=== PATIENT | male | born 1955 | race Caucasian/White ===

== ENCOUNTER 2024-03-31 13:45 | Inpatient (IN) | payer MEDICARE, OTHER, SELFPAY ==
[2024-03-31] VITALS (8 sets, daily range): BP systolic 89–146; BP diastolic 62–91; BMI 37.4
--- NOTE | 2024-03-31 10:54 | ED.GENMED ---
History of Present Illness
General
Chief Complaint: Breathing Problem
Source: patient
Exam Limitations: none
Time Seen by Provider: 03/31/24 10:44
Travel History
Have you had any contact with someone who has COVID-19?: No
Do you have any symptoms of coronavirus? Fever > 100 degrees, chills, cough, shortness of breath, sore throat, loss of taste or smell, muscle aches, or headache?: No
History of Present Illness
History of Present Illness:
69-year-old male with history of COPD, CHF on 3 L of oxygen chronically presents complaining of increased shortness of breath of the past 3 weeks with swelling in the legs. He is on Lasix 80 mg twice a day. He is also advised to take an additional
metolazone if he has increased swelling. He has been taking metolazone without any relief. He denies chest pain. No fevers. No abdominal pain. He is currently not anticoagulated and does have history of DVTs. No other complaints at this time
Past History
Past History
ED Past Medical History: Arrthythmia, CAD, CHF, COPD, HTN, Hypercholesterolemia, Other (Pancreatitis/pulmonary hypertension/sleep apnea) and Other (syncope req pacer/defib)
ED Past Surgical History: Cardiac (pacer/defib)
Patient has exhibited threatening behavior?: No
PSI?: No
Social History
Tobacco: Former smoker
Alcohol: None
Personal:
Living: with family
Employment: Employed
Family History
Family History: CAD and Other (Mother with coronary disease stents and CABG)
Phy Exam
Physical Exam
Physical Exam:
General: Chronically ill-appearing male slight increased work of breathing
HEENT: Normocephalic atraumatic heart: Regular rate and rhythm no murmurs
Lungs: Breath sounds distant bilaterally may be secondary to body habitus no obvious rales
Extremities: Significant pitting edema bilateral lower extremities
Skin is warm no rash
Scores
Heart Failure Risk
Heart Failure Risk Score: Not Applicable
Course
Orders/Labs/Results
Orders:
Orders
03/31/24 10:53
Venous Doppler Lwr Ext Bilat [US Periph Venous LOWER Ext Jonas] Urgent
Comment:
Reason For Exam: swelling
03/31/24 10:54
CR Chest - 2 Views Urgent
Comment:
Reason For Exam: sob
03/31/24 11:22
Complete Blood Count/With Diff Urgent
Comprehensive Metabolic Panel Urgent
Lipase Urgent
NT-proBNP Urgent
03/31/24 12:25
Furosemide [Lasix] 80 mg IV NOW STA
Abnormal Lab Results
03/31/24
11:22
WBC 14.5 H 10^3/uL
(4.8-10.8)
Hgb 11.1 L g/dL
(13.0-18.0)
MCV 79.7 L fL
(80.0-94.0)
MCH 22.5 L pg
(27.0-31.0)
MCHC 28.2 L g/dL
(33.0-37.0)
RDW 16.0 H %
(11.5-14.5)
Plt Count 439 H 10^3/uL
(130-400)
Abs Immat Gran (auto) 0.1 H 10^3/uL
(0-0.05)
Absolute Neuts (auto) 11.9 H 10^3/uL
(1.4-6.5)
Absolute Lymphs (auto) 0.8 L 10^3/uL
(1.2-3.4)
Absolute Monos (auto) 1.4 H 10^3/uL
(0.1-0.6)
Immature Gran % 0.8 H %
(0-0.5)
Neutrophils % 82.2 H %
(42.2-75.2)
Lymphocytes % 5.3 L %
(20.5-51.1)
Monocytes % 9.6 H %
(1.7-9.3)
Chloride 72 L mmol/L
(98-107)
Carbon Dioxide 55 H mmol/L
(22-30)
BUN 53 H mg/dl
(9-20)
Creatinine 1.7 H mg/dL
(0.7-1.3)
Glucose 134 H mg/dl
(70-99)
Albumin 3.4 L g/dl
(3.5-5.0)
03/31/24 11:22
03/31/24 11:22
Vital Signs
Initial and Last Documented VS:
Initial Vital Signs
Temp Pulse Resp BP Pulse Ox
99.2 F 71 20 130/69 93
03/31/24 10:26 03/31/24 10:26 03/31/24 10:26 03/31/24 10:26 03/31/24 10:26
Last Documented Vital Signs
Temp Pulse Resp BP Pulse Ox
99.2 F 71 20 130/69 93
03/31/24 10:26 03/31/24 10:26 03/31/24 10:26 03/31/24 10:26 03/31/24 10:26
MDM/Problems Addressed
Differential Diagnosis Includes:
Shortness of breath swelling. Consider CHF exacerbation versus COPD exacerbation. Will check for DVTs in the legs secondary to swelling. BNP basic labs chest x-ray pending.
I reviewed prior records. Most recent echocardiogram showed left ventricular ejection fractures greater than 75%
Chronic medical conditions affecting today's care including pulmonary hypertension, COPD and CHF
*Critical Care Note
Total Time (30-74mins, 75-104mins- exclusive of procedures): Not Applicable
Update Note
Update Note:
Chest x-ray demonstrates right pleural effusion. Patient is volume overloaded on exam. Suspect CHF flare. Venous ultrasound bilateral lower extremities negative for acute DVT. Lasix IV ordered. Will admit to hospital. Discussed with admitting
team.
ED Attending Note
-
Portions of this chart may have been created with voice recognition software.� Occasional wrong word or��sound alike� substitutions may have occurred due to the inherent limitations of voice recognition software.
Discharge Plan
Departure
Patient Disposition: Admit
Date of Disposition: 03/31/24
Time of Disposition: 12:26
Admit to: Telemetry
Presentation/result/management discussed w/ accepting MD/DO: Hospitalist
Discharge Problem:
CHF (congestive heart failure)
Prescriptions:
No Action
isosorbide mononitrate 30 MG tablet extended release 24 hr
30 mg PO DAILY
bupropion HCl 300 MG tablet extended release 24 hr
300 mg PO DAILY
budesonide [Pulmicort] 0.5 MG/2 ML suspension for nebulization
0.5 mg IH R BID
Patient Comments:
MIX WITH ARFORMOTEROL
arformoterol [Brovana] 15 MCG/2 ML solution for nebulization
15 mcg IH R BID
albuterol sulfate 2.5 MG/3 ML solution for nebulization
2.5 mg inhalation R Q4HPRN PRN (Reason: SOB)
Yupelri 175 MCG/3 ML solution for nebulization
175 mcg IH R DAILY@1200
aspirin 81 mg Tablet,Delayed Release (Dr/Ec)
81 mg PO DAILY
potassium chloride [Klor-Con M20] 20 MEQ tablet,ER particles/crystals
20 meq PO BID
furosemide 80 MG tablet
80 mg PO BID@0800,1600
prednisone 20 mg Tablet
40 mg PO DAILY Qty: 10 0RF
Rx Instructions:
for 5 days
metolazone 2.5 mg Tablet
2.5 mg PO DAILYPRN PRN (Reason: weight gain) Qty: 5 0RF
Rx Instructions:
for weight gain of 2-3 pounds take one tab
Referrals:
Paula Mariee MD [Family Provider] -
Interventions
Interventions:
*Risk Screen - Suicide Last Done: 03/31/24 11:54
*General Assessment Last Done: 03/31/24 11:54
*Neglect/Abuse Screening Last Done: 03/31/24 11:54
ED- Fall Risk Assessment Last Done: 03/31/24 11:54
*ED COVID-19 Vaccine History Last Done: 03/31/24 10:26
ED- Cardiac Assessment Last Done: 03/31/24 11:54
ED- Pulmonary Assessment Last Done: 03/31/24 11:54
Discharge Date and Time
Print Language: BHUTANESE
[2024-03-31 11:36] LABS: % Basophils 0.4 % (0-2); % Eosinophils 1.7 % (0-6); % Immature Granulocytes 0.8 % (0-0.5); % Lymphocytes 5.3 % (20.5-51.1); % Monocytes 9.6 % (1.7-9.3); % Neutrophils 82.2 % (42.2-75.2); Absolute Basophils 0.1 10^3/uL (0-0.2); Absolute Eosinophils 0.2 10^3/uL (0-0.7); Absolute Immature Granulocytes 0.1 10^3/uL (0-0.05); Absolute Lymphocytes 0.8 10^3/uL (1.2-3.4); Absolute Monocytes 1.4 10^3/uL (0.1-0.6); Absolute Neutrophils 11.9 10^3/uL (1.4-6.5); Hematocrit 39.3 % (39.0-52.0); Hemoglobin 11.1 g/dL (13.0-18.0); Mean Corp Hgb Conc. 28.2 g/dL (33.0-37.0); Mean Corpuscular Hgb 22.5 pg (27.0-31.0); Mean Corpuscular Volume 79.7 fL (80.0-94.0); Mean Platelet Volume 10.3 fL (7.4-10.4); Nucleated Red Blood Cells % 0 % (-); Platelet Count 439 10^3/uL (130-400); Red Blood Cell Count 4.93 10^6/uL (4.70-6.10); White Blood Cell Count 14.5 10^3/uL (4.8-10.8)
[2024-03-31 11:52] LABS: ALT (SGPT) 20 U/L (0-50); AST (SGOT) 27 U/L (17-59); Albumin 3.4 g/dl (3.5-5.0); Alkaline Phosphatase 112 U/L (38-126); Blood Urea Nitrogen 53 mg/dl (9-20); Calcium 8.7 mg/dl (8.4-10.2); Chloride 72 mmol/L (98-107); Glucose 134 mg/dl (70-99); Lipase 152 U/L (23-300); Sodium 135 mmol/L (135-145); Total Bilirubin 0.5 mg/dl (0.2-1.3); Total Protein 6.7 g/dl (6.3-8.2); eGFR 42.57
[2024-03-31 11:58] LABS: NT-proBNP 370 pg/ml
[2024-03-31 12:04] LABS: Carbon Dioxide 55 mmol/L (22-30)
[2024-03-31 12:21] LABS: Hypochromasia 1+; Normal RBC Morphology No; Stomatocytes Slight
[2024-03-31] MEDS: LASIX 80 MG IV ×2 (12:34→17:32)
[2024-03-31 13:13] LABS: Magnesium 2.3 mg/dl (1.6-2.3)
--- NOTE | 2024-03-31 13:41 | HPS.HSE ---
Addendum entered and electronically signed by Collette Meade MD 03/31/24 14:25:
I saw and examined the patient.
The [employer] or PA's note was reviewed and I agree with the note.
Comment:
69 male presented with worsening sob, edema in legs and weakness with lethargy over last few weeks
He started to gain weight since Rocco time. Last visit with his pulmonary [facility] doctor Dr Shah discussed need to treatment weight gain/edema and doing pulmonary rehab which pt declined due to need to some pre-rehab testing.
Hx of not using his C pap . Does not check SaO2 upon having lethargy episodes/ tremors.
Physical Exam
General: Comfortable and Conversant, obese.
HEENT: Anicteric, Moist mucous membranes and Oxygen (Nasal Cannula)
Respiratory: Mild wheezes (Expiratory - Scatter), Rales (Bilateral bases) and Non Labored Respirations
Cardiac: S1/S2 and Regular Rhythm; No Murmur
GI: Soft, Non Tender and Other (Protuberant)
Musculoskeletal: No Clubbing, No Cyanosis and Other (+3 pitting edema bilateral lower ext )
Skin: Warm and Dry; No Rash
Neuro: Awake, Alert, Oriented and Nonfocal/grossly intact
Psych: Calm
Assessment and plan
Acute on chronic dyspnea with wheezing/lethargy and trauma at home
History of obstructive sleep apnea/pulmonary hypertension/acute on chronic heart failure with preserved ejection fraction/weight gain-obesity/noncompliant to his CPAP although he reported he was trying to use it more than before (patient reported
intolerance to CPAP)
Decompensation secondary to worsening all the above
Admit the patient to the hospital/telemetry floor
Start the patient on IV diuretic treatment. Hold Zaroxolyn while using intravenous furosemide
Continue with oxygen therapy but avoid CO2 retention
No indication for antibiotics
Monitor renal function while on aggressive diuretic therapy
Counseling to lose weight and use medications/use of CPAP
Continue inhalation therapy
Short course of prednisone
CT of the chest to rule out right-sided pneumonia
Blood culture x 2
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 He saw Dr. Mars in the past.
Recent echo in April 2023 showed LVEF 75%/trace MR/mild to moderate TR with elevated pulmonary artery pressure at 44 mmHg.
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 Bill
Might need to repeat right heart catheterization, defer decision to response to diuretic treatment and further evaluation
Appreciate pulmonary and cardiology input
# Obesity
# Obstructive sleep apnea
# Chronic kidney disease stage IIIb
No renal colic or dysuria. No hematuria. Monitor renal function while on diuretics
# Primary hypertension
# History of orthostatic hypotension
# History of right subclavian DVT after dialysis catheter placement 2018
# History of VT status post single-chamber [employer] ICD in 2018
# History of polycythemia vera. Hemoglobin at 11
# DVT prophylaxis
Total time spent to see the patient, examine the patient on the floor, review data and lab results, discuss treatment plan with patient, ER doctor and nursing staff around 75 minutes
Original Note:
Family Physician
-
Family Physician: Paula Mariee
Chief Complaint
-
Shortness of breath and increased lower ext edema
History of Present Illness
This is a 69 year old male with a past medical history of COPD, pulmonary hypertension, CHF, V-Tach with defibrillator who presents today for worsening shortness of breathe and lower extremity swelling x 3 weeks. He has not been weighing himself
regularly and states his last weight he took was last Sunday at 256 lbs. Per at bedside, he has been stable at 240lbs last year. He is chronically on 3L O2 which he states he has been wearing daily and at night. He states his pulse ox at
home has been stable in the low 90's. He has been taking 80 mg Lasix BID and metolazone daily for the past 7-8 days without any relief of the LE edema. He also complains of increase in fatigue and need for sleep for the past week. He denies fevers,
chills, chest pain, palpitations, coughing, wheezing, N/V or abdominal pain.
Medical History
Past Medical History
Past Medical History: Reports Other
Additional Past Medical History:
Chronic Hypoxic Respiratory Failure
Pulmonary Hypertension
COPD
Obstructive Sleep Apnea
Non-Obstructive Coronary Artery Disease
Chronic HFpEF
CKD Stage III
Hx V-Tach s/p Defibrillator
Hx DVT
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
Past Surgical History: Reports Other
Additional Past Surgical History:
Pancreatic stent
Bowel Resection
Right Thumb Amputation
AICD Placement
Social History
Tobacco: Former Smoker (Quit over 30 years ago)
Personal:
Living: With Family
Family History
Family History: Not pertinent
Allergies / Home Medications
Allergies reflects when Allergies were last updated in [facility].
Home Medications with original date entered in [facility]
Allergy/Medication List:
Allergies
Allergy/AdvReac Type Severity Reaction Status Date / Time
Penicillins Allergy hives,rash Verified 03/31/24 10:28
Home Medications
bupropion HCl 300 mg 24 hr tablet, extended release 300 mg PO DAILY Depression 05/25/20
isosorbide mononitrate 30 mg tablet,extended release 24 hr 30 mg PO DAILY Heart disease/condition 05/25/20
albuterol sulfate 2.5 mg/3 mL (0.083 %) solution for nebulization 2.5 mg inhalation R Q4HPRN PRN shortness of breath 03/30/22
arformoterol 15 mcg/2 mL solution for nebulization (Brovana) 15 mcg IH R BID COPD 03/30/22
budesonide 0.5 mg/2 mL suspension for nebulization (Pulmicort) 0.5 mg IH R BID COPD 03/30/22
revefenacin 175 mcg/3 mL solution for nebulization (Yupelri) 175 mcg IH R DAILY@1200 COPD 03/30/22
aspirin 81 mg tablet,delayed release 81 mg PO DAILY Blood Clot Prevention/Tx 05/01/23
furosemide 80 mg tablet 80 mg PO BID@0800,1600 Fluid Retention/Swelling 05/01/23
potassium chloride 20 mEq tablet,extended release(part/cryst) (Klor-Con M) 20 meq PO BID Electrolyte Repletion 05/01/23
metolazone 2.5 mg tablet 2.5 mg PO DAILYPRN PRN weight gain #5 tabs 05/02/23
azithromycin 250 mg tablet 250 mg PO MOWEFR Lung/Breathing Issues 03/31/24
cholecalciferol (vitamin D3) 50 mcg (2,000 unit) capsule (Vitamin D3) 50 mcg PO DAILY Supplement 03/31/24
gabapentin 300 mg capsule 300 mg PO HS Pain 03/31/24
krill 500 mg-omega 3 115 mg-dha 30 mg-epa 64 [id number]-ibfyu capsule 1 cap PO DAILY Supplement 03/31/24
omeprazole 40 mg capsule,delayed release 40 mg PO DAILY Gastrointestinal Issue 03/31/24
Review of Systems
-
A 12 point ROS was completed and negative except as noted: Yes
Constitutional: Denies Fever or Chills
Respiratory: Reports Trouble Breathing; Denies Cough
Cardiac: Denies Chest Pain or Palpitations
Abdomen/GI: Denies Abdominal Pain, Nausea or Vomiting
Physical Exam
Vital Signs
Vital Signs
Temp Pulse Resp BP Pulse Ox
99.2 F 66 16 124/62 94
03/31/24 10:26 03/31/24 13:15 03/31/24 13:15 03/31/24 13:00 03/31/24 13:15
Physical Exam
General: Comfortable and Conversant
HEENT: Anicteric, Moist mucous membranes and Oxygen (Nasal Cannula)
Respiratory: Wheezes (Expiratory - Scatter), Rales (Bilateral bases) and Non Labored Respirations
Cardiac: S1/S2 and Regular Rhythm; No Murmur
GI: Soft, Non Tender and Other (Protubrant)
Musculoskeletal: No Clubbing, No Cyanosis and Other (+3 pitting edema bilateral lower ext )
Skin: Warm and Dry; No Rash
Neuro: Awake, Alert, Oriented and Nonfocal/grossly intact
Psych: Calm
Laboratory Results
-
03/31/24 11:22
03/31/24 11:
Laboratory Results
Total Bilirubin 0.5 mg/dl (0.2-1.3) 03/31/24 11:
AST 27 U/L (17-59) 03/31/24 11:
ALT 20 U/L (0-50) 03/31/24 11:22
Alkaline Phosphatase 112 U/L (38-126) 03/31/24 11:
Lipase 152 U/L (23-300) 03/31/24 11:22
Data Reviewed
-
Diagnostic Radiology: Report Reviewed by me
Lab Data: Labs Reviewed by me
Old Records: Reviewed
Impression/Plan
-
Acute on Chronic HFpEF, concern for worsening pulmonary hypertension
-Consult Cardiology and Pulmonary
-Check Echo
-Continue Lasix 80mg IV BID
-Monitor Is&Os and Daily Weights
Chronic Hypoxic Respiratory Failure
Pulmonary Hypertension
-Continue supplemental oxygen at 3L via nasal cannula
-Goal pulse ox 90-92%
COPD, no acute exacerbation
-Continue Brovano, Pulmicort and Yupelri
-Continue azithromycin
Non-Obstructive Coronary Artery Disease
-Continue isosorbide mononitrate
CKD Stage III
-Creatinine at baseline - Monitor closely while on diuretics
Depression
-Continue bupropion
DVT proph: SC Heparin
Code Status: Full Code
--- NOTE | 2024-03-31 15:44 | W.CON.NEPH ---
Consultation
-
Date/Time Consultation Performed: 03/31/2024 3:44PM
Requesting Provider: Lucy Ortiz
Performing Provider: Jeanine Gaona
Reason for Consultation: CKD
Medical History
-
Chief Complaint: CKD
History of Present Illness:
Mr. Valerio is a 69YOM with PMH of COPD, pHTN, CHF, Vtach (with defib) who presents with LE swelling and SOB. Weights seems to be elevated. Has been taking lasix 80mg PO BID and metolazone daily without improvement in swelling. He denies fevers,
chills, nausea, vomitting, diarrhea, or chest pain.
Nephrology is consulted for elevated Cr. It seems that he has ranged from 1.6-1.9 since 2021. He was 1.4 in 2019.
Past Medical History
Chronic Hypoxic Respiratory Failure
Pulmonary Hypertension
COPD
Obstructive Sleep Apnea
Non-Obstructive Coronary Artery Disease
Chronic HFpEF
CKD Stage III
Hx V-Tach s/p Defibrillator
Hx DVT
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
Past Surgical History: Other (Pancreatic stent Bowel Resection Right Thumb Amputation AICD Placement)
Social History
Tobacco: Former Smoker
Alcohol: None
Drug: None
Living: With Family
Family History
Family History: Not Pertinent
Allergies / Home Medications
Allergy/AdvReac Type Severity Reaction Status Date / Time
Penicillins Allergy hives,rash Verified 03/31/24 10:28
�Medication �Instructions �Recorded �Confirmed �Type
bupropion HCl 300 mg 24 hr tablet, 300 mg PO DAILY Depression 05/25/20 03/31/24 History
extended release
isosorbide mononitrate 30 mg 30 mg PO DAILY Heart 05/25/20 03/31/24 History
tablet,extended release 24 hr disease/condition
albuterol sulfate 2.5 mg/3 mL 2.5 mg inhalation R Q4HPRN PRN 03/30/22 03/31/24 History
(0.083 %) solution for nebulization shortness of breath
arformoterol 15 mcg/2 mL solution 15 mcg IH R BID COPD 03/30/22 03/31/24 History
for nebulization (Brovana)
budesonide 0.5 mg/2 mL suspension 0.5 mg IH R BID COPD 03/30/22 03/31/24 History
for nebulization (Pulmicort)
revefenacin 175 mcg/3 mL solution 175 mcg IH R DAILY@1200 COPD 03/30/22 03/31/24 History
for nebulization (Yupelri)
aspirin 81 mg tablet,delayed 81 mg PO DAILY Blood Clot 05/01/23 03/31/24 History
release Prevention/Tx
furosemide 80 mg tablet 80 mg PO BID@0800,1600 Fluid 05/01/23 03/31/24 History
Retention/Swelling
potassium chloride 20 mEq 20 meq PO BID Electrolyte Repletion 05/01/23 03/31/24 History
tablet,extended
release(part/cryst) (Klor-Con M)
metolazone 2.5 mg tablet 2.5 mg PO DAILYPRN PRN weight gain 05/02/23 03/31/24 Rx
#5 tabs
azithromycin 250 mg tablet 250 mg PO MOWEFR Lung/Breathing 03/31/24 03/31/24 History
Issues
cholecalciferol (vitamin D3) 50 50 mcg PO DAILY Supplement 03/31/24 03/31/24 History
mcg (2,000 unit) capsule (Vitamin
D3)
gabapentin 300 mg capsule 300 mg PO HS Pain 03/31/24 03/31/24 History
krill 500 mg-omega 3 115 mg-dha 30 1 cap PO DAILY Supplement 03/31/24 03/31/24 History
mg-epa 64 fy-ljqzpyn-hymsk capsule
omeprazole 40 mg capsule,delayed 40 mg PO DAILY Gastrointestinal 03/31/24 03/31/24 History
release Issue
Review of Systems
-
History Source: Patient and Family
All other systems: Negative unless noted
Constitutional: Weight Gain and Fatigue
Abdomen/GI: Abdominal Pain
Musculoskeletal: Edema
Physical Exam
Vital Signs
Vital Signs
Temp Pulse Resp BP Pulse Ox
99.2 F 68 19 124/62 94
03/31/24 10:26 03/31/24 13:31 03/31/24 13:31 03/31/24 13:00 03/31/24 13:15
Lab Results
WBC 14.5 10^3/uL (4.8-10.8) H 03/31/24 11:22
RBC 4.93 10^6/uL (4.70-6.10) 03/31/24 11:22
Hgb 11.1 g/dL (13.0-18.0) L 03/31/24 11:22
Hct 39.3 % (39.0-52.0) 03/31/24 11:22
Plt Count 439 10^3/uL (130-400) H 03/31/24 11:22
Sodium 135 mmol/L (135-145) 03/31/24 11:22
Potassium 4.0 mmol/L (3.5-5.1) 03/31/24 11:22
Chloride 72 mmol/L (98-107) L 03/31/24 11:22
Carbon Dioxide 55 mmol/L (22-30) H 03/31/24 11:22
BUN 53 mg/dl (9-20) H 03/31/24 11:22
Creatinine 1.7 mg/dL (0.7-1.3) H 03/31/24 11:22
eGFR 42.57 03/31/24 11:22
Glucose 134 mg/dl (70-99) H 03/31/24 11:22
Calcium 8.7 mg/dl (8.4-10.2) 03/31/24 11:22
Bmb-Z-Jfybvlgmtza Pept 370 pg/ml 03/31/24 11:22
Albumin 3.4 g/dl (3.5-5.0) L 03/31/24 11:22
Physical Exam
General: AOx3
HEENT: PERRL and EOMI
Respiratory: Nonlabored Respirations and Other (coarse breath sounds)
Cardiac: S1/S2, Regular Rate/Rhythm and Edema
Breast: N/A
Abdomen: Soft, Nontender, Nondistended and Normal Bowel Sounds
Rectal: Deferred by Provider
Genito-urinary: Clear Urine
Musculoskeletal: No Clubbing, No Cyanosis and No Edema
Skin: Other (lichenification of bilateral lower extremities)
Neuro: Nonfocal/Grossly Intact
Psych: Mood/afflect pleasant and Insight/judgement good
Data Reviewed
-
Radiology: Image Personally Visualized and interpreted (clear CXR)
Labs: Labs Reviewed by me, Discussed with Patient and Discussed with Family
Old Records: Reviewed
Assessment/Plan
-
Assessment:
CKD 3
worsenign dyspnea (HFpEF exacerbation)
CAD
Obesity
HTN
DVT
Plan:
- patient has had remarkably stable Cr over the past few years
- most likely has CKD due to cardiac dysfunction vs. longstanding hypertension
- obtain UA (last 2021) and KUS to have a new baseline
- continue to trend BMPs while on aggressive diuresis (80IV BID), will defer diuretic regimen to cards/pulm
- most likely he will need to follow up with nephrology while outpatient
--- NOTE | 2024-03-31 15:55 | CON.CAR ---
Addendum entered and electronically signed by Cedrick Herrera DO 03/31/24 17:17:
I saw and examined the patient.
The General Teller's note was reviewed and I agree with the note.
Comment:
Plan:
Acute on chronic diastolic heart failure.
Discussed compliance with diet as he has been noncompliant with significant dietary indiscretion which likely led to his heart failure.
IV Lasix diuresis. He previously did not respond to Furoscix as an outpatient.
Check echo
Check EKG
He previously required midodrine due to hypotension.
Discussed with family at bedside
Original Note:
Consultation
Consultation Request
Date/Time Consultation Requested: 03/31/24
Date/Time Consultation Performed: 03/31/24
Requesting Provider: Dr. Meade
Performing Provider: Dr. Herrera
Reason for Consultation: Acute HFpEF
Medical History
-
History of Present Illness:
Patient came to [facility] today with increased SOB and edema and is now being admitted with acute HF so cardiology has been consulted. Patient has a history of VT s/p ICD, diastolic CHF and pancreatitis. He had gallstone pancreatitis leading to
multisystem organ failure and VDRF 02/2018. He was diagnosed with pancreatic pseudocyst and necrotizing pancreatitis as well. He was treated at [facility]. Then he was admitted to 04/2018 and while here had sustained VT so he had a single chamber
Medtronic ICD placed. Patient has had 2-3 admissions a year for acute HF since 2018, last admission was 04/2023. Since then patient has been doing well taking his outpatient dose of Lasix 80 mg PO BID plus metolazone 2.5 mg daily PRN weight gain.
Patient was seen in the cardiology office for weight gain and acute HF last year and tried to use Furoscix outpatient SQ Lasix device without success. Patient and say that edema started after eating Easter ham about a month ago. He then had ham
leftovers for a week. Then he was eating [employer] based salads with crackers and other times eating pretzels. Patient had weight gain and increased edema that his was able to get under control with metolazone x1, but then he continued to eat
crackers and pretzels. His has given him metolazone daily for the last week without diuresis.
PMH:
Chronic HFpEF
CKD 3, baseline appears to be Cre 1.4-1.7
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
history of VT s/p single chamber Medtronic ICD 05/15/18 as secondary prevention for syncope, VT
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
Obstructive sleep apnea, noncompliant w/ CPAP
Non-obstructive CAD by cath 05/13/18
COPD/obstructive lung disease, oxygen dependent 3 lpm at rest, followed by [place] [facility]
Pulmonary hypertension
Hypertension
Hyperlipidemia
h/o orthostatic hypotension
Osteoarthritis
h/o R subclavian vein DVT after dialysis catheter placement 2018.
h/o calf DVT (?left)
h/o traumatic amputation of R thumb
Past Medical History
Past Medical History: Other (in HPI)
Past Surgical History: Cardiac (ICD)
Social History
Tobacco: Former Smoker
Alcohol: None
Drug: None
Personal:
Living: With Family
Family History
Family History: CAD
Allergies / Home Medications
Allergy/AdvReac Type Severity Reaction Status Date / Time
Penicillins Allergy hives,rash Verified 03/31/24 10:28
�Medication �Instructions �Recorded �Confirmed �Type
bupropion HCl 300 mg 24 hr tablet, 300 mg PO DAILY Depression 05/25/20 03/31/24 History
extended release
isosorbide mononitrate 30 mg 30 mg PO DAILY Heart 05/25/20 03/31/24 History
tablet,extended release 24 hr disease/condition
albuterol sulfate 2.5 mg/3 mL 2.5 mg inhalation R Q4HPRN PRN 03/30/22 03/31/24 History
(0.083 %) solution for nebulization shortness of breath
arformoterol 15 mcg/2 mL solution 15 mcg IH R BID COPD 03/30/22 03/31/24 History
for nebulization (Brovana)
budesonide 0.5 mg/2 mL suspension 0.5 mg IH R BID COPD 03/30/22 03/31/24 History
for nebulization (Pulmicort)
revefenacin 175 mcg/3 mL solution 175 mcg IH R DAILY@1200 COPD 03/30/22 03/31/24 History
for nebulization (Yupelri)
aspirin 81 mg tablet,delayed 81 mg PO DAILY Blood Clot 05/01/23 03/31/24 History
release Prevention/Tx
furosemide 80 mg tablet 80 mg PO BID@0800,1600 Fluid 05/01/23 03/31/24 History
Retention/Swelling
potassium chloride 20 mEq 20 meq PO BID Electrolyte Repletion 05/01/23 03/31/24 History
tablet,extended
release(part/cryst) (Klor-Con M)
metolazone 2.5 mg tablet 2.5 mg PO DAILYPRN PRN weight gain 05/02/23 03/31/24 Rx
#5 tabs
azithromycin 250 mg tablet 250 mg PO MOWEFR Lung/Breathing 03/31/24 03/31/24 History
Issues
cholecalciferol (vitamin D3) 50 50 mcg PO DAILY Supplement 03/31/24 03/31/24 History
mcg (2,000 unit) capsule (Vitamin
D3)
gabapentin 300 mg capsule 300 mg PO HS Pain 03/31/24 03/31/24 History
krill 500 mg-omega 3 115 mg-dha 30 1 cap PO DAILY Supplement 03/31/24 03/31/24 History
mg-epa 64 [id number] capsule
omeprazole 40 mg capsule,delayed 40 mg PO DAILY Gastrointestinal 03/31/24 03/31/24 History
release Issue
Review of Systems
-
History Source: Patient
All other systems: Negative unless noted
Physical Exam
Vital Signs
Temp Pulse Resp BP Pulse Ox
99.2 F 68 19 124/62 94
03/31/24 10:26 03/31/24 13:31 03/31/24 13:31 03/31/24 13:00 03/31/24 13:15
GEN: No distress, awake, alert and oriented x3
HEENT: EOMI, MMM
LUNGS: Wearing oxygen at 3 L NC. Coarse BS without wheeze
CV: Reg, S1/S2, distant, heart sounds, no murmur
ABD: soft, BS+, NT, ND
EXT: +2 B/L right greater than left LE edema, no clubbing, cyanosis or lesions B/L
NEURO: Gross non-focal
SKIN: Warm, dry and pink. No rash
Lab Results
03/31/24 11:22
03/31/24 11:22
Zhv-M-Marwmqvxnvs Pept 370 pg/ml 03/31/24 11:22
Impression / Plan
-
PCP: Dr. Mariee
Primary Tester Equipment: Dr. Bill
Impression:
Acute on chronic HFpEF
Dietary indiscretion
CKD 3, baseline appears to be Cre 1.4-1.7
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
history of VT s/p single chamber Medtronic ICD 05/15/18 as secondary prevention for syncope, VT
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
Obstructive sleep apnea, noncompliant w/ CPAP
Non-obstructive CAD by cath 05/13/18
COPD/obstructive lung disease, oxygen dependent 3 lpm at rest, followed by [place] [facility]
Pulmonary hypertension
Hypertension
Hyperlipidemia
h/o orthostatic hypotension
Osteoarthritis
h/o R subclavian vein DVT after dialysis catheter placement 2017.
h/o calf DVT (?left)
h/o traumatic amputation of R thumb
ECHO 03/28/22: Technically difficult study, Definity used, EF 70%, moderate concentric LVH, hypokinetic RV free wall, PAP 45 to 50 mmHg
ECHO 05/02/23: EF greater than 75%, posterior MAC, thickened mitral valve leaflets, trace MR, mild to moderate TR, PAP 44 mmHg, dilated hypokinetic RV, no significant change compared to prior
Plan:
-Patient came to [facility] today with increased SOB and edema and is now being admitted with acute HF so cardiology has been consulted. Patient has a history of VT s/p ICD, diastolic CHF and pancreatitis. He had gallstone pancreatitis leading to
multisystem organ failure and VDRF 02/2018. He was diagnosed with pancreatic pseudocyst and necrotizing pancreatitis as well. He was treated at [facility]. Then he was admitted to 04/2018 and while here had sustained VT so he had a single chamber
Medtronic ICD placed. Patient has had 2-3 admissions a year for acute HF since 2018, last admission was 04/2023. Since then patient has been doing well taking his outpatient dose of Lasix 80 mg PO BID plus metolazone 2.5 mg daily PRN weight gain.
Patient was seen in the cardiology office for weight gain and acute HF last year and tried to use Furoscix outpatient SQ Lasix device without success. Patient and say that edema started after eating Easter ham about a month ago. He then had ham
leftovers for a week. Then he was eating [employer] salads with crackers and other times eating pretzels. Patient had weight gain and increased edema that his was able to get under control with metolazone x1, but then he continued to eat
crackers and pretzels. His has given him metolazone daily for the last week without diuresis.
-Weight not checked in the ER, but dry weight at last d/c was 235 lbs on 05/02/23.
-Patient has stopped responding to metolazone in addition to his Lasix 80 mg PO BID. Of note he previously did not respond to Furoscix as an outpatient.
-Recommend Lasix 80 mg IV BID for now. Can use metolazone PRN if no appreciable diuresis in the next 24 hours.
-Agree with checking echo
-EF was preserved by last echo 05/02/23
-Patient with a h/o hypotension and previously required midodrine. Not chronically on BB or HARI/ARB/ARNI.
-Device check this admission. He has a h/o VT in 2018, but no VT on last device check 11/2023
-Patient with known CKD 3 and nephrology has been consulted
-ECG not checked in ER, ordered, await results
[2024-03-31 16:08] LABS: TSH Reflex To Free T4 1.83 uIU/ml (0.47-4.68)
[2024-03-31] MEDS: HEPARIN 5000 UNITS SC (17:30)
[2024-03-31] MEDS: VENTOLIN NEBULES INH (17:30)
[2024-03-31] MEDS: PULMICORT 0.5 MG INH (18:10)
[2024-03-31] MEDS: VENTOLIN NEBULES 2.5 MG INH (18:10)
[2024-03-31 20:29] LABS: Urine Albumin Negative (Neg - Trace); Urine Bilirubin Negative (Negative); Urine Character Clear (Clear); Urine Color Yellow; Urine Glucose Negative (Negative); Urine Ketone Negative (Negative); Urine Leukocyte Trace (Negative); Urine Nitrite Negative (Negative); Urine Occult Blood Negative (Negative); Urine Urobilinogen Negative (Neg - 1+)
[2024-03-31 20:40] LABS: Urine Bacteria Few (Negative); Urine Red Blood Cell 0-2 /HPF (0-2)
[2024-03-31] MEDS: KCL 20 MEQ PO (21:02)
[2024-03-31] MEDS: NEURONTIN 300 MG PO (22:51)
[2024-04-01] VITALS (9 sets, daily range): BP systolic 117–147; BP diastolic 67–77; PULSE 2–94; O2SAT 91–92; BMI 37.0
[2024-04-01] MEDS: HEPARIN SC (01:15)
[2024-04-01] MEDS: VENTOLIN NEBULES 2.5 MG INH ×3 (07:35→19:31)
[2024-04-01] MEDS: SPIRIVA RESPIMAT 2.5 MCG 2 PUFF INH (07:35)
[2024-04-01] MEDS: PULMICORT 0.5 MG INH ×2 (07:35→19:31)
[2024-04-01 07:59] LABS: Hematocrit 41.7 % (39.0-52.0); Hemoglobin 11.7 g/dL (13.0-18.0); Mean Corp Hgb Conc. 28.1 g/dL (33.0-37.0); Mean Corpuscular Hgb 22.5 pg (27.0-31.0); Mean Corpuscular Volume 80.3 fL (80.0-94.0); Mean Platelet Volume 10.4 fL (7.4-10.4); Platelet Count 436 10^3/uL (130-400); Red Blood Cell Count 5.19 10^6/uL (4.70-6.10); White Blood Cell Count 10.7 10^3/uL (4.8-10.8)
[2024-04-01] MEDS: KCL 20 MEQ PO ×2 (08:10→20:13)
[2024-04-01] MEDS: ASPIR LOW (ENTERIC COATED) 81 MG PO (08:10)
[2024-04-01] MEDS: IMDUR (EXTENDED RELEASE) 30 MG PO (08:10)
[2024-04-01] MEDS: WELLBUTRIN XL (24 hour extended release) 150 MG PO (08:11)
[2024-04-01] MEDS: HEPARIN 5000 UNITS SC ×3 (08:11→23:34)
[2024-04-01] MEDS: PROTONIX 40 MG PO (08:11)
[2024-04-01] MEDS: LASIX 80 MG IV ×2 (08:12→15:52)
[2024-04-01 09:12] LABS: Blood Urea Nitrogen 53 mg/dl (9-20); Calcium 8.7 mg/dl (8.4-10.2); Chloride 71 mmol/L (98-107); Estimated Creatinine Clearance 46 ml/min; Glucose 107 mg/dl (70-99); HDL Cholesterol 31 mg/dl; LDL Cholesterol, Calculated 127 mg/dl; Magnesium 2.2 mg/dl (1.6-2.3); Potassium 3.7 mmol/L (3.5-5.1); Sodium 135 mmol/L (135-145); Total Cholesterol 194 mg/dl (50-199); Triglyceride 184 mg/dl (10-149); Very Low Density Lipoprotein 36 mg/dl (0-30); eGFR 39.75
[2024-04-01 09:25] LABS: Carbon Dioxide 50 mmol/L (22-30)
--- NOTE | 2024-04-01 09:51 | PTCARENOTE ---
Assumed care of patient at AM shift change. Pt pleasant, AAOx3, on 3L NC. Pt reports feeling better than yesterday, sitting OOB in chair eating breakfast. No complaints at this time. Updated on plan of care. Call abdul within reach.
--- NOTE | 2024-04-01 10:07 | CARDSERVLU ---
Echocardiogram with [facility] completed after protocol screening completed. Allergies verified.
Patent IV site: _Right forearm site clear (in patient)____
IV site flushed with 0.9% NaCl pre and post administration.
Diluted bolus method utilized to enhance visualization of ventricular jackson.
Total volume given: ___3_ mL
Patient tolerated all procedures well without complications.
--- NOTE | 2024-04-01 11:01 | W.PN.CARDCBS ---
Addendum entered and electronically signed by Kushal Bill MD 04/01/24 14:13:
I saw and examined the patient.
The Probate Clerk's note was reviewed and I agree with the note.
Comment:
GEN: No distress, awake, Ox3
HEENT: supple, anicteric, mmm
LUNGS: CTA, no wheezes/rales
CV: Reg, S1/S2, 1/6 syst LSB, no gallop
ABD: soft, BS+, NT, mild distended
EXT: No edema
NEURO: Gross non-focal
SKIN: No rash
Plan:
Appears to still be volume overloaded. Will attempt to continue to diurese with metolazone.
Creatinine stable at 1.8.
Check echocardiogram today.
He has had significant orthostasis in the past.
Continue Imdur.
Original Note:
Today's Communication / Plan
-
Will give metolazone with this afternoon's Lasix 80 mg IV
Echo pending
Impression / Plan
-
PCP: Dr. Mariee
Primary Drilling Plant Operator: Dr. Bill
Impression:
Acute on chronic HFpEF
Dietary indiscretion
CKD 3, baseline appears to be Cre 1.4-1.7
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
history of VT s/p single chamber Medtronic ICD 05/15/18 as secondary prevention for syncope, VT
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
Obstructive sleep apnea, noncompliant w/ CPAP
Non-obstructive CAD by cath 05/13/18
COPD/obstructive lung disease, oxygen dependent 3 lpm at rest, followed by [place] [facility]
Pulmonary hypertension
Hypertension
Hyperlipidemia
h/o orthostatic hypotension
Osteoarthritis
h/o R subclavian vein DVT after dialysis catheter placement 2017.
h/o calf DVT (?left)
h/o traumatic amputation of R thumb
ECHO 03/28/22: Technically difficult study, Definity used, EF 70%, moderate concentric LVH, hypokinetic RV free wall, PAP 45 to 50 mmHg
ECHO 05/02/23: EF greater than 75%, posterior MAC, thickened mitral valve leaflets, trace MR, mild to moderate TR, PAP 44 mmHg, dilated hypokinetic RV, no significant change compared to prior
Echo 04/01/24: Study pending
Plan:
-Weight is down at least 3 lbs overnight. Cont Lasix 80 mg IV BID. Will give a dose of metolazone 2.5 mg with 04/01/24 afternoon dose of Lasix. Patient was taking Lasix 80 mg PO BID and metolazone 2.5 mg daily prior to admission.
-Patient had stopped responding to metolazone in addition to his Lasix 80 mg PO BID prior to admission and of note he previously did not respond to Furoscix as an outpatient.
-EF was preserved by last echo 05/02/23
-Patient with a h/o hypotension and previously required midodrine. Not chronically on BB or HARI/ARB/ARNI.
-Patient with known CKD 3 and nephrology has been consulted. Kidney and bladder u/s ordered
-ECG reviewed by me with SR
HPI: Patient came to [facility] today with increased SOB and edema and is now being admitted with acute HF so cardiology has been consulted. Patient has a history of VT s/p ICD, diastolic CHF and pancreatitis. He had gallstone pancreatitis leading to
multisystem organ failure and VDRF 02/2018. He was diagnosed with pancreatic pseudocyst and necrotizing pancreatitis as well. He was treated at [facility]. Then he was admitted to 04/2018 and while here had sustained VT so he had a single chamber
Medtronic ICD placed. Patient has had 2-3 admissions a year for acute HF since 2018, last admission was 04/2023. Since then patient has been doing well taking his outpatient dose of Lasix 80 mg PO BID plus metolazone 2.5 mg daily PRN weight gain.
Patient was seen in the cardiology office for weight gain and acute HF last year and tried to use Furoscix outpatient SQ Lasix device without success. Patient and say that edema started after eating Easter ham about a month ago. He then had ham
leftovers for a week. Then he was eating [email or web address] based salads with crackers and other times eating pretzels. Patient had weight gain and increased edema that his was able to get under control with metolazone x1, but then he continued to eat
crackers and pretzels. His has given him metolazone daily for the last week without diuresis.
Progress Note - Drilling Plant Operator
Subjective
Date of Service: April 01, 2024
He feels better, LE edema has improved as well
Objective
Labs:
04/01/24 07:25
04/01/24 07:25
Labs
Hgb 11.7 g/dL (13.0-18.0) L 04/01/24 07:25
Hct 41.7 % (39.0-52.0) 04/01/24 07:25
Plt Count 436 10^3/uL (130-400) H 04/01/24 07:25
Sodium 135 mmol/L (135-145) 04/01/24 07:25
Potassium 3.7 mmol/L (3.5-5.1) 04/01/24 07:25
BUN 53 mg/dl (9-20) H 04/01/24 07:25
Creatinine 1.8 mg/dL (0.7-1.3) H 04/01/24 07:25
Glucose 107 mg/dl (70-99) H 04/01/24 07:25
Vital Signs and I&O:
Vital Signs
Temp Pulse Resp BP Pulse Ox
98.4 F 84 20 122/72 95
04/01/24 07:30 04/01/24 08:30 04/01/24 08:30 04/01/24 08:12 04/01/24 08:30
Vital Signs
Temp Pulse Resp BP Pulse Ox
98.4 F 84 20 122/72 95
04/01/24 07:30 04/01/24 08:30 04/01/24 08:30 04/01/24 08:12 04/01/24 08:30
Intake & Output
03/30/24 03/31/24 04/01/24 04/02/24
06:59 06:59 06:59 06:59
Intake Total 720 / 720
Output Total 600 / 600
Balance 120 / 120
Physical Exam
Physical Exam
GEN: NAD. AAOx3
HEENT: EOMI
LUNGS: Wearing oxygen at 3 L NC. No audible wheeze
CV: SR on tele
ABD: ND
EXT: +1-2 B/L right greater than left LE edema
NEURO: Gross non-focal
SKIN: No rash
--- NOTE | 2024-04-01 11:04 | W.PN.HOSP.TC ---
Addendum entered and electronically signed by Collette Meade MD 04/01/24 18:44:
Addendum
ABG is resulted. Patient has high CO2 with some lethargy
Discussed with patient and his at bedside. Will moved to IMU for BiPAP. Hopefully he will be able to tolerate it
End
Original Note:
Today's Communication/Plan
-
.
Assessment / Plan
Assessment / Plan
Physical Exam
General: Comfortable and Conversant, obese.
HEENT: Anicteric, Moist mucous membranes and Oxygen (Nasal Cannula)
Respiratory: Mild wheezes (Expiratory - Scatter), Rales (Bilateral bases) and Non Labored Respirations
Cardiac: S1/S2
GI: Soft, Non Tender and Other (Protuberant)
: No Brown, + scrotal swelling.
Musculoskeletal: No Clubbing, No Cyanosis. Less edema in both legs
Skin: Warm and Dry; No Rash
Neuro: Awake, Alert, Oriented and Nonfocal/grossly intact
Psych: Calm
Acute on chronic dyspnea with wheezing/lethargy and trauma at home
History of obstructive sleep apnea/pulmonary hypertension/acute on chronic heart failure with preserved ( diastolic)ejection fraction/weight gain-obesity/noncompliant to his CPAP although he reported he was trying to use it more than before (patient
reported intolerance to CPAP)
Decompensation secondary to worsening all the above
He seems to feel better, more alert, denies sob today, less edema in legs and scrotum. Hold Zaroxolyn while using intravenous furosemide
Continue with oxygen therapy but avoid CO2 retention. Admission Pro-BNP 370.
No indication for antibiotics. Will ask for daily weight.
Monitor renal function while on aggressive diuretic therapy
Counseling to lose weight and use medications/use of CPAP
Continue inhalation therapy
CT of the chest showed Complete right middle lobe collapse, new from prior. Difficult to exclude a central obstructing lesion. Consider nonemergent bronchoscopy. Will d/w pulmonary doctor.
Blood culture x 2 NGTD
Primary hot billet shear operator with [place] [facility]/Dr. Shah. He saw Dr. Mars in the past.
Recent echo in April 2023 showed LVEF 75%/trace MR/mild to moderate TR with elevated pulmonary artery pressure at 44 mmHg.
Primary president and chief commercial officer Dr. Bill
Might need to repeat right heart catheterization, defer decision to response to diuretic treatment and further evaluation
Appreciate pulmonary and cardiology input
# Obesity
# Obstructive sleep apnea
# Chronic kidney disease stage IIIb
No renal colic or dysuria. No hematuria. Monitor renal function while on diuretics
Renal US No hydronephrosis on either side. Renal Cortical atrophy suggestive of medical renal disease.
# Primary hypertension
# History of orthostatic hypotension
# History of right subclavian DVT after dialysis catheter placement 2017
# History of VT status post single-chamber Medtronic ICD in 2018
# History of polycythemia vera. Hemoglobin at 11
# DVT prophylaxis
Total time spent to see the patient, examine the patient on the floor, review data and lab results, discuss treatment plan with patient and nursing staff around 55 minutes
Anticipated Discharge: > 48 hours
Subjective/Interval History
-
Date of Service: April 01, 2024
He feels better
No sob, no chest pain
Objective Data
-
Labs:
Laboratory Results
04/01/24
07:25
WBC 10.7
Hgb 11.7 L
Hct 41.7
Plt Count 436 H
Sodium 135
Potassium 3.7
Chloride 71 L
Carbon Dioxide 50 H
BUN 53 H
Creatinine 1.8 H
Glucose 107 H
Calcium 8.7
Vital Signs:
Vital Signs
Temp Pulse Resp BP Pulse Ox
98.4 F 84 20 122/72 95
04/01/24 07:30 04/01/24 08:30 04/01/24 08:30 04/01/24 08:12 04/01/24 08:30
I&O
03/31/24 04/01/24 04/02/24
06:59 06:59 06:59
Intake Total 720 / 720
Output Total 600 / 600
Balance 120 / 120
--- NOTE | 2024-04-01 11:18 | CON.PUL ---
Consultation
Consultation Request
Date/Time Consultation Requested: 04/01/24
Date/Time Consultation Performed: 04/01/24
Performing Provider: Radha
Reason for Consultation: SOB
Medical History
-
History of Present Illness:
69 year old male with a past medical history of COPD, pulmonary hypertension, CHF, V-Tach with defibrillator who presents today for worsening shortness of breathe and lower extremity swelling x 3 weeks. He has not been weighing himself regularly and
states his last weight he took was last Sunday at 256 lbs. Per at bedside, he has been stable at 240lbs last year. He is chronically on 3L O2 which he states he has been wearing daily and at night. He states his pulse ox at home has been
stable in the low 90's. He has been taking 80 mg Lasix BID and metolazone daily for the past 7-8 days without any relief of the LE edema. He also complains of increase in fatigue and need for sleep for the past week. notes that he has not been
compliant with cardiac diet/low salt.
He has history of severe GUCCI and noncompliant with CPAP, last ABG 2 years ago showing Co2 levels are >100.
Had been seeing Dr Mars in past, but notes he now goes to [facility]. She was told by someone there that his CO2 levels were due to excessive oxygen administration. He has yet to have a follow up sleep study following weight loss per
.
Past Medical History
Past Medical History: Other (see list below)
Social History
Tobacco: Former Smoker
Alcohol: None
Drug: None
Family History
Family History: Reviewed & Not Pertinent
Allergies / Home Medications
Allergies
Allergy/AdvReac Type Severity Reaction Status Date / Time
Penicillins Allergy hives,rash Verified 03/31/24 10:28
Home Medications
�Medication �Instructions �Recorded �Confirmed �Last Taken �Type
bupropion HCl 300 mg 24 hr tablet, 300 mg PO DAILY Depression 05/25/20 03/31/24 03/31/24 History
extended release
isosorbide mononitrate 30 mg 30 mg PO DAILY Heart 05/25/20 03/31/24 03/31/24 History
tablet,extended release 24 hr disease/condition
albuterol sulfate 2.5 mg/3 mL 2.5 mg inhalation R Q4HPRN PRN 03/30/22 03/31/24 03/29/22 19:00 History
(0.083 %) solution for nebulization shortness of breath
arformoterol 15 mcg/2 mL solution 15 mcg IH R BID COPD 03/30/22 03/31/24 03/30/24 History
for nebulization (Brovana)
budesonide 0.5 mg/2 mL suspension 0.5 mg IH R BID COPD 03/30/22 03/31/24 03/30/24 History
for nebulization (Pulmicort)
revefenacin 175 mcg/3 mL solution 175 mcg IH R DAILY@1200 COPD 03/30/22 03/31/24 03/31/24 History
for nebulization (Yupelri)
aspirin 81 mg tablet,delayed 81 mg PO DAILY Blood Clot 05/01/23 03/31/24 03/31/24 History
release Prevention/Tx
furosemide 80 mg tablet 80 mg PO BID@0800,1600 Fluid 05/01/23 03/31/24 03/31/24 History
Retention/Swelling
potassium chloride 20 mEq 20 meq PO BID Electrolyte Repletion 05/01/23 03/31/24 03/31/24 History
tablet,extended
release(part/cryst) (Klor-Con M)
metolazone 2.5 mg tablet 2.5 mg PO DAILYPRN PRN weight gain 05/02/23 03/31/24 03/31/24 Rx
#5 tabs
azithromycin 250 mg tablet 250 mg PO MOWEFR Lung/Breathing 03/31/24 03/31/24 03/31/24 History
Issues
cholecalciferol (vitamin D3) 50 50 mcg PO DAILY Supplement 03/31/24 03/31/2424 History
mcg (2,000 unit) capsule (Vitamin
D3)
gabapentin 300 mg capsule 300 mg PO HS Pain 03/31/24 03/31/24 03/30/24 History
krill 500 mg-omega 3 115 mg-dha 30 1 cap PO DAILY Supplement 03/31/24 03/31/24 03/31/24 History
mg-epa 64 [id number] capsule
omeprazole 40 mg capsule,delayed 40 mg PO DAILY Gastrointestinal 03/31/24 03/31/24 03/31/24 History
release Issue
Review of Systems
-
History Source: Patient
All other systems: Negative unless noted
Vitals / Labs / Diagnostic Testing
Vital Signs
Temp Pulse Resp BP Pulse Ox
98.4 F 84 20 122/72 95
04/01/24 07:30 04/01/24 08:30 04/01/24 08:30 04/01/24 08:12 04/01/24 08:30
Lab Data
04/01/24 07:25
04/01/24 07:25
Diagnostic Testing:
Physical Exam
-
HEENT: Normocephalic, Anicteric, Moist Mucous Membranes and Other (edentulous)
Cardiovascular: S1/S2, Regular Rhythm and Peripheral Edema (bilateral)
Respiratory: Clear (overall very diminished) and Non-Labored Respirations
GI: Soft, Non Distended and Non Tender
Neurology: Awake, Alert, Oriented, AO x 3 and No Motor Deficits
Skin: Warm and Dry
General: Comfortable and Other (NAD)
Assessment
-
69 year old male with a past medical history of COPD, pulmonary hypertension, CHF, V-Tach with defibrillator who presents today for worsening shortness of breathe and lower extremity swelling x 3 weeks. He has not been weighing himself regularly and
states his last weight he took was last Sunday at 256 lbs. Per at bedside, he has been stable at 240lbs last year. He is chronically on 3L O2 which he states he has been wearing daily and at night. He states his pulse ox at home has been
stable in the low 90's. He has been taking 80 mg Lasix BID and metolazone daily for the past 7-8 days without any relief of the LE edema. He also complains of increase in fatigue and need for sleep for the past week. notes that he has not been
compliant with cardiac diet/low salt.
AECHF
RML collapse/atelectasis
Acute hypercarbic respiratory failure, suspected
History of noncompliance
Conditions present prior admission:
COVID pneumonia, adm Aug, received dexam/remdesivir
COPD, end stage, on home oxygen 11/06 at 3L of supplemental oxygen, chronic hypoxemia/hypercarbia, chronic elevation of Hgb
Dr. Mars
On albuterol HFA, arformoterol, budesonide, revefenacin (yupelri)
PFT 02/22/2021: FEV1 1.07 L - 35%. FVC 2.19 L - 52%-severe airflow obstruction.
RV dysfunction on TTE 03-28-22 as c/w April 2021 (but trace TR)
ABG 04/04/22: pH 7.31/109/34/54.9
HFpEF ([facility] 03-30-22)
Hypertension
Obstructive sleep apnea-AHI 52 events per hour, marginal compliance to CPAP
Chronic kidney disease, temporary placement HD catheter 03-14-18 for MONTSERRAT
Morbid obesity
Ventricular tachycardia status post ICD
Coronary artery disease
Hyperlipidemia
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
Former smoker
Pulmonary hypertension: Likely post capillary/obstructive sleep apnea
New RLE DVT 11-23-21 (negative RLE doppler 11-03-21): ER visit 11-23-21 (no PE on CTA), d/c home on apixaban. Denies prior h/o DVT
Plan
Patient has history of chronic oxygen use, currently 95% on 3L NC
Prior history of lung disease is noted including:
He has history of severe GUCCI and noncompliant with CPAP, last ABG 2 years ago showing Co2 levels are >100.
Had been seeing Dr Mars in past, but notes he now goes to [facility]. She was told by someone there that his CO2 levels were due to excessive oxygen administration.
He has yet to have a follow up sleep study following weight loss per .
COPD, last PFT 2020 with severe obstruction
Suspect patient has underlying acute retention of CO2, causing possible daytime sleepiness
Repeat ABG
Has noncompliance wtih CPAP
very argumentative about this, did not receive BIPAP from DME, patient does not want to use this
She felt O2 was the cause of his issues
AHI 50 on last sleep study
CXR obtained indicating RML collapse
New finding, CT confirmed
I suspect this is from OHS, but if not improved on subsequent imaging may need advanced procedure which would be high risk
Trial BIPAP, repeat imaging in next 24-48 hours
Airway clearance/nebs/vest needed
LE swelling and SOB noted, CXR reviewed without significant edema
proBNP not significantly elevated
Prior ECHO reviewed, stable function
Diuresis per cards team
Weight loss measures recommended
Obesity contributing to respiratory symptoms
Outpatient pulmonary FU at [place] post discharge
We will follow
Diagnostic Data
CXR 05-01-23 c/w 11-23-21. Baseline poor quality film with limited lung span but no gross infiltrates, L chest AICD. Current film portable with no infiltrates
CXR 03/31/24- 1. Right middle lobe opacity, which may represent pneumonia or atelectasis.
2. No significant pleural effusion on either side.
CT Chest 03/31/24- . Complete right middle lobe collapse, new from prior. Difficult to exclude a central obstructing lesion. Consider nonemergent bronchoscopy.
Chest CTA 11-23-21, c/w CT 03-09-18 IMPRESSION: No evidence of pulmonary embolus. Mild lower thoracic spine anterior wedge compression fracture. Stable parenchymal scarring. Stable
LUBA doppler 05-02-23 IMPRESSION:
1. No sonographic evidence for acute lower extremity venous thrombosis.
2. Chronic nonocclusive deep venous thrombosis in the right femoral vein.
LUBA doppler 11-23-21, c/w 11-03-21 IMPRESSION: Findings suggesting acute DVT of the right lower extremity from the mid thigh to and including the right knee. New.
TTE 05-02-23 CONCLUSIONS: Normal left ventricular wall thickness. Normal left ventricular systolic function. Normal left ventricular chamber size. Left ventricular ejection fraction is greater than 75% by Cottrell's method. Normal diastolic
function. Mitral valve opens normally. Posterior mitral annular calcification. Thickened mitral valve leaflets. Trace mitral regurgitation is seen. Trileaflet aortic valve. Thickened calcified aortic valve with adequate leaflet excursion. No
aortic regurgitation is seen. Tricuspid valve opens normally. Mild to moderate tricuspid regurgitation. Estimated pulmonary artery pressure of 44 mmHg, assuming a right atrial pressure of 3 mmHg. Dilated hypokinetic right ventricle. Since
echocardiogram March 2022, there is no significant change.
TTE 03-28-22 CONCLUSIONS: Technically difficult study - Definity used. Normal left ventricular chamber size. Normal left ventricular systolic function. Left ventricular ejection fraction is 70% by Cottrell's Method of Disc. Moderate concentric left
ventricular hypertrophy. Top normal right ventricular size - hypokinetic right ventricular free wall. ICD wire seen in right ventricle. No mitral regurgitation is seen. Structurally normal aortic valve without significant stenosis or regurgitation.
Trace tricuspid regurgitation. Estimated pulmonary artery pressure of 45-50 mmHg assuming a right atrial pressure of 3 mmHg. Structurally normal pulmonic valve without significant stenosis or regurgitation. Normal pericardium and pleura without
evidence of effusion. The aortic root is normal in caliber. The IVC is of normal size and demonstrates normal respiratory variation. Since echocardiogram from 04/2021 the right ventricle is now hypokinetic (mild to moderate hypokinesis)
[facility] 03-30-22
Hemodynamics (mmHg):
RA (m) : 18
RV (s/d) : 78/14
PA (s/d, m) : 75/28, 43
PCWP (m) : 34
Cardiac Output : 6.9 L/min
Cardiac Index : 2.9 L/min/m-2
Pulmonary vascular resistance: 104 [id number]
Systemic vascular resistance: 1123 [id number]
CONCLUSION:
1. Group 2 pulmonary hypertension with elevated left ventricular filling pressures and normal pulmonary artery pressures. No significant transpulmonary gradient
PFT's: 02/22/2021, FEV1 1.07 (35%), FVC 2.19 (52%). Severe obstruction.
[2024-04-01] MEDS: VENTOLIN NEBULES INH (11:52)
--- NOTE | 2024-04-01 14:17 | W.PN.NEPH.PH ---
Today's Communication / Plan
-
- sign off
Assessment/Plan
-
Assessment:
CKD 3
worsenign dyspnea (HFpEF exacerbation)
CAD
Obesity
HTN
DVT
Plan:
- patient has had remarkably stable Cr over the past few years
- most likely has CKD due to cardiac dysfunction vs. longstanding hypertension vs. prior AKIs
- UA with trace LEs and bacteria but otherwise bland. KUS with renal disease otherwise unremarkable
- continue to trend BMPs while on aggressive diuresis (80IV BID), will defer diuretic regimen to cards/pulm
The patient has a stable kidney function. I will have him follow up outpatient with me in 6-8 weeks post discharge.
Please plan to obtain repeat labs 1-2 weeks after discharge.
-
-
Date of Service: April 01, 2024
CC / HPI / ROS
-
Chief Complaint:
CKD
History of Present Illness:
HFpEF, on diuretics
Review of Systems:
feeling well today
improved breathing and good response to lasix
discussed dietary compliance
Labs
-
Labs:
WBC 10.7 10^3/uL (4.8-10.8) 04/01/24 07:25
RBC 5.19 10^6/uL (4.70-6.10) 04/01/24 07:25
Hgb 11.7 g/dL (13.0-18.0) L 04/01/24 07:25
Hct 41.7 % (39.0-52.0) 04/01/24 07:25
Plt Count 436 10^3/uL (130-400) H 04/01/24 07:25
Sodium 135 mmol/L (135-145) 04/01/24 07:25
Potassium 3.7 mmol/L (3.5-5.1) 04/01/24 07:25
Chloride 71 mmol/L (98-107) L 04/01/24 07:25
Carbon Dioxide 50 mmol/L (22-30) H 04/01/24 07:25
BUN 53 mg/dl (9-20) H 04/01/24 07:25
Creatinine 1.8 mg/dL (0.7-1.3) H 04/01/24 07:25
eGFR 39.75 04/01/24 07:25
Glucose 107 mg/dl (70-99) H 04/01/24 07:25
Calcium 8.7 mg/dl (8.4-10.2) 04/01/24 07:25
Gps-Q-Sgwxjnhnnwp Pept 370 pg/ml 03/31/24 11:22
Albumin 3.4 g/dl (3.5-5.0) L 03/31/24 11:22
Physical Exam
-
Vital Signs:
Vital Signs
Temp Pulse Resp BP Pulse Ox
98.2 F 80 18 118/67 93
04/01/24 11:30 04/01/24 11:30 04/01/24 11:30 04/01/24 11:30 04/01/24 11:30
Cardiovascular:: Regular rate and rhythm
Respiratory:: Bilateral: Coarse
Lung Excursion:: Normal
Abdomen:: Nontender and Soft
Bowel Sounds:: Normal
Extremity Edema:: +3: Bilateral:
Brown Catheter: No
[2024-04-01] MEDS: ZAROXOLYN 2.5 MG PO (15:52)
--- NOTE | 2024-04-01 16:24 | CM ---
Patient seen bedside.
IA completed.
patient lives with spouse in a 1 story home with no steps.
Patient independent prior to admission without assistive devices.
Patient does have oxygen, portable tanks and concentrator.
patient has a nebulizer.
Patient drives.
Patient has had [facility] in the past and been to [facility].
Patient denies and declines need for VN and skilled rehab.
Patients spouse will transport home.
PCP: Jaylene
Pharmacy: [facility]
Plan: home no needs.
[2024-04-01 17:46] LABS: B.E. >30.0 mmol/L; O2 Saturation % 91.5 % (94-98); PO2 60 mmHg (83-108); pH 7.55 (7.35-7.45)
--- NOTE | 2024-04-01 17:47 | RESPNOTE ---
Vest ordered- patient offered vest and vest declined. No machine left in room
[2024-04-01 17:55] LABS: HCO3 > 60.0 mmol/L (21-28); PCO2 76 mmHg (35-48)
--- NOTE | 2024-04-01 20:15 | PTCARENOTE ---
pt only tolerated bipap for < 30 min. rt aware and regional guide aware. pt at that time refusing to move to a higher level of care. regional guide, hospitilist and nursing excavating supervisor all made aware. Nursing excavating supervisor and RN at bedside. pt refusing to move units. no
obvious change in assessment at this time. respirations nonlabored, orientation remains at baseline.
--- NOTE | 2024-04-01 21:14 | PTCARENOTE ---
Spoke to both patient and his , Sayda Tabor about the patient's order to be upgraded to IMU. At this time both the patient and his are refusing to go to a higher level of care and is refusing to wear BiPAP. Explained to the patient his right
to refuse, what IMU level of care would provide, and the risks of remaining on a floor that does not match his ordered level of care. She is aware that the concern is her potentially deteriorating on a telemetry floor. stated 'I will
sign a waiver'. They are very upset about the care and wish they never agreed to the ABG, as she states her is improved. I again assured them that we have the patient's best interest in mind with the ordered treatments and plan of care. They
understand the risks of remaining on a telemetry floor and not wearing BiPAP at this time. RN caring for the patient aware and witnessed the conversation.
--- NOTE | 2024-04-01 22:00 | RESPNOTE ---
Discussion with the PT and family/ at the bedside about ABG results and new BIPAP order. PT is to be placed on the BIPAP 12/ with 4L at this time and be upgraded to ICU status due to need for BIPAP. Discussed at length with this PT the need
to comply with BIPAP therapy and expected outcomes. PT initially agreed and was placed on the BIPAP, but pulled it off shortly thereafter and refused to comply with BIPAP therapy even after the need was explained. PT was placed back on his 4 L
nasal cannula and the BIPAP was placed on STBY at the bedside. A follow-up ABG was ordered thereafter, and the PT refused the blood draw as well. Refusal was charted and ordering FLORIST DESIGNER was notified.
[2024-04-01] MEDS: NEURONTIN 300 MG PO (23:33)
--- NOTE | 2024-04-02 00:06 | W.PN.UPDATE ---
Update Note
Progress Note Update
Discussion with patient regarding refusal of BiPap and transfer to higher level of care. Patient was AAOx3, able to describe current medical condition and what is going on. He states, 'I am not dying and I do not want to do anything but get up and
sit in chair.' Reviewed risks of not following plan of care correctly and possible negative outcomes. Patient stated he just wants to sit in chair. Reviewed code status with patient, as nursing mentioned he told them he did not want to be intubated.
Patient informed this provider that if he is 'dying' that he wants all interventions including intubation but does not want intubation now. Reviewed that he is not at a point of needing intubation but his labs earlier with high CO2 retention could
lead that way. He verbalized understanding. Despite extensive education patient continues to refuse treatment, testing and transfer to higher level of care. Nursing sign hanger supervisor and Sales Program Coordinator updated on situation.
[2024-04-02 03:41] VITALS: BP 136/71
--- NOTE | 2024-04-02 03:53 | DOWNTIME ---
There was a [employer] Client Seam Presser Downtime on 04/01/2024 from 0100 to 04/02/2024 at 0300. Downtime documentation of patient's care, including medication administrations, has been reconciled in the electronic record per guidelines. Refer to the
patient's paper chart under the miscellaneous tab to see printed paper medication records and downtime forms.
[2024-04-02 05:34] VITALS: BMI 37.6
[2024-04-02 07:00] VITALS: BP 136/74
[2024-04-02] MEDS: VENTOLIN NEBULES 2.5 MG INH ×4 (07:47→20:47)
[2024-04-02] MEDS: PULMICORT 0.5 MG INH ×2 (07:47→20:47)
[2024-04-02] MEDS: SPIRIVA RESPIMAT 2.5 MCG 2 PUFF INH (07:47)
[2024-04-02 08:30] LABS: Blood Urea Nitrogen 61 mg/dl (9-20); Chloride 70 mmol/L (98-107); Estimated Creatinine Clearance 43 ml/min; Glucose 128 mg/dl (70-99); Potassium 3.5 mmol/L (3.5-5.1); Sodium 135 mmol/L (135-145); eGFR 37.25
[2024-04-02] MEDS: LASIX 80 MG IV ×2 (08:30→16:07)
[2024-04-02] MEDS: ASPIR LOW (ENTERIC COATED) 81 MG PO (08:30)
[2024-04-02] MEDS: IMDUR (EXTENDED RELEASE) 30 MG PO (08:30)
[2024-04-02] MEDS: KCL 20 MEQ PO ×2 (08:30→21:00)
[2024-04-02] MEDS: PROTONIX 40 MG PO (08:30)
[2024-04-02] MEDS: WELLBUTRIN XL (24 hour extended release) 150 MG PO (08:30)
[2024-04-02] MEDS: HEPARIN 5000 UNITS SC ×2 (08:31→16:07)
[2024-04-02 08:40] LABS: Carbon Dioxide 51 mmol/L (22-30)
[2024-04-02] MEDS: ZITHROMAX 250 MG PO (08:47)
--- NOTE | 2024-04-02 09:30 | W.PN.HOSP.TC ---
Today's Communication/Plan
-
.
Will plan to dc in next day or two if pt continues to feel better. He will need to follow his pulmonary doctor sooner than later, will reach out to his OP doctors.
Assessment / Plan
Assessment / Plan
Physical Exam
General: Comfortable and Conversant, obese.
HEENT: Anicteric, Moist mucous membranes and Oxygen (Nasal Cannula)
Respiratory: positive for crackles and limited. Non Labored Respirations
Cardiac: S1/S2
GI: Soft, Non Tender and Other (Protuberant)
: No Brown, + scrotal swelling.
Musculoskeletal: No Clubbing, No Cyanosis. Less edema in both legs
Skin: Warm and Dry; No Rash
Neuro: Awake, Alert, Oriented and Nonfocal/grossly intact
Psych: Calm
# Goal of care
Patient is competent to make decisions. He is AAOX3. Patient wants to continue with diuretic treatment, current nebulizer, agrees to do BMP but not ABG ( painful per patient). He is aware that Bipap might help but does not want to try it yet.
is aware.
Patient remains at risk of sudden worsening including cardio-pulmonary arrest. Will continue to follow
His PCO2 is high on ABG and from looking at previous ABG 2019,2021, he seems to have high CO2 in blood for a while.
His Primary epic ambulatory specialists also encouraged him to use Bipap/Cpap.
#Acute on chronic hypoxic and hypercapnic respiratory failure
History of obstructive sleep apnea/pulmonary hypertension/acute on chronic heart failure with preserved ( diastolic)ejection fraction/weight gain-obesity/noncompliant to his CPAP although he reported he was trying to use it more than before (patient
reported intolerance to CPAP)
Decompensation secondary to worsening all the above
He reports feeling better than home. He verbalized understanding to our recommendations but he feels he is better and does not want Bipap or to repeat ABG
He is not confused, he AAOX3.
Continue with oxygen therapy but avoid CO2 retention. Admission Pro-BNP 370.
No indication for antibiotics.
Weight is unchanged.
Monitor renal function while on aggressive diuretic therapy. Creatinine at 1.[address] Gaona felt it was within normal range for the pt.
Counseling to lose weight and use medications/use of CPAP
Continue inhalation therapy
CT of the chest showed Complete right middle lobe collapse, new from prior. Difficult to exclude a central obstructing lesion. Consider nonemergent bronchoscopy. d/w pulmonary, recommended Bipap but pt refused.
Blood culture x 2 NGTD
Primary epic ambulatory specialists with [place] [place] [facility]/Dr. Shah. He saw Dr. Mars in the past.
Recent echo in April 2023 showed LVEF 75%/trace MR/mild to moderate TR with elevated pulmonary artery pressure at 44 mmHg. Repeat echo 04/01/2024 showed LV EF 65 to 70%, reduced right ventricular systolic function, mild to moderate TR, estimated
pulmonary arterial pressure of 45 - 50 mmHg.
Primary market research lead Dr. Bill
Might need to repeat right heart catheterization, defer decision to response to diuretic treatment and further evaluation
Appreciate pulmonary and cardiology input
# Obesity
# Obstructive sleep apnea
Non compliant to C pap, intolerant
# Chronic kidney disease stage IIIb
No renal colic or dysuria. No hematuria. Monitor renal function while on diuretics
Renal US No hydronephrosis on either side. Renal Cortical atrophy suggestive of medical renal disease.
# Primary hypertension
AM BP today 136/74
# History of orthostatic hypotension
# History of right subclavian DVT after dialysis catheter placement 2018
# History of VT status post single-chamber [employer] ICD in 2018
# History of polycythemia vera. Hemoglobin at 11
# DVT prophylaxis
Total time spent to see the patient, examine the patient on the floor, review data and lab results, discuss treatment plan with patient, and nursing staff around 55 minutes
Anticipated Discharge: 24 - 48 hours
Subjective/Interval History
-
Date of Service: April 02, 2024
He reports feeling better, he denies worsening sob
Objective Data
-
Labs:
Laboratory Results
04/02/24 04/02/24
00:02 07:25
HCO3 Cancelled
Sodium 135
Potassium 3.5
Chloride 70 L
Carbon Dioxide 51 H
BUN 61 H
Creatinine 1.9 H
Glucose 128 H
Calcium 9.0
Vital Signs:
Vital Signs
Temp Pulse Resp BP Pulse Ox
97.7 F 68 18 136/74 94
04/02/24 07:00 04/02/24 07:49 04/02/24 07:49 04/02/24 07:00 04/02/24 07:49
I&O
04/01/24 04/02/24 04/03/24
06:59 06:59 06:59
Intake Total 720 / 720 660 / 660
Output Total 600 / 600 1700 / 1700
Balance 120 / 120 -1040 / -1040
[2024-04-02 11:00] VITALS: BP 122/64
--- NOTE | 2024-04-02 12:29 | W.PN.CARDCBS ---
Addendum entered and electronically signed by Pedro Duff MD 04/02/24 14:32:
I saw and examined the patient.
The Maintenance Apprentice's note was reviewed and I agree with the note.
Comment: Briefly, 69-year-old man past medical history of heart failure with preserved ejection fraction, CKD, COPD on chronic O2 who presented in decompensated heart failure thought to be related to dietary indiscretion
Still appears volume overloaded on exam although oxygen requirements are likely at his baseline
Would continue IV Lasix, hold off on additional metolazone today
Monitor creatinine and daily weights
Replete electrolytes as needed
Original Note:
Today's Communication / Plan
-
Continue IV diuresis
Replete electrolytes
Continue to monitor on telemetry
Impression / Plan
-
PCP: Dr. Mariee
Primary Light Industrial Supervisor: Dr. Bill
Impression:
Acute on chronic HFpEF
Dietary indiscretion
CKD 3, baseline appears to be Cre 1.4-1.7
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
history of VT s/p single chamber Medtronic ICD 05/15/18 as secondary prevention for syncope, VT
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
Obstructive sleep apnea, noncompliant w/ CPAP
Non-obstructive CAD by cath 05/13/18
COPD/obstructive lung disease, oxygen dependent 3 lpm at rest, followed by [facility]
Pulmonary hypertension
Hypertension
Hyperlipidemia
h/o orthostatic hypotension
Osteoarthritis
h/o R subclavian vein DVT after dialysis catheter placement 2018.
h/o calf DVT (?left)
h/o traumatic amputation of R thumb
ECHO 03/28/22: Technically difficult study, Definity used, EF 70%, moderate concentric LVH, hypokinetic RV free wall, PAP 45 to 50 mmHg
ECHO 05/02/23: EF greater than 75%, posterior MAC, thickened mitral valve leaflets, trace MR, mild to moderate TR, PAP 44 mmHg, dilated hypokinetic RV, no significant change compared to prior
Echo 04/01/24: Study pending
Plan:
-Weight is up 4 lbs overnight. Unclear validity of scale. Still looks volume mildly overloaded. Cont Lasix 80 mg IV BID. Got a dose of metolazone 2.5 mg with 04/01/24 afternoon dose of Lasix. Would hold on additional metolazone given bump in
creatinine to 1.9 (Patient was taking Lasix 80 mg PO BID and metolazone 2.5 mg daily prior to admission).
-Patient had stopped responding to metolazone in addition to his Lasix 80 mg PO BID prior to admission and of note he previously did not respond to Furoscix as an outpatient.
-Replete K+ 3.5
-EF was preserved by last echo 05/02/23
-Patient with a h/o hypotension and previously required midodrine. Not chronically on BB or HARI/ARB/ARNI.
-Patient with known CKD 3 and nephrology has been consulted. Renal function bumped overnight to 1.9.
-Renal ultrasound 04/01/2024 without hydronephrosis. Renal cortical atrophy suggestive of medical renal disease. Negative ultrasound of bladder.
-ECG reviewed by me with SR. Now having PVCs. Continue to monitor on tele
HPI: Patient came to [facility] today with increased SOB and edema and is now being admitted with acute HF so cardiology has been consulted. Patient has a history of VT s/p ICD, diastolic CHF and pancreatitis. He had gallstone pancreatitis leading to
multisystem organ failure and VDRF 02/2018. He was diagnosed with pancreatic pseudocyst and necrotizing pancreatitis as well. He was treated at [facility]. Then he was admitted to 04/2018 and while here had sustained VT so he had a single chamber
Medtronic ICD placed. Patient has had 2-3 admissions a year for acute HF since 2018, last admission was 04/2023. Since then patient has been doing well taking his outpatient dose of Lasix 80 mg PO BID plus metolazone 2.5 mg daily PRN weight gain.
Patient was seen in the cardiology office for weight gain and acute HF last year and tried to use Furoscix outpatient SQ Lasix device without success. Patient and say that edema started after eating Easter ham about a month ago. He then had ham
leftovers for a week. Then he was eating [employer] based salads with crackers and other times eating pretzels. Patient had weight gain and increased edema that his was able to get under control with metolazone x1, but then he continued to eat
crackers and pretzels. His has given him metolazone daily for the last week without diuresis.
Progress Note - Light Industrial Supervisor
Subjective
Date of Service: April 02, 2024
Patient seen and examined. Patient sitting in chair. Reports that he is feeling less short of breath and feels like his edema is improving.
Objective
Labs:
04/01/24 07:25
04/02/24 07:25
Labs
Hgb 11.7 g/dL (13.0-18.0) L 04/01/24 07:25
Hct 41.7 % (39.0-52.0) 04/01/24 07:25
Plt Count 436 10^3/uL (130-400) H 04/01/24 07:25
Sodium 135 mmol/L (135-145) 04/02/24 07:25
Potassium 3.5 mmol/L (3.5-5.1) 04/02/24 07:25
BUN 61 mg/dl (9-20) H 04/02/24 07:25
Creatinine 1.9 mg/dL (0.7-1.3) H 04/02/24 07:25
Glucose 128 mg/dl (70-99) H 04/02/24 07:25
Vital Signs and I&O:
Vital Signs
Temp Pulse Resp BP Pulse Ox
98 F 76 18 122/64 93
04/02/24 11:00 04/02/24 11:18 04/02/24 11:18 04/02/24 11:00 04/02/24 11:18
Vital Signs
Temp Pulse Resp BP Pulse Ox
98 F 76 18 122/64 93
04/02/24 11:00 04/02/24 11:18 04/02/24 11:18 04/02/24 11:00 04/02/24 11:18
Intake & Output
03/31/24 04/01/24 04/02/24 04/03/24
06:59 06:59 06:59 06:59
Intake Total 720 / 720 660 / 660
Output Total 600 / 600 1700 / 1700
Balance 120 / 120 -1040 / -1040
Physical Exam
Physical Exam
GEN: No distress, awake, Ox3
HEENT: supple, anicteric, mmm
LUNGS: Diminished breath sounds bilaterally with scattered crackles CTA, no wheezes/rales wearing oxygen, 3 L
CV: Reg, S1/S2, 1/6 syst LSB, no murmur
ABD: soft, BS+, NT/ND
EXT: +1 edema right lower extremity, +2 edema left lower extremity, no clubbing or cyanosis
NEURO: Gross non-focal
SKIN: No rash, warm, dry, pink
--- NOTE | 2024-04-02 12:46 | W.PN.PUL3 ---
Today's Communication / Plan
-
Refused BIPAP overnight, ABG showing chronic severe CO2 retention
He is on baseline O2 requirements
Can repeat CXR today, RML collapse would be high risk to treat via invasive means
Encourage airway clearance and ambulation/IS/acapella/vest/PAP therapy
Ongoing IV diuresis per cards team
Would be reasonable to have GOC discussions as patient noncompliant with treatment
Assessment
-
69 year old male with a past medical history of COPD, pulmonary hypertension, CHF, V-Tach with defibrillator who presents today for worsening shortness of breathe and lower extremity swelling x 3 weeks. He has not been weighing himself regularly and
states his last weight he took was last Sunday at 256 lbs. Per at bedside, he has been stable at 240lbs last year. He is chronically on 3L O2 which he states he has been wearing daily and at night. He states his pulse ox at home has been
stable in the low 90's. He has been taking 80 mg Lasix BID and metolazone daily for the past 7-8 days without any relief of the LE edema. He also complains of increase in fatigue and need for sleep for the past week. notes that he has not been
compliant with cardiac diet/low salt.
AECHF
RML collapse/atelectasis
Acute hypercarbic respiratory failure, suspected
History of noncompliance
Conditions present prior admission:
COVID pneumonia, adm Aug, received dexam/remdesivir
COPD, end stage, on home oxygen / at 3L of supplemental oxygen, chronic hypoxemia/hypercarbia, chronic elevation of Hgb
Dr. Mars
On albuterol HFA, arformoterol, budesonide, revefenacin (yupelri)
PFT 02/22/2021: FEV1 1.07 L - 35%. FVC 2.19 L - 52%-severe airflow obstruction.
RV dysfunction on TTE 03-28-22 as c/w April 2021 (but trace TR)
ABG 04/04/22: pH 7.31/109/34/54.9
HFpEF ([facility] 03-30-22)
Hypertension
Obstructive sleep apnea-AHI 52 events per hour, marginal compliance to CPAP
Chronic kidney disease, temporary placement HD catheter 03-14-18 for [place]
Morbid obesity
Ventricular tachycardia status post ICD
Coronary artery disease
Hyperlipidemia
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
Former smoker
Pulmonary hypertension: Likely post capillary/obstructive sleep apnea
New RLE DVT 11-23-21 (negative RLE doppler 11-03-21): ER visit 11-23-21 (no PE on CTA), d/c home on apixaban. Denies prior h/o DVT
Plan
Patient has history of chronic oxygen use, currently 95% on 3L NC
He is on his baseline use of O2
Prior history of lung disease is noted including:
He has history of severe GUCCI and noncompliant with CPAP, last ABG 2 years ago showing Co2 levels are >100.
Had been seeing Dr Mars in past, but notes he now goes to [facility]. She was told by someone there that his CO2 levels were due to excessive oxygen administration.
He has yet to have a follow up sleep study following weight loss per .
COPD, last PFT 2020 with severe obstruction
Suspect patient has underlying acute retention of CO2, causing possible daytime sleepiness
Repeat AB.55 - 76 prior ABG 7.31 - 109
Has noncompliance wtih CPAP
very argumentative about this, did not receive BIPAP from [facility], patient does not want to use this
She felt O2 was the cause of his issues
AHI 50 on last sleep study
Retrial of BIPAP last night, he refused again
He is at high risk of ventilatory failure/vent dependancy, this was communicated to patient and
CXR obtained indicating RML collapse
New finding, CT confirmed
I suspect this is from OHS, but if not improved on subsequent imaging may need advanced procedure which would be high risk
Trial BIPAP, repeat imaging in next 24-48 hours
Airway clearance/nebs/vest needed
Repeat CXR
LE swelling and SOB noted, CXR reviewed without significant edema
proBNP not significantly elevated
Prior ECHO reviewed, stable function
Diuresis per cards team
Weight loss measures recommended
Obesity contributing to respiratory symptoms
Outpatient pulmonary FU at [facility] post discharge
GOC discussions would be warranted
Diagnostic Data
CXR 05-01-23 c/w 11-23-21. Baseline poor quality film with limited lung span but no gross infiltrates, L chest AICD. Current film portable with no infiltrates
CXR 03/31/24- . Right middle lobe opacity, which may represent pneumonia or atelectasis.
2. No significant pleural effusion on either side.
CT Chest 03/31/24- . Complete right middle lobe collapse, new from prior. Difficult to exclude a central obstructing lesion. Consider nonemergent bronchoscopy.
Chest CTA 11-23-21, c/w CT 03-09-18 IMPRESSION: No evidence of pulmonary embolus. Mild lower thoracic spine anterior wedge compression fracture. Stable parenchymal scarring. Stable
LUBA doppler 05-02-23 IMPRESSION:
1. No sonographic evidence for acute lower extremity venous thrombosis.
2. Chronic nonocclusive deep venous thrombosis in the right femoral vein.
LUBA doppler 11-23-21, c/w 11-03-21 IMPRESSION: Findings suggesting acute DVT of the right lower extremity from the mid thigh to and including the right knee. New.
TTE 05-02-23 CONCLUSIONS: Normal left ventricular wall thickness. Normal left ventricular systolic function. Normal left ventricular chamber size. Left ventricular ejection fraction is greater than 75% by Cottrell's method. Normal diastolic
function. Mitral valve opens normally. Posterior mitral annular calcification. Thickened mitral valve leaflets. Trace mitral regurgitation is seen. Trileaflet aortic valve. Thickened calcified aortic valve with adequate leaflet excursion. No
aortic regurgitation is seen. Tricuspid valve opens normally. Mild to moderate tricuspid regurgitation. Estimated pulmonary artery pressure of 44 mmHg, assuming a right atrial pressure of 3 mmHg. Dilated hypokinetic right ventricle. Since
echocardiogram March 2022, there is no significant change.
TTE 03-28-22 CONCLUSIONS: Technically difficult study - Definity used. Normal left ventricular chamber size. Normal left ventricular systolic function. Left ventricular ejection fraction is 70% by Cottrell's Method of Disc. Moderate concentric left
ventricular hypertrophy. Top normal right ventricular size - hypokinetic right ventricular free wall. ICD wire seen in right ventricle. No mitral regurgitation is seen. Structurally normal aortic valve without significant stenosis or regurgitation.
Trace tricuspid regurgitation. Estimated pulmonary artery pressure of 45-50 mmHg assuming a right atrial pressure of 3 mmHg. Structurally normal pulmonic valve without significant stenosis or regurgitation. Normal pericardium and pleura without
evidence of effusion. The aortic root is normal in caliber. The IVC is of normal size and demonstrates normal respiratory variation. Since echocardiogram from 04/2021 the right ventricle is now hypokinetic (mild to moderate hypokinesis)
[facility] 03-30-22
Hemodynamics (mmHg):
RA (m) : 18
RV (s/d) : 78/14
PA (s/d, m) : 75/28, 43
PCWP (m) : 34
Cardiac Output : 6.9 L/min
Cardiac Index : 2.9 L/min/m-2
Pulmonary vascular resistance: 104 [id number]
Systemic vascular resistance: 1123 [id number]
CONCLUSION:
1. Group 2 pulmonary hypertension with elevated left ventricular filling pressures and normal pulmonary artery pressures. No significant transpulmonary gradient
PFT's: 02/22/2021, FEV1 1.07 (35%), FVC 2.19 (52%). Severe obstruction.
Subjective Data
-
Date of Service:
Date of Service: April 02, 2024
Chief Complaint: Pulmonary Follow Up
Subjective:
sleeping in chair, difficult to arouse
refused bipap overnight
Objective Data
Data Reviewed
Vital Signs / I&O / Oxygen:
Vital Signs
Temp Pulse Resp BP Pulse Ox
98 F 76 18 122/64 93
04/02/24 11:00 04/02/24 11:18 04/02/24 11:18 04/02/24 11:00 04/02/24 11:18
Intake and Output
04/01/24 04/02/24 04/03/24
06:59 06:59 06:59
Intake Total 720 / 720 660 / 660
Output Total 600 / 600 1700 / 1700
Balance 120 / 120 -1040 / -1040
SaO2 93
Nasal Cannula flow liters per 3
minute
Physical Exam
General: Other (NAD) and Other (sleeping in chair)
HEENT: Normocephalic, Anicteric, Moist Mucous Membranes and Other (edentulous)
Cardiovascular: S1-S2, Regular Rhythm and Peripheral Edema
Respiratory: Crackles, Non-Labored Respirations and Other (decreased BS overall)
GI: Soft, Distended (obese) and Non Tender
Neurology: Other (sleeping in chair, difficult to arouse)
Skin: Warm and Dry
Labs/Micro/Reports
Lab Data
04/01/24 07:25
04/02/24 07:25
Laboratory Results
04/01/24 04/02/24
17:35 00:02
pH 7.55 H Cancelled
pCO2 76 H* Cancelled
pO2 60 L Cancelled
HCO3 > 60.0 H* Cancelled
O2 Delivery Level Cancelled
Microbiology
03/31/24 15:31 Blood/Venous Blood Culture - Preliminary
No Growth in 24 hours- Final report to follow
03/31/24 15:31 Blood/Venous Blood Culture - Preliminary
No Growth in 24 hours- Final report to follow
[2024-04-02 16:00] VITALS: BP 120/66
[2024-04-02 19:03] VITALS: BP 132/68
--- NOTE | 2024-04-02 19:30 | PTCARENOTE ---
Patient and continue to refuse higher level of care to IMU as patient is retaining CO2 and is recommended to be on continuous Bipap. visibly frustrated at bedside stating that she 'can't believe this hospital and she regrets bringing pt
her.' Need for higher level of care explained to and pt. but stated her frustration with hospital doctors and staff and said 'she wants to know why we are all fixated on his CO2, he's here for the extra fluid and that is that.' This nurse
explained the progression of COPD/ CO2 retention and again reverted back to the fact that pt. is only here for his 'extra fluid.' Second floor nurse and nursing department chairperson witnessed conversation. At this time, pt/ wishes are to remain on the
telemetry floor on 3L NC because 'that is all that he needs right now.' Will continue to monitor.
[2024-04-02] MEDS: NEURONTIN 300 MG PO (21:03)
[2024-04-02 22:48] VITALS: BP 128/68
[2024-04-03] VITALS (11 sets, daily range): BP systolic 103–136; BP diastolic 60–96; PULSE 2–76; BMI 37.6
[2024-04-03] MEDS: HEPARIN 5000 UNITS SC ×3 (00:16→16:29)
[2024-04-03] MEDS: PULMICORT 0.5 MG INH ×2 (07:43→19:46)
[2024-04-03] MEDS: SPIRIVA RESPIMAT 2.5 MCG 2 PUFF INH (07:43)
[2024-04-03] MEDS: VENTOLIN NEBULES 2.5 MG INH ×3 (07:43→19:46)
[2024-04-03 09:01] LABS: Blood Urea Nitrogen 57 mg/dl (9-20); Calcium 8.6 mg/dl (8.4-10.2); Chloride 71 mmol/L (98-107); Estimated Creatinine Clearance 43 ml/min; Glucose 120 mg/dl (70-99); Potassium 3.4 mmol/L (3.5-5.1); Sodium 136 mmol/L (135-145); eGFR 37.25
[2024-04-03 09:17] LABS: Carbon Dioxide 54 mmol/L (22-30)
--- NOTE | 2024-04-03 09:33 | W.PN.PUL3 ---
Today's Communication / Plan
-
Poor mentation noted, transferred to IMU with BIPAP in place
ABG repeat pending
Persistent low lung volumes from hypoventilation
He is high risk for resp failure, as has been previously discussed with family, he still refuses BIPAP
GOC discussions would certainly be warranted here
Assessment
-
69 year old male with a past medical history of COPD, pulmonary hypertension, CHF, V-Tach with defibrillator who presents today for worsening shortness of breathe and lower extremity swelling x 3 weeks. He has not been weighing himself regularly and
states his last weight he took was last Sunday at 256 lbs. Per at bedside, he has been stable at 240lbs last year. He is chronically on 3L O2 which he states he has been wearing daily and at night. He states his pulse ox at home has been
stable in the low 90's. He has been taking 80 mg Lasix BID and metolazone daily for the past 7-8 days without any relief of the LE edema. He also complains of increase in fatigue and need for sleep for the past week. notes that he has not been
compliant with cardiac diet/low salt.
AECHF
RML collapse/atelectasis
Acute hypercarbic respiratory failure, suspected
History of noncompliance
Conditions present prior admission:
COVID pneumonia, adm Aug, received dexam/remdesivir
COPD, end stage, on home oxygen / at 3L of supplemental oxygen, chronic hypoxemia/hypercarbia, chronic elevation of Hgb
Dr. Mars
On albuterol HFA, arformoterol, budesonide, revefenacin (yupelri)
PFT 02/22/2021: FEV1 1.07 L - 35%. FVC 2.19 L - 52%-severe airflow obstruction.
RV dysfunction on TTE 03-28-22 as c/w April 2021 (but trace TR)
ABG 04/04/22: pH 7.31/109/34/54.9
HFpEF ([facility] 03-30-22)
Hypertension
Obstructive sleep apnea-AHI 52 events per hour, marginal compliance to CPAP
Chronic kidney disease, temporary placement HD catheter 03-14-18 for [place]
Morbid obesity
Ventricular tachycardia status post ICD
Coronary artery disease
Hyperlipidemia
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
Former smoker
Pulmonary hypertension: Likely post capillary/obstructive sleep apnea
New RLE DVT 11-23-21 (negative RLE doppler 11-03-21): ER visit 11-23-21 (no PE on CTA), d/c home on apixaban. Denies prior h/o DVT
Plan
Patient has history of chronic oxygen use, currently 95% on 3L NC
He is on his baseline use of O2
Prior history of lung disease is noted including:
He has history of severe GUCCI and noncompliant with CPAP, last ABG 2 years ago showing Co2 levels are >100.
Had been seeing Dr Mars in past, but notes he now goes to [facility]. She was told by someone there that his CO2 levels were due to excessive oxygen administration.
He has yet to have a follow up sleep study following weight loss per .
COPD, last PFT 2020 with severe obstruction
Suspect patient has underlying acute retention of CO2, causing possible daytime sleepiness
Repeat AB.55 - 76 prior ABG 7.31 - 109
Has noncompliance wtih CPAP
very argumentative about this, did not receive BIPAP from [place], patient does not want to use this
She felt O2 was the cause of his issues
AHI 50 on last sleep study
Retrial of BIPAP last night, he refused again
He is at high risk of ventilatory failure/vent dependancy, this was communicated to patient and
Repeat ABG pending given events
Now on BIPAP
CXR obtained indicating RML collapse
New finding, CT confirmed
I suspect this is from OHS, but if not improved on subsequent imaging may need advanced procedure which would be high risk
Trial BIPAP, repeat imaging in next 24-48 hours
Airway clearance/nebs/vest needed
Repeat CXR--Persistent right middle lobe atelectasis
LE swelling and SOB noted, CXR reviewed without significant edema
proBNP not significantly elevated
Prior ECHO reviewed, stable function
Diuresis per cards team
Weight loss measures recommended
Obesity contributing to respiratory symptoms
Outpatient pulmonary FU at [facility] post discharge
GOC discussions would be warranted
Diagnostic Data
CXR 04/03/24- Persistent right middle lobe atelectasis.
CXR 05-01-23 c/w 11-23-21. Baseline poor quality film with limited lung span but no gross infiltrates, L chest AICD. Current film portable with no infiltrates
CXR 03/31/24- 1. Right middle lobe opacity, which may represent pneumonia or atelectasis.
2. No significant pleural effusion on either side.
CT Chest 03/31/24- 1. Complete right middle lobe collapse, new from prior. Difficult to exclude a central obstructing lesion. Consider nonemergent bronchoscopy.
Chest CTA 11-23-21, c/w CT 03-09-18 IMPRESSION: No evidence of pulmonary embolus. Mild lower thoracic spine anterior wedge compression fracture. Stable parenchymal scarring. Stable
LUBA doppler 05-02-23 IMPRESSION:
1. No sonographic evidence for acute lower extremity venous thrombosis.
2. Chronic nonocclusive deep venous thrombosis in the right femoral vein.
LUBA doppler 11-23-21, c/w 11-03-21 IMPRESSION: Findings suggesting acute DVT of the right lower extremity from the mid thigh to and including the right knee. New.
TTE 05-02-23 CONCLUSIONS: Normal left ventricular wall thickness. Normal left ventricular systolic function. Normal left ventricular chamber size. Left ventricular ejection fraction is greater than 75% by Cottrell's method. Normal diastolic
function. Mitral valve opens normally. Posterior mitral annular calcification. Thickened mitral valve leaflets. Trace mitral regurgitation is seen. Trileaflet aortic valve. Thickened calcified aortic valve with adequate leaflet excursion. No
aortic regurgitation is seen. Tricuspid valve opens normally. Mild to moderate tricuspid regurgitation. Estimated pulmonary artery pressure of 44 mmHg, assuming a right atrial pressure of 3 mmHg. Dilated hypokinetic right ventricle. Since
echocardiogram March 2022, there is no significant change.
TTE 03-28-22 CONCLUSIONS: Technically difficult study - Definity used. Normal left ventricular chamber size. Normal left ventricular systolic function. Left ventricular ejection fraction is 70% by Cottrell's Method of Disc. Moderate concentric left
ventricular hypertrophy. Top normal right ventricular size - hypokinetic right ventricular free wall. ICD wire seen in right ventricle. No mitral regurgitation is seen. Structurally normal aortic valve without significant stenosis or regurgitation.
Trace tricuspid regurgitation. Estimated pulmonary artery pressure of 45-50 mmHg assuming a right atrial pressure of 3 mmHg. Structurally normal pulmonic valve without significant stenosis or regurgitation. Normal pericardium and pleura without
evidence of effusion. The aortic root is normal in caliber. The IVC is of normal size and demonstrates normal respiratory variation. Since echocardiogram from 04/2021 the right ventricle is now hypokinetic (mild to moderate hypokinesis)
[facility] 03-30-22
Hemodynamics (mmHg):
RA (m) : 18
RV (s/d) : 78/14
PA (s/d, m) : 75/28, 43
PCWP (m) : 34
Cardiac Output : 6.9 L/min
Cardiac Index : 2.9 L/min/m-2
Pulmonary vascular resistance: 104 [id number]
Systemic vascular resistance: 1123 [id number]
CONCLUSION:
1. Group 2 pulmonary hypertension with elevated left ventricular filling pressures and normal pulmonary artery pressures. No significant transpulmonary gradient
PFT's: 02/22/2021, FEV1 1.07 (35%), FVC 2.19 (52%). Severe obstruction.
Subjective Data
-
Date of Service:
Date of Service: April 03, 2024
Chief Complaint: Pulmonary Follow Up
Subjective:
poor MS noted, transferred to IMU
placed on BIPAP, still lethargic
Objective Data
Data Reviewed
Vital Signs / I&O / Oxygen:
Vital Signs
Temp Pulse Resp BP Pulse Ox
98 F 66 18 116/60 94
04/03/24 07:30 04/03/24 07:47 04/03/24 07:47 04/03/24 07:30 04/03/24 07:47
Intake and Output
04/02/24 04/03/24 04/04/24
06:59 06:59 06:59
Intake Total 660 / 660 840 / 840
Output Total 1700 / 1700 825 / 825 750 / 750
Balance -1040 / -1040 -750 / -750
SaO2 94
Nasal Cannula flow liters per 3
minute
Physical Exam
General: Other (NAD) and Other (sleeping in chair)
HEENT: Normocephalic, Anicteric, Moist Mucous Membranes and Other (edentulous)
Cardiovascular: S1-S2, Regular Rhythm and Peripheral Edema
Respiratory: Crackles, Non-Labored Respirations and Other (decreased BS overall)
GI: Soft, Distended (obese) and Non Tender
Neurology: Lethargic and Other (sleeping in chair, difficult to arouse)
Skin: Warm and Dry
Labs/Micro/Reports
Lab Data
04/01/24 07:25
04/03/24 08:04
Microbiology
03/31/24 15:31 Blood/Venous Blood Culture - Preliminary
No Growth in 48 hours- Final report to follow
03/31/24 15:31 Blood/Venous Blood Culture - Preliminary
No Growth in 48 hours- Final report to follow
[2024-04-03] MEDS: PROTONIX 40 MG PO (09:46)
[2024-04-03] MEDS: ASPIR LOW (ENTERIC COATED) 81 MG PO (09:47)
[2024-04-03] MEDS: LASIX 80 MG IV ×2 (09:47→16:29)
[2024-04-03] MEDS: KCL 20 MEQ PO ×2 (09:48→13:05)
[2024-04-03] MEDS: IMDUR (EXTENDED RELEASE) 30 MG PO (09:48)
[2024-04-03] MEDS: WELLBUTRIN XL (24 hour extended release) 150 MG PO (09:50)
--- NOTE | 2024-04-03 09:52 | W.PN.CARDCBS ---
Today's Communication / Plan
-
Dose of metolazone with afternoon Lasix
Replete potassium
Impression / Plan
-
PCP: Dr. Mariee
Primary Police Clerk: Dr. Bill
Impression:
Acute on chronic HFpEF
Dietary indiscretion
CKD 3, baseline appears to be Cre 1.4-1.7
h/o Pancreatic pseudocyst and necrotizing pancreatitis due to gallstone with prolonged hospitalization for multisystem organ failure, vent-dependent respiratory failure at [facility] on 2018
history of VT s/p single chamber Medtronic ICD 05/15/18 as secondary prevention for syncope, VT
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
Obstructive sleep apnea, noncompliant w/ CPAP
Non-obstructive CAD by cath 05/13/18
COPD/obstructive lung disease, oxygen dependent 3 lpm at rest, followed by [facility]
Pulmonary hypertension
Hypertension
Hyperlipidemia
h/o orthostatic hypotension
Osteoarthritis
h/o R subclavian vein DVT after dialysis catheter placement 2018.
h/o calf DVT (?left)
h/o traumatic amputation of R thumb
ECHO 03/28/22: Technically difficult study, Definity used, EF 70%, moderate concentric LVH, hypokinetic RV free wall, PAP 45 to 50 mmHg
ECHO 05/02/23: EF greater than 75%, posterior MAC, thickened mitral valve leaflets, trace MR, mild to moderate TR, PAP 44 mmHg, dilated hypokinetic RV, no significant change compared to prior
Echo 04/01/24: Normal left ventricular chamber size. Mild concentric left ventricular hypertrophy. Hyperdynamic left ventricular systolic function. LV ejection fraction is 65-70% by Cottrell's method of discs. Reduced right ventricular systolic
function. Pacer wire seen in right ventricle. Posterior mitral annular calcification. No mitral regurgitation is seen. Mild to moderate tricuspid regurgitation.Estimated pulmonary artery pressure of 45-50 mmHg Assuming a right atrial pressure of 3
mmHg. Trace pulmonic regurgitation.Normal pericardium without effusion.The aortic root is of normal size. No significant change compared to 2022 echocardiogram
Plan:
Acute on chronic HFpEF
- Remains volume overloaded with unchanged weight last 24hours
- Cont Lasix 80 mg IV BID.
- Will give metolazone 2.5 mg with 04/03/24 afternoon dose of Lasix. (Patient was taking Lasix 80 mg PO BID and metolazone 2.5 mg daily prior to admission).
- Monitor I/O, weights
- Follow Cr
-Replete K > 3.4, Mag > 4
- EF was preserved by last echo 05/02/23
Severe GUCCI and noncompliant with CPAP with acute retention of CO2
-COPD, last PFT 2020 with severe obstruction
-Pulmonary consulted
- Has noncompliance wtih CPAP; Retrial of BIPAP last night, he refused again. Per pulmonary; He is at high risk of ventilatory failure/vent dependancy, this was communicated to patient and
CXR obtained indicating RML collapse, CT confirmed
-Obviously contributes to SOB
-NC O2 3 lmp
-Pulmonary management
-Encouraged BiPAP ise
-Airway clearance/nebs/vest needed
- Outpatient pulmonary FU at [facility] [place] post discharge
Patient with a h/o hypotension and previously required midodrine.
-Not chronically on BB or HARI/ARB/ARNI.
- Patient with known CKD 3 and nephrology has been consulted.
- Monitor Cr with duiresis
- Renal ultrasound 04/01/2024 without hydronephrosis. Renal cortical atrophy suggestive of medical renal disease. Negative ultrasound of bladder.
Will follow with you
HPI: Patient came to [facility] today with increased SOB and edema and is now being admitted with acute HF so cardiology has been consulted. Patient has a history of VT s/p ICD, diastolic CHF and pancreatitis. He had gallstone pancreatitis leading to
multisystem organ failure and VDRF 02/2018. He was diagnosed with pancreatic pseudocyst and necrotizing pancreatitis as well. He was treated at [facility]. Then he was admitted to 04/2018 and while here had sustained VT so he had a single chamber
Medtronic ICD placed. Patient has had 2-3 admissions a year for acute HF since 2018, last admission was 04/2023. Since then patient has been doing well taking his outpatient dose of Lasix 80 mg PO BID plus metolazone 2.5 mg daily PRN weight gain.
Patient was seen in the cardiology office for weight gain and acute HF last year and tried to use Furoscix outpatient SQ Lasix device without success. Patient and say that edema started after eating Easter ham about a month ago. He then had ham
leftovers for a week. Then he was eating [employer] salads with crackers and other times eating pretzels. Patient had weight gain and increased edema that his was able to get under control with metolazone x1, but then he continued to eat
crackers and pretzels. His has given him metolazone daily for the last week without diuresis.
Progress Note - Police Clerk
Subjective
Date of Service: April 03, 2024
Seen and examined. Sitting out of bed to chair prior to breakfast. No chest pain or pressure. Shortness of breath stable on 3 L nasal cannula. Chart/telemetry reviewed.
Objective
Labs:
04/01/24 07:25
04/03/24 08:04
Labs
Hgb 11.7 g/dL (13.0-18.0) L 04/01/24 07:25
Hct 41.7 % (39.0-52.0) 04/01/24 07:25
Plt Count 436 10^3/uL (130-400) H 04/01/24 07:25
Sodium 136 mmol/L (135-145) 04/03/24 08:04
Potassium 3.4 mmol/L (3.5-5.1) L 04/03/24 08:04
BUN 57 mg/dl (9-20) H 04/03/24 08:04
Creatinine 1.9 mg/dL (0.7-1.3) H 04/03/24 08:04
Glucose 120 mg/dl (70-99) H 04/03/24 08:04
Vital Signs and I&O:
Vital Signs
Temp Pulse Resp BP Pulse Ox
98 F 66 18 116/60 94
04/03/24 07:30 04/03/24 07:47 04/03/24 07:47 04/03/24 07:30 04/03/24 07:47
Vital Signs
Temp Pulse Resp BP Pulse Ox
98 F 66 18 116/60 94
04/03/24 07:30 04/03/24 07:47 04/03/24 07:47 04/03/24 07:30 04/03/24 07:47
Intake & Output
04/01/24 04/02/24 04/03/24 04/04/24
06:59 06:59 06:59 06:59
Intake Total 720 / 720 660 / 660 840 / 840
Output Total 600 / 600 1700 / 1700 825 / 825 750 / 750
Balance 120 / 120 -1040 / -1040 15 / 15 -750 / -750
Physical Exam
Physical Exam
GEN: No distress, awake, Ox3
HEENT: mmm
LUNGS: Diminished breath sounds bilaterally with scattered crackles CTA, no wheezes/rales wearing oxygen, 3 L
CV: Reg, S1/S2, 1/6 syst LSB, distant heart sounds. No murmur or rub.
ABD: soft, BS+, NT/ND
EXT: +1 edema right lower extremity, +2 edema left lower extremity. Prior leg injury/deformity noted.
--- NOTE | 2024-04-03 11:28 | W.PN.HOSP.TC ---
Addendum entered and electronically signed by Collette Meade MD 04/03/24 14:29:
Addendum
Altered mentation/ code stroke was called
Images studies of brain no acute findings
d/w neurologist
Placed on Bipap
Recheck ABG
IMU care
d/w family at bed side
End
Original Note:
Today's Communication/Plan
-
Possible dc in am
Assessment / Plan
Assessment / Plan
Physical Exam
General: Comfortable and Conversant, obese.
HEENT: Anicteric, Moist mucous membranes and Oxygen (Nasal Cannula)
Respiratory: positive for crackles and limited. Non Labored Respirations
Cardiac: S1/S2
GI: Soft, Non Tender and Other (Protuberant)
: No Brown, + scrotal swelling.
Musculoskeletal: No Clubbing, No Cyanosis. Less edema in both legs
Skin: Warm and Dry; No Rash
Neuro: Awake, Alert, Oriented and Nonfocal/grossly intact
Psych: Calm
# Goal of care
Patient is competent to make decisions. He is AAOX3. Patient wants to continue with diuretic treatment, current nebulizer, agrees to do BMP but not ABG ( painful per patient). He is aware that Bipap might help but does not want to try it yet.
is aware.
Patient is made aware of potential risks. He reports feeling better now with current treatment which is encouraging.
His PCO2 is high on ABG and from looking at previous ABG 2019,2021, he seems to have high CO2 in blood for a while.
His Primary cycle touring guide also encouraged him to use Bipap/Cpap.
#Acute on chronic hypoxic and hypercapnic respiratory failure
History of obstructive sleep apnea/pulmonary hypertension/acute on chronic heart failure with preserved ( diastolic)ejection fraction/weight gain-obesity/noncompliant to his CPAP although he reported he was trying to use it more than before (patient
reported intolerance to CPAP)
Decompensation secondary to worsening all the above
He reports feeling better than home. He verbalized understanding to our recommendations but he feels he is better and does not want Bipap or to repeat ABG
He is not confused, he AAOX3.
Continue with oxygen therapy but avoid CO2 retention. Admission Pro-BNP 370.
No indication for antibiotics.
Weight is unchanged.
Monitor renal function while on aggressive diuretic therapy. Creatinine at 1.9 today( same as yesterday). Distribution Operations Manager Dr Gaona felt it was within normal range for the pt. Bladder scan done : no retention.
Counseling to lose weight and use medications/use of CPAP
Continue inhalation therapy
CT of the chest showed Complete right middle lobe collapse, new from prior. Difficult to exclude a central obstructing lesion. Consider nonemergent bronchoscopy. d/w pulmonary, recommended Bipap but pt refused.
Blood culture x 2 NGTD
Primary cycle touring guide with [facility]/Dr. Shah. He saw Dr. Mars in the past.
Recent echo in April 2023 showed LVEF 75%/trace MR/mild to moderate TR with elevated pulmonary artery pressure at 44 mmHg. Repeat echo 04/01/2024 showed LV EF 65 to 70%, reduced right ventricular systolic function, mild to moderate TR, estimated
pulmonary arterial pressure of 45 - [address]addle bug [address] Bill
Might need to repeat right heart catheterization, defer decision to response to diuretic treatment and further evaluation
Appreciate pulmonary and cardiology input
# hypokalemia, replaced
# Obesity
# Obstructive sleep apnea
Non compliant to C pap, intolerant
# Chronic kidney disease stage IIIb
Creatinine 1.9 today
No renal colic or dysuria. No hematuria. Monitor renal function while on diuretics
Renal US No hydronephrosis on either side. Renal Cortical atrophy suggestive of medical renal disease.
# Primary hypertension
AM BP today 116/60
# History of orthostatic hypotension
# History of right subclavian DVT after dialysis catheter placement 2017
# History of VT status post single-chamber Medtronic ICD in 2018
# History of polycythemia vera. Hemoglobin at 11
# DVT prophylaxis
Total time spent to see the patient, examine the patient on the floor, review data and lab results, discuss treatment plan with patient, and nursing staff around 55 minutes
Anticipated Discharge: Within 24 hours
Subjective/Interval History
-
Date of Service: April 03, 2024
Objective Data
-
Labs:
Laboratory Results
04/03/24
08:04
Sodium 136
Potassium 3.4 L
Chloride 71 L
Carbon Dioxide 54 H
BUN 57 H
Creatinine 1.9 H
Glucose 120 H
Calcium 8.6
Vital Signs:
Vital Signs
Temp Pulse Resp BP Pulse Ox
98.4 F 87 16 103/67 92
04/03/24 11:07 04/03/24 11:07 04/03/24 11:07 04/03/24 11:07 04/03/24 11:07
I&O
04/02/24 04/03/24 04/04/24
06:59 06:59 06:59
Intake Total 660 / 660 840 / 840
Output Total 1700 / 1700 825 / 825 900 / 900
Balance -1040 / -1040 -900 / -900
[2024-04-03] MEDS: VENTOLIN NEBULES INH (11:42)
[2024-04-03 11:46] LABS: Glucose - Point of Care 209 mg/dl (70-99)
--- NOTE | 2024-04-03 12:02 | CM ---
Patient seen bedside with spouse.
Rapid called/CT scan ordered.
Plan: TBD
--- NOTE | 2024-04-03 12:07 | CON.NEURO4 ---
Consultation - Neurology 4
-
CONSULTING PHYSICIAN: Luz Elena Shanks
REFERRING PHYSICIAN: Hospitalist
DICTATED BY: Luz Elena Shanks
DATE/TIME OF REQUEST: 04/03/24
DATE/TIME OF CONSULTATION: 04/03/24
Reason for Consultation: Lethargy, slurred speech, weakness, stroke alert
History of Present Illness:
Patient is a 69 year old man with history of COPD, GUCCI, HFpEF, CKD, pulmonary hypertension who was admitted on 03/31 with dyspnea. pCO2 check yesterday on ABG was 76. Dyspnea was felt to be multifactorial, he did feel somewhat improved and had
declined pursuing BiPap therapy. Stroke alert was called as patient had had significant change noted by nursing, was last known normal at approximately 0830 AM this morning. He was noted to have new lethargy, dysarthria, and right leg drift.
His relates no history of stroke, TIA, or dementia or cognitive or memory impairments at baseline.
Past Medical History: CKD, HFpEF, COPD on home oxygen, obstructive sleep apnea, pulmonary hypertension, hyperlipidemia, history of calf and right subclavian vein DVT, pancreatic pseudocyst and gallstone pancreatitis
Surgical History: ICD, right thumb amputation
Family History: Non-contributory
Social History: and lives with his
Allergies: Penicillins
Review of Symptoms:
Unable to obtain with patient's lethargy
Physical Exam:
Middle elderly aged man, appears confused, mild distress, no signs of trauma to head or neck, oropharnyx clear, heart rate regular, breath sounds present bilaterally no wheezes on exam, abdomen obese soft non tender, there is 1+ pitting edema
bilaterally
Neurologic Examination:
Mental status shows lethargy and inattention, [id number], eyes are closed and open to command, patient will drift off to inattentive and eyes closed state after verbal interaction, will obey simple commands consistently showing intact comprehension,
says his name, 's name, he can name simple objects consistently and repeat complex phrases, can count to 10 and shows fluent expressive speech function, no signs of hemineglect
Cranial nerve examination shows severe dysarthria, resting gaze is midline and extra ocular movements are full, no gaze preference seen, patient shows consistently full visual del cid bilaterally to finger confrontation, smile and face appears
symmetric no obvious weakness with grimace, tongue is midline, pupils are 3mm equal round and reactive to light bilaterally
Motor examination shows clear asterixis in the arms and legs bilaterally, patient is able to lift arms with good strength and no drift holding above his head without drift for 10 seconds, arm flexion strength 5/5 bilaterally, no drift with lifting
either leg with hip flexion holding it in the air for 10 seconds.
Sensory exam is intact to noxious stimulation in all limbs and shows no sensory neglect
Unable to obtain reflexes throughout
Normal finger to nose testing bilaterally patient will touch fingers to nose when prompted to do so
Gait exam deferrred
Neuro Imaging: CT head non contrast with age appropriate atrophy, no acute infarct or hemorrhage seen
CTA head and neck patent basilar artery, no intracranial occlusion seen on ELECTRIC MOTOR AND GENERATOR ASSEMBLER, or MCA arteries, left sided Pcomm. Patent carotids bilaterally.
Impressions
Likely CO2 narcosis producing dysarthria, lethargy, confusion, and asterixis. Stemming for COPD, additionally has pulmonary hypertension and history of HFpEF. With no focal findings of asymmetry on cranial nerves or motor exam and absence of large
vessel occlusion particularly a normal basilar artery I feel this is unlikely a new ischemic stroke.
Patient has the following risk factors for their symptoms:
IV Tenecteplase/IAT candidacy: Patient within window for TNK however with history of obstructive sleep apnea, COPD, known history of elevated CO2 in the 70's this admission and declining use of BiPap therapy, along with examination showing
drowsiness, dysarthria, asterixis and no asymmetric findings on cranial nerves or motor examination I feel this is more likely to be CO2 narcosis and less likely an ischemic stroke, and thus feel that risks of TNK outweigh the benefits, no signs of
large vessel occlusion on CTA not on IAT candidate
Recommendations:
1. Continue to encourage and stress benefits of BiPAP for CO2 retention
2. Minimize sedating medications that could lead to decreased level of consciousness and worsened CO2 retention/hypoventilation
3. Can continue on aspirin 81 mg daily
4. Check CO2, basic bloodwork for metabolic causes in electrolytes and renal function
Will follow as needed call with questions and concerns
Discussed patient care with: Patient and his , nursing, hospitalist
--- NOTE | 2024-04-03 12:15 | PTCARENOTE ---
Pt's family came out of room and stated that he is not acting himself and has garbled speech. Upon entering room pt appeared slouched in chair but arousable. VSS, accucheck stable, EKG completed Assessed pt with NIH with score of 6. Rapid/stroke
alert called. Team came to assess pt. CT head complete and pt will be transferred to IMU for Bi Papap. Family at bedside.
[2024-04-03 12:23] LABS: ALT (SGPT) 19 U/L (0-50); AST (SGOT) 31 U/L (17-59); Albumin 3.6 g/dl (3.5-5.0); Alkaline Phosphatase 109 U/L (38-126); Blood Urea Nitrogen 62 mg/dl (9-20); Calcium 8.7 mg/dl (8.4-10.2); Chloride 71 mmol/L (98-107); Estimated Creatinine Clearance 48 ml/min; Glucose 194 mg/dl (70-99); Potassium 3.9 mmol/L (3.5-5.1); Sodium 133 mmol/L (135-145); Total Bilirubin 0.6 mg/dl (0.2-1.3); Total Protein 6.8 g/dl (6.3-8.2); eGFR 42.57
[2024-04-03 12:29] LABS: Carbon Dioxide 54 mmol/L (22-30)
--- NOTE | 2024-04-03 15:00 | PTCARENOTE ---
Received patient by bed from 4th floor RN. Patient on 3L NC, sats 87%, patient lethargic. Able to arouse and convince to go on bipap. Bipap placed by respiratory. Currently sats 96%, patient comfortable and resting. NSR on monitor. VSS. Family at
bedside. Will continue to closely monitor.
--- NOTE | 2024-04-03 21:00 | PTCARENOTE ---
This RN attempted to arouse Pt verbally to perform an assessment and administer PO evening Meds. Pt neglected to open eyes via verbal stimuli multiple times. RN proceeded to firmly rub Pt on the chest, Pt proceeded to groan in response to pain
however Pt eyes remained clenched shut. Pt proceed to attempt to urinate, while eyes were closed. RN offered help, however Pt mumbled aggressively and refused assistance. This RN expressed concern r/t the inability to arouse Pt to open eyes and
onset of aggression. RN interpreted new aggression as change in cognition, however reassured RN that this is not unusual for the Pt and the Pt is 'upset '. This RN mentioned to at bedside the desire to obtain the ordered ABG's that were
unable to be obtained during the day. Both patient and promptly refused. RN attempted to educate Pt and upon the rational of preforming this diagnostic test. Both continued to refuse. stating Pt 'does not want this'. This RN clarified
code status with , Pt is currently a Full code.
[2024-04-03] MEDS: KCL PO (21:59)
[2024-04-03] MEDS: NEURONTIN PO (22:01)
--- NOTE | 2024-04-03 22:11 | RESPNOTE ---
Two resp therapists tried to obtain the ABG in the evening and could not. MD was made aware. PT is currently on BIPAP and at bedside. I also wanted to give a try for the ABG seeing that the order was never d/c'd by the physician but
refused it. Nursing is aware.
--- NOTE | 2024-04-03 23:15 | PTCARENOTE ---
Pt alert but drowsy & uncooperative in beginning of shift. ABG's were unable to be obtained during dayshift. ABG order was still in, spoke to RT. Spoke to spouse & pt about trying to obtain ABG's again, both refused. VBG's already ordered for the
AM, will obtain. Updated and answered all questions.
--- NOTE | 2024-04-03 23:50 | PTCARENOTE ---
Pt heard calling out in room. Pt wearing BIPAP, making it hard to understand exact words. RN entered room and Pt found to be independently using the urinal with eyes open. Pt able to have short oriented conversation asking 'where am I in the
hospital'. Call abdul in reach.
[2024-04-04] VITALS (13 sets, daily range): BP systolic 121–141; BP diastolic 62–105; PULSE 2–77; O2SAT 91–92; BMI 37.1
[2024-04-04] MEDS: HEPARIN 5000 UNITS SC ×4 (00:15→23:04)
--- NOTE | 2024-04-04 02:30 | PTCARENOTE ---
Pt sats dropping to 86% while on bipap with 5L. Respiratory notified. Pt increased to 7L. Pt increased to 93%.
[2024-04-04 05:24] LABS: Venous Blood Gas B.E. >30.0 mmol/L (-4 to +4); Venous Blood Gas HCO3 > 60.0 mmol/L (22-27); Venous Blood Gas O2 Sat % 97.2 %; Venous Blood Gas pO2 141 mmHg (30-50)
[2024-04-04 05:28] LABS: Venous Blood Gas pCO2 89 mmHg (35-48)
[2024-04-04 05:52] LABS: Magnesium 2.3 mg/dl (1.6-2.3)
--- NOTE | 2024-04-04 05:58 | PTCARENOTE ---
Morning VBG's came back critical. pH 7.50, pCO2 89, pO2 141, HC03 >60.0. Pt satting 93% on bipap with 7L 12/5. Pts mentation is consistent with assessment of LOC since start of shift. Pt is agitated and forgetful but arousable via verbal stimuli.
VBG's were drawn with morning labs r/t inability to obtain ABGS 04/03 evening, respiratory therapsit attempted to obtain ABGS 04/03 evening however Pt and adamantly refused. INSURANCE SALES ASSOCIATE made aware.
--- NOTE | 2024-04-04 06:21 | W.PN.HOSP.TC ---
Today's Communication/Plan
-
.
Assessment / Plan
Assessment / Plan
Physical Exam
General: Comfortable and Conversant, obese.
HEENT: Anicteric, Moist mucous membranes and Oxygen (Nasal Cannula)
Respiratory: positive for crackles and limited. Non Labored Respirations
Cardiac: S1/S2
GI: Soft, Non Tender and Other (Protuberant)
: No Brown, + scrotal swelling.
Musculoskeletal: No Clubbing, No Cyanosis. Less edema in both legs
Skin: Warm and Dry; No Rash
Neuro: Awake, Alert, Oriented and Nonfocal/grossly intact
Psych: Calm
# Toxic metabolic encephalopathy
Patient became more drowsy,dysarthria, asterixis and less responsive. Nurses: suspected stroke. Stroke alert was called on 04/03. Patient was immediately evaluated by neurologist/stat imaging studies of the head did not show acute finding.
Neurologist recommended to continue to treat CO2 narcosis.
Patient was moved to IMU and was placed on BiPAP therapy
Of note, patient was having lethargy and asterixis at home also but refusing BiPAP therapy despite recommendations and counseling.
#Acute on chronic hypoxic and hypercapnic respiratory failure
History of obstructive sleep apnea/pulmonary hypertension/acute on chronic heart failure with preserved ( diastolic)ejection fraction/weight gain-obesity/noncompliant to his CPAP although he reported he was trying to use it more than before (patient
reported intolerance to CPAP)
Decompensation secondary to worsening all the above
He is on Bipap now. Hopefully he will use it as advised.
He is not confused, he AAOX3.
Continue with oxygen therapy but avoid CO2 retention. Admission Pro-BNP 370.
No indication for antibiotics.
Weight is unchanged.
Monitor renal function while on aggressive diuretic therapy. Creatinine at 1.8 today( same as yesterday). Head Of Marketing Adometry felt it was within normal range for the pt. Bladder scan done : no retention.
Counseling to lose weight and use medications/use of CPAP
Continue inhalation therapy
CT of the chest showed Complete right middle lobe collapse, new from prior. Difficult to exclude a central obstructing lesion. Consider nonemergent bronchoscopy. d/w pulmonary, recommended Bipap but pt refused.
Blood culture x 2 NGTD
Primary steel buffer with [facility]/Dr. Shah. He saw Dr. Mars in the past.
Recent echo in April 2023 showed LVEF 75%/trace MR/mild to moderate TR with elevated pulmonary artery pressure at 44 mmHg. Repeat echo 04/01/2024 showed LV EF 65 to 70%, reduced right ventricular systolic function, mild to moderate TR, estimated
pulmonary arterial pressure of 45 - 50 mmHg.
Primary utility system operator Dr. Bill
Might need to repeat right heart catheterization, defer decision to response to diuretic treatment and further evaluation
Appreciate pulmonary and cardiology input
# hypokalemia, replaced
# Obesity
# Obstructive sleep apnea
Non compliant to C pap, intolerant
# Chronic kidney disease stage IIIb
Creatinine 1.8 today
No renal colic or dysuria. No hematuria. Monitor renal function while on diuretics
Renal US No hydronephrosis on either side. Renal Cortical atrophy suggestive of medical renal disease.
# Primary hypertension
AM BP today 137/64
# History of orthostatic hypotension
# History of right subclavian DVT after dialysis catheter placement 2018
# History of VT status post single-chamber [employer] ICD in 2018
Episodes of bradycardia, will d/w cardiology, appreciate help.
# History of polycythemia vera. Hemoglobin at 11
# DVT prophylaxis
Total time spent to see the patient, examine the patient on the floor, review data and lab results, discuss treatment plan with patient, and nursing staff around 57 minutes
Anticipated Discharge: > 48 hours
Subjective/Interval History
-
Date of Service: April 04, 2024
He kept Bipap over night, was more alert and followed commands
Objective Data
-
Labs:
Laboratory Results
04/03/24
14:29
HCO3 Cancelled
Vital Signs:
Vital Signs
Temp Pulse Resp BP Pulse Ox
98.3 F 78 21 129/67 87
04/04/24 03:30 04/04/24 02:00 04/04/24 02:00 04/04/24 02:00 04/04/24 02:00
I&O
04/02/24 04/03/24 04/04/24
06:59 06:59 06:59
Intake Total 660 / 660 840 / 840
Output Total 1700 / 1700 825 / 825 1850 / 1850
Balance -1040 / -1040 -1849 / -1849
--- NOTE | 2024-04-04 06:22 | PTCARENOTE ---
called & requested that the pt's brand manager be contacted so they can follow his case. Pt sees Dr. Taiwo Shah at [place]. Will pass on.
[2024-04-04 07:13] LABS: Blood Urea Nitrogen 57 mg/dl (9-20); Calcium 8.9 mg/dl (8.4-10.2); Chloride 74 mmol/L (98-107); Estimated Creatinine Clearance 45 ml/min; Glucose 109 mg/dl (70-99); Potassium 3.4 mmol/L (3.5-5.1); Sodium 137 mmol/L (135-145); eGFR 39.75
[2024-04-04 07:33] LABS: Carbon Dioxide 54 mmol/L (22-30)
[2024-04-04] MEDS: SPIRIVA RESPIMAT 2.5 MCG 2 PUFF INH (07:56)
[2024-04-04] MEDS: VENTOLIN NEBULES 2.5 MG INH ×4 (07:56→21:11)
[2024-04-04] MEDS: PULMICORT 0.5 MG INH ×2 (07:56→21:11)
--- NOTE | 2024-04-04 08:15 | PTCARENOTE ---
Patient received from mini shifter. Patient resting comfortably in bed. AAO, VSS although patient now showing some bradycardia. Hospitalist made aware of bradycardia. Pacemaker/Defibrillator. No events noted over night. No complaints of pain at
this time. Currently on BiPAP, / with 7L O2. Call abdul in reach.
[2024-04-04] MEDS: WELLBUTRIN XL (24 hour extended release) 150 MG PO (08:47)
[2024-04-04] MEDS: ASPIR LOW (ENTERIC COATED) 81 MG PO (08:47)
[2024-04-04] MEDS: PROTONIX 40 MG PO (08:47)
[2024-04-04] MEDS: LASIX 80 MG IV ×2 (08:47→17:01)
[2024-04-04] MEDS: KCL 20 MEQ PO ×2 (08:47→19:49)
[2024-04-04] MEDS: ZITHROMAX 250 MG PO (08:47)
[2024-04-04] MEDS: IMDUR (EXTENDED RELEASE) 30 MG PO (08:47)
--- NOTE | 2024-04-04 09:09 | W.PN.PUL3 ---
Addendum entered and electronically signed by Denice Garcia DO 04/04/24 16:22:
NIV Addendum:
Patient is a 69-year-old male with end-stage COPD, he has had multiple ER and hospital readmissions with a chief complaint of shortness of breath and respiratory failure. The patient has a pCO2 of 89 on 3 L of oxygen. He reports he is on oxygen
continuously. Patient reports he gets short of breath with minimal exertion. Patient also reports limited mobility due to his breathing. Due to the patient's COPD and hypoventilation, the patient is at risk for worsening chronic respiratory
failure. I have considered bilevel, bilevel ST and bilevel VAPS therapy and they have all been ruled out due to the patient's worsening condition. The patient now requires a unique mode of ventilation not offered on less costly options. The
patient requires a device that will not fail in the event of a power failure and is also portable for mobility within the home when needed. Due to the patient's worsening condition I am prescribing noninvasive ventilation therapy to decrease the
chance of continued unplanned expensive medical encounters including physician office visits, emergency/urgent care treatment and hospital readmissions.
Original Note:
Today's Communication / Plan
-
Continue PAP therapy nightly and PRN
CM consult for NIV set up at home
Reviewed GOC again, family states he would not be ready for hospice
They have instructed us to call them should be refuse again
Assessment
-
69 year old male with a past medical history of COPD, pulmonary hypertension, CHF, V-Tach with defibrillator who presents today for worsening shortness of breathe and lower extremity swelling x 3 weeks. He has not been weighing himself regularly and
states his last weight he took was last Sunday at 256 lbs. Per at bedside, he has been stable at 240lbs last year. He is chronically on 3L O2 which he states he has been wearing daily and at night. He states his pulse ox at home has been
stable in the low 90's. He has been taking 80 mg Lasix BID and metolazone daily for the past 7-8 days without any relief of the LE edema. He also complains of increase in fatigue and need for sleep for the past week. notes that he has not been
compliant with cardiac diet/low salt.
AECHF
RML collapse/atelectasis
Acute hypercarbic respiratory failure, suspected
History of noncompliance
Conditions present prior admission:
COVID pneumonia, adm Aug, received dexam/remdesivir
COPD, end stage, on home oxygen 11/06 at 3L of supplemental oxygen, chronic hypoxemia/hypercarbia, chronic elevation of Hgb
Dr. Mars
On albuterol HFA, arformoterol, budesonide, revefenacin (yupelri)
PFT 02/22/2021: FEV1 1.07 L - 35%. FVC 2.19 L - 52%-severe airflow obstruction.
RV dysfunction on TTE 03-28-22 as c/w April 2021 (but trace TR)
VBG 04/04/22: pH 7.31/109/34/54.9
HFpEF ([facility] 03-30-22)
Hypertension
Obstructive sleep apnea-AHI 52 events per hour, marginal compliance to CPAP
Chronic kidney disease, temporary placement HD catheter 03-14-18 for MONTSERRAT
Morbid obesity
Ventricular tachycardia status post ICD
Coronary artery disease
Hyperlipidemia
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
Former smoker
Pulmonary hypertension: Likely post capillary/obstructive sleep apnea
New RLE DVT 11-23-21 (negative RLE doppler 11-03-21): ER visit 11-23-21 (no PE on CTA), d/c home on apixaban. Denies prior h/o DVT
Plan
Patient has history of chronic oxygen use, currently 95% on 3L NC
He is on his baseline use of O2
Prior history of lung disease is noted including:
He has history of severe GUCCI and noncompliant with CPAP, last ABG 2 years ago showing Co2 levels are >100.
Had been seeing Dr Mars in past, but notes he now goes to [facility]. She was told by someone there that his CO2 levels were due to excessive oxygen administration.
He has yet to have a follow up sleep study following weight loss per .
COPD, last PFT 2020 with severe obstruction
Suspect patient has underlying acute retention of CO2, causing possible daytime sleepiness
Repeat AB.55 - 76 prior ABG 7.31 - 109
Has noncompliance wtih CPAP
AHI 50 on last sleep study
Retrial of BIPAP last night, he refused again
He is at high risk of ventilatory failure/vent dependancy, this was communicated to patient and
Repeat ABG pending given events
Now on BIPAP
CXR obtained indicating RML collapse
New finding, CT confirmed
I suspect this is from OHS, but if not improved on subsequent imaging may need advanced procedure which would be high risk
Trial BIPAP, repeat imaging in next 24-48 hours
Airway clearance/nebs/vest needed
Repeat CXR--Persistent right middle lobe atelectasis
LE swelling and SOB noted, CXR reviewed without significant edema
proBNP not significantly elevated
Prior ECHO reviewed, stable function
Diuresis per cards team
He admits to noncompliance with HF regiment
Weight loss measures recommended
Obesity contributing to respiratory symptoms
Outpatient pulmonary FU at [facility] post discharge
GOC discussions would be warranted--family does not wish for hospice
Family Discussions
Radha 04/04- I had a very carleen conversation with and daughter at bedside and stated very clearly that if he does not use PAP therapy, he will be intubated and/or have tracheostomy placed in the future. was very argumentative about what
other plasterer spot have said to them in the past that have contradicted what has been recommended here. I have printed out reports of ABG and VBGs to them. I have also stated they can have any outside plasterer spot please call me to discuss his
care. His daughter understands that this is a difficult situation if he does not comply with his care.
His family states he would not be ready for hospice. They state that he will wear PAP every night from now on and if he does not, to please call them.
Diagnostic Data
CXR 04/03/24- Persistent right middle lobe atelectasis.
CXR 05-01-23 c/w 11-23-21. Baseline poor quality film with limited lung span but no gross infiltrates, L chest AICD. Current film portable with no infiltrates
CXR 03/31/24- 1. Right middle lobe opacity, which may represent pneumonia or atelectasis.
2. No significant pleural effusion on either side.
CT Chest 03/31/24- 1. Complete right middle lobe collapse, new from prior. Difficult to exclude a central obstructing lesion. Consider nonemergent bronchoscopy.
Chest CTA 11-23-21, c/w CT 03-09-18 IMPRESSION: No evidence of pulmonary embolus. Mild lower thoracic spine anterior wedge compression fracture. Stable parenchymal scarring. Stable
LUBA doppler 05-02-23 IMPRESSION:
1. No sonographic evidence for acute lower extremity venous thrombosis.
2. Chronic nonocclusive deep venous thrombosis in the right femoral vein.
LUBA doppler 11-23-21, c/w 11-03-21 IMPRESSION: Findings suggesting acute DVT of the right lower extremity from the mid thigh to and including the right knee. New.
TTE 05-02-23 CONCLUSIONS: Normal left ventricular wall thickness. Normal left ventricular systolic function. Normal left ventricular chamber size. Left ventricular ejection fraction is greater than 75% by Cottrell's method. Normal diastolic
function. Mitral valve opens normally. Posterior mitral annular calcification. Thickened mitral valve leaflets. Trace mitral regurgitation is seen. Trileaflet aortic valve. Thickened calcified aortic valve with adequate leaflet excursion. No
aortic regurgitation is seen. Tricuspid valve opens normally. Mild to moderate tricuspid regurgitation. Estimated pulmonary artery pressure of 44 mmHg, assuming a right atrial pressure of 3 mmHg. Dilated hypokinetic right ventricle. Since
echocardiogram March 2022, there is no significant change.
TTE 03-28-22 CONCLUSIONS: Technically difficult study - Definity used. Normal left ventricular chamber size. Normal left ventricular systolic function. Left ventricular ejection fraction is 70% by Cottrell's Method of Disc. Moderate concentric left
ventricular hypertrophy. Top normal right ventricular size - hypokinetic right ventricular free wall. ICD wire seen in right ventricle. No mitral regurgitation is seen. Structurally normal aortic valve without significant stenosis or regurgitation.
Trace tricuspid regurgitation. Estimated pulmonary artery pressure of 45-50 mmHg assuming a right atrial pressure of 3 mmHg. Structurally normal pulmonic valve without significant stenosis or regurgitation. Normal pericardium and pleura without
evidence of effusion. The aortic root is normal in caliber. The IVC is of normal size and demonstrates normal respiratory variation. Since echocardiogram from 04/2021 the right ventricle is now hypokinetic (mild to moderate hypokinesis)
[facility] 03-30-22
Hemodynamics (mmHg):
RA (m) : 18
RV (s/d) : 78/14
PA (s/d, m) : 75/28, 43
PCWP (m) : 34
Cardiac Output : 6.9 L/min
Cardiac Index : 2.9 L/min/m-2
Pulmonary vascular resistance: 104 [id number]
Systemic vascular resistance: 1123 [id number]
CONCLUSION:
1. Group 2 pulmonary hypertension with elevated left ventricular filling pressures and normal pulmonary artery pressures. No significant transpulmonary gradient
PFT's: 02/22/2021, FEV1 1.07 (35%), FVC 2.19 (52%). Severe obstruction.
Subjective Data
-
Date of Service:
Date of Service: April 04, 2024
Chief Complaint: Pulmonary Follow Up
Subjective:
patient seen and examined, improved mental status noted
while awake patient refused bipap again
family at bedside
Objective Data
Data Reviewed
Vital Signs / I&O / Oxygen:
Vital Signs
Temp Pulse Resp BP Pulse Ox
97.9 F 84 21 141/68 90
04/04/24 07:20 04/04/24 08:47 04/04/24 07:57 04/04/24 08:47 04/04/24 08:33
Intake and Output
04/03/24 04/04/24 04/05/24
06:59 06:59 06:59
Intake Total 840 / 840
Output Total 825 / 825 1849 / 1849
Balance -1849
SaO2 90
Nasal Cannula flow liters per 5
minute
Physical Exam
General: Other (NAD) and Other (sleeping in chair)
HEENT: Normocephalic, Anicteric, Moist Mucous Membranes and Other (edentulous)
Cardiovascular: S1-S2, Regular Rhythm and Peripheral Edema
Respiratory: Crackles, Non-Labored Respirations and Other (decreased BS overall)
GI: Soft, Distended (obese) and Non Tender
Neurology: Awake, Alert, Oriented, AO x 3 and No Motor Deficits
Skin: Warm and Dry
Labs/Micro/Reports
Lab Data
04/01/24 07:25
04/04/24 06:36
Laboratory Results
04/03/24
14:29
pH Cancelled
pCO2 Cancelled
pO2 Cancelled
HCO3 Cancelled
O2 Delivery Level Cancelled
Microbiology
03/31/24 15:31 Blood/Venous Blood Culture - Preliminary
No Growth in 72 hours- Final report to follow
03/31/24 15:31 Blood/Venous Blood Culture - Preliminary
No Growth in 72 hours- Final report to follow
--- NOTE | 2024-04-04 10:00 | PTCARENOTE ---
Patient off BiPAP. Capnography ordered to monitor CO2. Patient complaining that it hinders his ability to eat. Switched to regular N/C while eating and placed back on Capnography once finished. Patient stating that he is not going to continue to
wear it. Was able to convince patient to keep it on for a little while longer and why it is being used. Patient didnt seem interested. Stated he is leaving soon.
--- NOTE | 2024-04-04 12:58 | W.PN.CARDCBS ---
Today's Communication / Plan
-
Continue IV Lasix, hold further metolazone today
Given elevated bicarb could consider acetazolamide
Impression / Plan
-
PCP: Dr. Mariee
Primary [place] Support Worker: Dr. Bill
Impression:
Acute on chronic HFpEF
Dietary indiscretion
CKD 3, baseline appears to be Cre 1.4-1.7
h/o Pancreatic pseudocyst and necrotizing pancreatitis due to gallstone with prolonged hospitalization for multisystem organ failure, vent-dependent respiratory failure at [place] on 2018
history of VT s/p single chamber Medtronic ICD 05/15/18 as secondary prevention for syncope, VT
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
Obstructive sleep apnea, noncompliant w/ CPAP
Non-obstructive CAD by cath 05/13/18
COPD/obstructive lung disease, oxygen dependent 3 lpm at rest, followed by [place] [facility]
Pulmonary hypertension
Hypertension
Hyperlipidemia
h/o orthostatic hypotension
Osteoarthritis
h/o R subclavian vein DVT after dialysis catheter placement 2018.
h/o calf DVT (?left)
h/o traumatic amputation of R thumb
ECHO 03/28/22: Technically difficult study, Definity used, EF 70%, moderate concentric LVH, hypokinetic RV free wall, PAP 45 to 50 mmHg
ECHO 05/02/23: EF greater than 75%, posterior MAC, thickened mitral valve leaflets, trace MR, mild to moderate TR, PAP 44 mmHg, dilated hypokinetic RV, no significant change compared to prior
Echo 04/01/24: Normal left ventricular chamber size. Mild concentric left ventricular hypertrophy. Hyperdynamic left ventricular systolic function. LV ejection fraction is 65-70% by Cottrell's method of discs. Reduced right ventricular systolic
function. Pacer wire seen in right ventricle. Posterior mitral annular calcification. No mitral regurgitation is seen. Mild to moderate tricuspid regurgitation.Estimated pulmonary artery pressure of 45-50 mmHg Assuming a right atrial pressure of 3
mmHg. Trace pulmonic regurgitation.Normal pericardium without effusion.The aortic root is of normal size. No significant change compared to 2022 echocardiogram
Plan:
Acute on chronic HFpEF
- Volume status improved with combination of IV lasix and metolazone
- Cont Lasix 80 mg IV BID, hold off on additional metolazone today
- Could consider diuresis with acetazolamide given significantly elevated bicarb
- Monitor I/O, weights
- Follow Cr
- Replete K > 3.4, Mag > 4
- EF was preserved by last echo 05/02/23
Severe GUCCI and noncompliant with CPAP with acute retention of CO2
-COPD, last PFT 2020 with severe obstruction
-Pulmonary consulted
- Has noncompliance wtih CPAP; Retrial of BIPAP last night, he refused again. Per pulmonary; He is at high risk of ventilatory failure/vent dependancy, this was communicated to patient and
Patient with a h/o hypotension and previously required midodrine.
-Not chronically on BB or HARI/ARB/ARNI.
HPI: Patient came to [facility] today with increased SOB and edema and is now being admitted with acute HF so cardiology has been consulted. Patient has a history of VT s/p ICD, diastolic CHF and pancreatitis. He had gallstone pancreatitis leading to
multisystem organ failure and VDRF 02/2018. He was diagnosed with pancreatic pseudocyst and necrotizing pancreatitis as well. He was treated at [facility]. Then he was admitted to 04/2018 and while here had sustained VT so he had a single chamber
Medtronic ICD placed. Patient has had 2-3 admissions a year for acute HF since 2018, last admission was 04/2023. Since then patient has been doing well taking his outpatient dose of Lasix 80 mg PO BID plus metolazone 2.5 mg daily PRN weight gain.
Patient was seen in the cardiology office for weight gain and acute HF last year and tried to use Furoscix outpatient SQ Lasix device without success. Patient and say that edema started after eating Easter ham about a month ago. He then had ham
leftovers for a week. Then he was eating [employer] based salads with crackers and other times eating pretzels. Patient had weight gain and increased edema that his was able to get under control with metolazone x1, but then he continued to eat
crackers and pretzels. His has given him metolazone daily for the last week without diuresis.
Progress Note - [place] Support Worker
Subjective
Date of Service: April 04, 2024
Neurology eval yesterday for possible stroke, thought to be CO2 narcosis. Patient remains in IMU resting comfortably out of bed to chair with family at bedside. They tell me his volume status is significantly improved. Patient is anxious to be
discharged.
Objective
Labs:
04/01/24 07:25
04/04/24 06:36
Labs
Hgb 11.7 g/dL (13.0-18.0) L 04/01/24 07:25
Hct 41.7 % (39.0-52.0) 04/01/24 07:25
Plt Count 436 10^3/uL (130-400) H 04/01/24 07:25
Sodium Cancelled 04/04/24 06:36
Potassium Cancelled 04/04/24 06:36
BUN Cancelled 04/04/24 06:36
Creatinine Cancelled 04/04/24 06:36
Glucose Cancelled 04/04/24 06:36
Vital Signs and I&O:
Vital Signs
Temp Pulse Resp BP Pulse Ox
98.4 F 82 20 141/68 92
04/04/24 11:15 04/04/24 11:15 04/04/24 11:15 04/04/24 08:47 04/04/24 11:28
Vital Signs
Temp Pulse Resp BP Pulse Ox
98.4 F 82 20 141/68 92
04/04/24 11:15 04/04/24 11:15 04/04/24 11:15 04/04/24 08:47 04/04/24 11:28
Intake & Output
04/02/24 04/03/24 04/04/24 04/05/24
06:59 06:59 06:59 06:59
Intake Total 660 / 660 840 / 840
Output Total 1700 / 1700 825 / 825 1850 / 1850 500 / 500
Balance -1040 / -1040 -0 / -1850 -500 / -500
Physical Exam
Physical Exam
Gen: NAD, AA
HEENT: NC/AT, sclera anicteric
Neck: No JVD
CV: RRR, NL s1/s2
Lungs: Diminished throughout on 3 L nasal cannula
Abd: Protuberant
Ext: Trace left greater than right LE edema
Skin: Warm, dry
Neuro: Non-focal, tremulous
--- NOTE | 2024-04-04 14:03 | PTCARENOTE ---
Patient more compliant with Capnography N/C after a more detailed explanation with him and family at bedside.
--- NOTE | 2024-04-04 15:00 | CM ---
Patient with Dx Acute on chronic hypoxic and hypercapnic respiratory failure. O2 3L - BiPAP. Receiving IV Lasix. PT/OT recommend HH.
CM Consult: order NIV setup.
Spoke with Saranya/David; requested NIV for patient and sent clinical (demographics, H&P, ABGs) to her e-fax. She will send NIV Order Form to CM which will need MD signature, and specific recommendation language for MD med necessity notes. CM
will need to fax back the signed NIV Form and the updated pulmonary notes with medical necessity. [facility] first availability to deliver NIV to home is Saturday 04/07. Their edger technician will provide instruction to patient/ when NIV is setup. As per
initial CM assessment; patient already has home O2 setup. [facility] is able to order NIV for this patient regardless of who the vendor is for his home O2.
Met with patient & ; explained hearing therapist order for home NIV and that order will be placed today. Informed patient/ that first available delivery date is Sun and they will be trained by [facility] edger technician when setup. Patient expressed
frustration that he has to stay here over the weekend- Dr Meade & Dr Garcia were made aware.
Discussed PT/OT recommendations and offered VN for SN/PT/OT. Patient declined VN saying his daughter and daughter in law are both nurses.
Plan home with NIV through [facility].
[2024-04-04] MEDS: NEURONTIN 300 MG PO (23:04)
[2024-04-05] VITALS (12 sets, daily range): BP systolic 116–147; BP diastolic 36–81; PULSE 2–71; BMI 36.9
--- NOTE | 2024-04-05 00:16 | PTCARENOTE ---
POX 86-88% on 3L. Wearing capnography etCO2 52. Pt is refusing to wear BIPAP until approx 0200. He is quite uncooperative with plan of care. RT aware. Will continue to monitor.
[2024-04-05 05:10] LABS: Hematocrit 37.9 % (39.0-52.0); Mean Corpuscular Hgb 22.8 pg (27.0-31.0); Mean Corpuscular Volume 78.6 fL (80.0-94.0); Mean Platelet Volume 10.2 fL (7.4-10.4); Platelet Count 390 10^3/uL (130-400); Red Blood Cell Count 4.82 10^6/uL (4.70-6.10); Red Cell Dist. Width 16.3 % (11.5-14.5); White Blood Cell Count 11.6 10^3/uL (4.8-10.8)
[2024-04-05 05:34] LABS: Blood Urea Nitrogen 56 mg/dl (9-20); Calcium 8.7 mg/dl (8.4-10.2); Chloride 74 mmol/L (98-107); Estimated Creatinine Clearance 43 ml/min; Glucose 121 mg/dl (70-99); Potassium 3.2 mmol/L (3.5-5.1); Sodium 137 mmol/L (135-145); eGFR 37.25
[2024-04-05 05:45] LABS: Carbon Dioxide 52 mmol/L (22-30)
--- NOTE | 2024-04-05 05:51 | PTCARENOTE ---
Pt eventually wore BIPAP 12/5/7L overnight for approx 5 hours. Currently on 5L with capnography. ETCO2 9-18. POX 87-95%. Pt agreed to am labs collected and sent to lab. AM weight 242lbs. BERRIOS/Orthopneic/diminished. Occasional dnpc. VSS. Afebrile.
SB/SR/BBB on CM rate 60-80. Using urinal at bedside. Can be uncooperative with care and plan of care at times. More agreeable this am. No change from previous assessment. Call abdul within reach. Will continue to monitor.
--- NOTE | 2024-04-05 06:07 | W.PN.HOSP.TC ---
Today's Communication/Plan
-
.
Assessment / Plan
Assessment / Plan
Physical Exam
General: Comfortable and Conversant, obese.
HEENT: Anicteric, Moist mucous membranes and Oxygen (Nasal Cannula)
Respiratory: positive for crackles and limited. Non Labored Respirations
Cardiac: S1/S2
GI: Soft, Non Tender and Other (Protuberant)
: No Brown, + scrotal swelling.
Musculoskeletal: No Clubbing, No Cyanosis. Less edema in both legs
Skin: Warm and Dry; No Rash
Neuro: Awake, Alert, Oriented and Nonfocal/grossly intact
Psych: Calm
# Toxic metabolic encephalopathy
Patient became more drowsy,dysarthria, asterixis and less responsive. Nurses: suspected stroke. Stroke alert was called on 04/03. Patient was immediately evaluated by neurologist/stat imaging studies of the head did not show acute finding.
Neurologist recommended to continue to treat CO2 narcosis.
Patient was moved to IMU and was placed on BiPAP therapy
Of note, patient was having lethargy and asterixis at home also but refusing BiPAP therapy despite recommendations and counseling.
#Acute on chronic hypoxic and hypercapnic respiratory failure
History of obstructive sleep apnea/pulmonary hypertension/acute on chronic heart failure with preserved ( diastolic)ejection fraction/weight gain-obesity/noncompliant to his CPAP although he reported he was trying to use it more than before (patient
reported intolerance to CPAP)
Decompensation secondary to worsening all the above
He still combative and argumentative to use the BiPAP. Family is helping to make him more compliant but he remains resistant( unfortunately). He was placed on his home inhalers per request.
He is not confused, he AAOX3.
Continue with oxygen therapy but avoid CO2 retention. Admission Pro-BNP 370.
No indication for antibiotics.
Weight is unchanged.
Monitor renal function while on aggressive diuretic therapy. Creatinine at 1.8 today( same as yesterday). Pheresis Specialist felt it was within normal range for the pt. Bladder scan done : no retention.
Counseling to lose weight and use medications/use of CPAP
Continue inhalation therapy
CT of the chest showed Complete right middle lobe collapse, new from prior. Difficult to exclude a central obstructing lesion. Consider nonemergent bronchoscopy. d/w pulmonary, recommended Bipap but pt refused.
Blood culture x 2 NGTD
Primary recycling tech with [facility]/Dr. Shah. I left her messages with staff but did not receive a call back. He saw Dr. Mars in the past.
Recent echo in April 2023 showed LVEF 75%/trace MR/mild to moderate TR with elevated pulmonary artery pressure at 44 mmHg. Repeat echo 04/01/2024 showed LV EF 65 to 70%, reduced right ventricular systolic function, mild to moderate TR, estimated
pulmonary arterial pressure of 45 - 50 mmHg.
Primary spot machine operator Dr. Bill
Might need to repeat right heart catheterization, defer decision to response to diuretic treatment and further evaluation
Appreciate pulmonary and cardiology input
# hypokalemia, K at 3.2
Replace
# Obesity
# Obstructive sleep apnea
Non compliant to C pap, intolerant
# Chronic kidney disease stage IIIb
Creatinine 1.9 today
No renal colic or dysuria. No hematuria. Monitor renal function while on diuretics
Renal US No hydronephrosis on either side. Renal Cortical atrophy suggestive of medical renal disease.
# Primary hypertension
AM BP today 137/64
# History of orthostatic hypotension
# History of right subclavian DVT after dialysis catheter placement 2018
# History of VT status post single-chamber Medtronic ICD in 2018
Episodes of bradycardia, appreciate cardiology help.
# History of polycythemia vera. Hemoglobin at 11
# DVT prophylaxis
Total time spent to see the patient, examine the patient on the floor, review data and lab results, discuss treatment plan with patient, and nursing staff around 57 minutes
Anticipated Discharge: > 48 hours
Subjective/Interval History
-
Date of Service: April 05, 2024
Combative to use the Bipap and finally went to bed and had it for 4-5 hours
No chest pain
Objective Data
-
Labs:
Laboratory Results
04/05/24
04:55
WBC 11.6 H
Hgb 11.0 L
Hct 37.9 L
Plt Count 390
Sodium 137
Potassium 3.2 L
Chloride 74 L
Carbon Dioxide 52 H
BUN 56 H
Creatinine 1.9 H
Glucose 121 H
Calcium 8.7
Vital Signs:
Vital Signs
Temp Pulse Resp BP Pulse Ox
97.6 F 64 16 130/73 93
04/05/24 02:36 04/05/24 04:00 04/05/24 04:00 04/05/24 04:00 04/05/24 04:00
I&O
04/03/24 04/04/24 04/05/24
06:59 06:59 06:59
Intake Total 840 / 840 400 / 400
Output Total 825 / 825 1850 / 1850 1250 / 1250
Balance -0 / -1850 -850 / -850
[2024-04-05] MEDS: WELLBUTRIN XL (24 hour extended release) 150 MG PO (07:35)
[2024-04-05] MEDS: KCL 20 MEQ PO (07:35)
[2024-04-05] MEDS: ASPIR LOW (ENTERIC COATED) 81 MG PO (07:35)
[2024-04-05] MEDS: IMDUR (EXTENDED RELEASE) 30 MG PO (07:35)
[2024-04-05] MEDS: HEPARIN 5000 UNITS SC ×3 (07:35→23:04)
[2024-04-05] MEDS: PROTONIX 40 MG PO (07:35)
[2024-04-05] MEDS: LASIX 80 MG IV ×2 (07:35→16:51)
[2024-04-05] MEDS: PULMICORT 0.5 MG INH ×2 (07:47→19:53)
[2024-04-05] MEDS: NON-FORMULARY ITEM 175 MCG NEB (07:48)
[2024-04-05] MEDS: NON-FORMULARY ITEM 15 MCG INH ×2 (07:50→19:53)
--- NOTE | 2024-04-05 07:52 | W.PN.CARDCBS ---
Today's Communication / Plan
-
- Volume status improved with combination of IV lasix and metolazone. Has not required further metolazone.
- Cont Lasix 80 mg IV BID, and likely transition to oral lasix 80 mg PO BID next 24 hrs
- Could consider diuresis with acetazolamide in the future given significantly elevated bicarb
- Cont daily wts which are coming down and monitor I/Os
- Follow Cr, cr 1.9.
- EF was preserved by last echo March 2024
-Not chronically on BB or HARI/ARB/ARNI with renal insufficiency.
Impression / Plan
-
.
PCP: Dr. Mariee
Primary Concentrator Operator: Dr. Bill
Impression:
Acute on chronic HFpEF
Dietary indiscretion
TME with untreated GUCCI, pt not taking CPAP
CKD 3, baseline appears to be Cre 1.4-1.7
h/o Pancreatic pseudocyst and necrotizing pancreatitis due to gallstone with prolonged hospitalization for multisystem organ failure, vent-dependent respiratory failure at [place] on 2017
history of VT s/p single chamber Medtronic ICD 05/15/18 as secondary prevention for syncope, VT
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
Obstructive sleep apnea, noncompliant w/ CPAP
Noncompliance
Non-obstructive CAD by cath 05/13/18
COPD/obstructive lung disease, oxygen dependent 3 lpm at rest, followed by [place] [facility]
Pulmonary hypertension
Hypertension
Hyperlipidemia
h/o orthostatic hypotension
Osteoarthritis
h/o R subclavian vein DVT after dialysis catheter placement 2018.
h/o calf DVT (?left)
h/o traumatic amputation of R thumb
ECHO 03/28/22: Technically difficult study, Definity used, EF 70%, moderate concentric LVH, hypokinetic RV free wall, PAP 45 to 50 mmHg
ECHO 05/02/23: EF greater than 75%, posterior MAC, thickened mitral valve leaflets, trace MR, mild to moderate TR, PAP 44 mmHg, dilated hypokinetic RV, no significant change compared to prior
Echo 04/01/24: Normal left ventricular chamber size. Mild concentric left ventricular hypertrophy. Hyperdynamic left ventricular systolic function. LV ejection fraction is 65-70% by Cottrell's method of discs. Reduced right ventricular systolic
function. Pacer wire seen in right ventricle. Posterior mitral annular calcification. Mild to moderate tricuspid regurgitation.Estimated pulmonary artery pressure of 45-50 mmHg Assuming a right atrial pressure of 3 mmHg. Normal pericardium without
effusion.The aortic root is of normal size. No significant change compared to 2022 echocardiogram
Plan:
Acute on chronic HFpEF
- Volume status improved with combination of IV lasix and metolazone. Has not required further metolazone.
- Cont Lasix 80 mg IV BID, and likely transition to oral lasix 80 mg PO BID next 24 hrs
- Could consider diuresis with acetazolamide in the future given significantly elevated bicarb
- Cont daily wts which are coming down and monitor I/Os
- Follow Cr, cr 1.9.
- EF was preserved by last echo March 2024
-Not chronically on BB or HARI/ARB/ARNI with renal insufficiency.
- He has previously required midodrine but not currently. BP stable.
Severe GUCCI and noncompliant with CPAP with acute retention of CO2
-COPD, last PFT 2020 with severe obstruction
-Pulmonary consulted. He is on chronic O2.
- Has noncompliance wtih CPAP; Retrial of BIPAP as pt will allow. Per pulmonary; He is at high risk of ventilatory failure/vent dependancy
HPI: Patient came to [facility] today with increased SOB and edema and is now being admitted with acute HF so cardiology has been consulted. Patient has a history of VT s/p ICD, diastolic CHF and pancreatitis. He had gallstone pancreatitis leading to
multisystem organ failure and VDRF 02/2018. He was diagnosed with pancreatic pseudocyst and necrotizing pancreatitis as well. He was treated at [facility]. Then he was admitted to 04/2018 and while here had sustained VT so he had a single chamber
Medtronic ICD placed. Patient has had 2-3 admissions a year for acute HF since 2018, last admission was 04/2023. Since then patient has been doing well taking his outpatient dose of Lasix 80 mg PO BID plus metolazone 2.5 mg daily PRN weight gain.
Patient was seen in the cardiology office for weight gain and acute HF last year and tried to use Furoscix outpatient SQ Lasix device without success. Patient and say that edema started after eating Easter ham about a month ago. He then had ham
leftovers for a week. Then he was eating [employer] salads with crackers and other times eating pretzels. Patient had weight gain and increased edema that his was able to get under control with metolazone x1, but then he continued to eat
crackers and pretzels. His has given him metolazone daily for the last week without diuresis.
Progress Note - Concentrator Operator
Subjective
Date of Service: April 05, 2024
Pt seen and examined. No complaints. No chest pain or shortness of breath.
Objective
Labs:
04/05/24 04:55
04/05/24 04:55
Labs
Hgb 11.0 g/dL (13.0-18.0) L 04/05/24 04:55
Hct 37.9 % (39.0-52.0) L 04/05/24 04:55
Plt Count 390 10^3/uL (130-400) 04/05/24 04:55
Sodium 137 mmol/L (135-145) 04/05/24 04:55
Potassium 3.2 mmol/L (3.5-5.1) L 04/05/24 04:55
BUN 56 mg/dl (9-20) H 04/05/24 04:55
Creatinine 1.9 mg/dL (0.7-1.3) H 04/05/24 04:55
Glucose 121 mg/dl (70-99) H 04/05/24 04:55
Vital Signs and I&O:
Vital Signs
Temp Pulse Resp BP Pulse Ox
97.6 F 71 18 147/69 94
04/05/24 02:36 04/05/24 07:35 04/05/24 06:00 04/05/24 07:35 04/05/24 06:00
Vital Signs
Temp Pulse Resp BP Pulse Ox
97.6 F 71 18 147/69 94
04/05/24 02:36 04/05/24 07:35 04/05/24 06:00 04/05/24 07:35 04/05/24 06:00
Intake & Output
04/03/24 04/04/24 04/05/24 04/06/24
06:59 06:59 06:59 06:59
Intake Total 840 / 840 400 / 400
Output Total 825 / 825 1850 / 1850 1250 / 1250
Balance 15 / 15 -1850 / -1850 -850 / -850
Physical Exam
Physical Exam
General: No acute distress, AAOX3
Neck: Negative JVD
Heart: Regular, Negative S3 positive S1/S2, Negative S4, No murmur
Lungs: CTA b/l, negative wheezes/rales/rhonchi
Abd:Morbid obesity. Positive BS, NT/ND, neg rebound/rigidity/guarding
Ext: Negative cyanosis/clubbing. +1 b/l edema
Neuro: nonfocal
--- NOTE | 2024-04-05 08:30 | PTCARENOTE ---
Patient received from sulky driver. Patient resting comfortably in bed. AAO, VSS still with some episodes of bradycardia while asleep. Pacemaker/Defibrillator. No events noted over night. No complaints of pain at this time. Currently off BiPAP,
on Capnography N/C @ 5L due to desaturations. Will adjust accordingly to get back to 3L baseline. Wore BiPAP for approx. 5hrs overnight. Call abdul in reach.
--- NOTE | 2024-04-05 09:34 | W.PN.CARDCBS ---
Today's Communication / Plan
-
Weight is back up over the last 24 hours. Continue Lasix 80 mg IV twice daily. He may require additional metolazone depending on diuresis
Creatinine is stable at 1.8
Eventual transition to oral Lasix 80 mg p.o. twice daily
Cont daily wts which are coming down and monitor I/Os
Impression / Plan
-
.
PCP: Dr. Mariee
Primary Smasher Hand: Dr. Bill
Impression:
Acute on chronic HFpEF
Dietary indiscretion
TME with untreated GUCCI, pt not taking CPAP
CKD 3, baseline appears to be Cre 1.4-1.7
h/o Pancreatic pseudocyst and necrotizing pancreatitis due to gallstone with prolonged hospitalization for multisystem organ failure, vent-dependent respiratory failure at [facility] on 2018
history of VT s/p single chamber Medtronic ICD 05/15/18 as secondary prevention for syncope, VT
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
Obstructive sleep apnea, noncompliant w/ CPAP
Noncompliance
Non-obstructive CAD by cath 05/13/18
COPD/obstructive lung disease, oxygen dependent 3 lpm at rest, followed by [facility]
Pulmonary hypertension
Hypertension
Hyperlipidemia
h/o orthostatic hypotension
Osteoarthritis
h/o R subclavian vein DVT after dialysis catheter placement 2018.
h/o calf DVT (?left)
h/o traumatic amputation of R thumb
ECHO 03/28/22: Technically difficult study, Definity used, EF 70%, moderate concentric LVH, hypokinetic RV free wall, PAP 45 to 50 mmHg
ECHO 05/02/23: EF greater than 75%, posterior MAC, thickened mitral valve leaflets, trace MR, mild to moderate TR, PAP 44 mmHg, dilated hypokinetic RV, no significant change compared to prior
Echo 04/01/24: Normal left ventricular chamber size. Mild concentric left ventricular hypertrophy. Hyperdynamic left ventricular systolic function. LV ejection fraction is 65-70% by Cottrell's method of discs. Reduced right ventricular systolic
function. Pacer wire seen in right ventricle. Posterior mitral annular calcification. Mild to moderate tricuspid regurgitation.Estimated pulmonary artery pressure of 45-50 mmHg Assuming a right atrial pressure of 3 mmHg. Normal pericardium without
effusion.The aortic root is of normal size. No significant change compared to 2022 echocardiogram
Plan:
>>Acute on chronic HFpEF
Weight is back up over the last 24 hours. Continue Lasix 80 mg IV twice daily. He may require additional metolazone depending on diuresis
Creatinine is stable at 1.8
Eventual transition to oral Lasix 80 mg p.o. twice daily
Cont daily wts which are coming down and monitor I/Os
EF was preserved by last echo March 2024
Not chronically on BB or HARI/ARB/ARNI with renal insufficiency.
He has previously required midodrine but not currently. BP stable.
Severe GUCCI and noncompliant with CPAP with acute retention of CO2
-COPD, last PFT 2020 with severe obstruction
-Pulmonary evaluating. He is on chronic O2.
-Has noncompliance with CPAP; Retrial of BIPAP as pt will allow. Per pulmonary; He is at high risk of ventilatory failure/vent dependancy
HPI: Patient came to [facility] today with increased SOB and edema and is now being admitted with acute HF so cardiology has been consulted. Patient has a history of VT s/p ICD, diastolic CHF and pancreatitis. He had gallstone pancreatitis leading to
multisystem organ failure and VDRF 02/2018. He was diagnosed with pancreatic pseudocyst and necrotizing pancreatitis as well. He was treated at [facility]. Then he was admitted to 04/2018 and while here had sustained VT so he had a single chamber
Medtronic ICD placed. Patient has had 2-3 admissions a year for acute HF since 2018, last admission was 04/2023. Since then patient has been doing well taking his outpatient dose of Lasix 80 mg PO BID plus metolazone 2.5 mg daily PRN weight gain.
Patient was seen in the cardiology office for weight gain and acute HF last year and tried to use Furoscix outpatient SQ Lasix device without success. Patient and say that edema started after eating Easter ham about a month ago. He then had ham
leftovers for a week. Then he was eating tovar based salads with crackers and other times eating pretzels. Patient had weight gain and increased edema that his was able to get under control with metolazone x1, but then he continued to eat
crackers and pretzels. His has given him metolazone daily for the last week without diuresis.
Progress Note - Smasher Hand
Subjective
Date of Service: April 05, 2024
Pt seen and examined. No complaints. No chest pain or shortness of breath.
Objective
Labs:
04/05/24 04:55
04/05/24 04:55
Labs
Hgb 11.0 g/dL (13.0-18.0) L 04/05/24 04:55
Hct 37.9 % (39.0-52.0) L 04/05/24 04:55
Plt Count 390 10^3/uL (130-400) 04/05/24 04:55
Sodium 137 mmol/L (135-145) 04/05/24 04:55
Potassium 3.2 mmol/L (3.5-5.1) L 04/05/24 04:55
BUN 56 mg/dl (9-20) H 04/05/24 04:55
Creatinine 1.9 mg/dL (0.7-1.3) H 04/05/24 04:55
Glucose 121 mg/dl (70-99) H 04/05/24 04:55
Vital Signs and I&O:
Vital Signs
Temp Pulse Resp BP Pulse Ox
97.8 F 74 16 147/69 90
04/05/24 07:52 04/05/24 07:52 04/05/24 07:52 04/05/24 07:35 04/05/24 07:52
Vital Signs
Temp Pulse Resp BP Pulse Ox
97.8 F 74 16 147/69 90
04/05/24 07:52 04/05/24 07:52 04/05/24 07:52 04/05/24 07:35 04/05/24 07:52
Intake & Output
04/03/24 04/04/24 04/05/24 04/06/24
06:59 06:59 06:59 06:59
Intake Total 840 / 840 400 / 400
Output Total 825 / 825 1850 / 1850 1250 / 1250 400 / 400
Balance -1850 / -1850 -850 / -850 -400 / -400
Physical Exam
Physical Exam
General: No acute distress, AAOX3
Neck: Negative JVD
Heart: Regular, Negative S3 positive S1/S2, Negative S4, No murmur
Lungs: CTA b/l, negative wheezes/rales/rhonchi
Abd: Morbid obesity. Positive BS, NT/ND, neg rebound/rigidity/guarding
Ext: Negative cyanosis/clubbing/edema
Neuro: nonfocal
--- NOTE | 2024-04-05 11:53 | PTCARENOTE ---
Patient nodding off at times, VSS. Patient arousable and alert. Offered CPAP to wear for a little while, patient refused. Will continue to offer when noticing patient falling asleep.
--- NOTE | 2024-04-05 12:20 | W.PN.PUL3 ---
Today's Communication / Plan
-
O2
BPAP
BDs
CXR
Assessment
-
69 year old male with a past medical history of COPD, pulmonary hypertension, CHF, V-Tach with defibrillator who presents today for worsening shortness of breathe and lower extremity swelling x 3 weeks. He has not been weighing himself regularly and
states his last weight he took was last Sunday at 256 lbs. Per at bedside, he has been stable at 240lbs last year. He is chronically on 3L O2 which he states he has been wearing daily and at night. He states his pulse ox at home has been
stable in the low 90's. He has been taking 80 mg Lasix BID and metolazone daily for the past 7-8 days without any relief of the LE edema. He also complains of increase in fatigue and need for sleep for the past week. notes that he has not been
compliant with cardiac diet/low salt.
AECHF
RML collapse/atelectasis
Acute hypercarbic respiratory failure, suspected
History of noncompliance
Conditions present prior admission:
COVID pneumonia, adm Aug, received dexam/remdesivir
COPD, end stage, on home oxygen 24/7 at 3L of supplemental oxygen, chronic hypoxemia/hypercarbia, chronic elevation of Hgb
Dr. Mars in past
On albuterol HFA, arformoterol, budesonide, revefenacin (yupelri)
PFT 02/22/2021: FEV1 1.07 L - 35%. FVC 2.19 L - 52%-severe airflow obstruction.
RV dysfunction on TTE 03-28-22 as c/w April 2021 (but trace TR)
VBG 04/04/22: pH 7.31/109/34/54.[address] Taiwo Shah at [facility]
HFpEF (RH 03-30-22)
Hypertension
Obstructive sleep apnea-AHI 52 events per hour, marginal compliance to CPAP
Chronic kidney disease, temporary placement HD catheter 03-14-18 for [place]
Morbid obesity
Ventricular tachycardia status post ICD
Coronary artery disease
Hyperlipidemia
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
Former smoker
Pulmonary hypertension: Likely post capillary/obstructive sleep apnea
New RLE DVT 11-23-21 (negative RLE doppler 11-03-21): ER visit 11-23-21 (no PE on CTA), d/c home on apixaban. Denies prior h/o DVT
Plan
Patient has history of chronic oxygen use
Currently 93% on 3L NC
He is on his baseline use of O2
Prior history of lung disease is noted including:
He has history of severe GUCCI and noncompliant with CPAP, last ABG 2 years ago showing Co2 levels are >100.
Had been seeing Dr Mars in past, but notes he now goes to [facility], now follows Dr Taiwo Shah
He has yet to have a follow up sleep study following weight loss per .
COPD, last PFT 2020 with severe obstruction
Suspect patient has underlying acute retention of CO2, causing possible daytime sleepiness
Repeat AB.55 - 76 prior ABG 7.31 - 109
Has noncompliance to CPAP
AHI 50 on last sleep study
He is at high risk of ventilatory failure/vent dependancy, this was communicated to patient and
BIPAP 12/5 with O2 5L, tolerating well
CXR obtained indicating RML collapse 04-03
New finding, CT confirmed 03-31 as c/w CT 11-23-21
Suspect this is from OHS, but if not improved on subsequent imaging may need advanced procedure which would be high risk, this can be followed as outpatient at [facility]
CXR PA/lat 04-06 ordered
Airway clearance/nebs/vest needed
Repeat CXR--Persistent right middle lobe atelectasis
LE swelling and SOB noted, CXR reviewed without significant edema
proBNP not significantly elevated
Prior ECHO reviewed, stable function
Diuresis per cards team
He admits to noncompliance with HF regimen
Cards following, on IV lasix
Weight loss measures recommended
Obesity contributing to respiratory symptoms
Outpatient pulmonary FU at [place] post discharge with Dr Shah
GOC discussions would be warranted--family does not wish for hospice
Family Discussions
Dr Garcia 04/04- had a very carleen conversation with and daughter at bedside and stated very clearly that if he does not use PAP therapy, he will be intubated and/or have tracheostomy placed in the future. was very argumentative about what
other moss picker have said to them in the past that have contradicted what has been recommended here. Given printed out reports of ABG and VBGs to them. Dr Garcia offered them have any outside moss picker please call her to discuss his care.
His daughter understands that this is a difficult situation if he does not comply with his care.
His family states he would not be ready for hospice. They state that he will wear PAP every night from now on
Diagnostic Data
CXR 04/03/24- Persistent right middle lobe atelectasis.
CXR 05-01-23 c/w 11-23-21. Baseline poor quality film with limited lung span but no gross infiltrates, L chest AICD. Current film portable with no infiltrates
CXR 03/31/24- 1. Right middle lobe opacity, which may represent pneumonia or atelectasis.
2. No significant pleural effusion on either side.
CT Chest 03/31/24- 1. Complete right middle lobe collapse, new from prior. Difficult to exclude a central obstructing lesion. Consider nonemergent bronchoscopy.
Chest CTA 11-23-21, c/w CT 03-09-18 IMPRESSION: No evidence of pulmonary embolus. Mild lower thoracic spine anterior wedge compression fracture. Stable parenchymal scarring. Stable
LUBA doppler 05-02-23 IMPRESSION:
1. No sonographic evidence for acute lower extremity venous thrombosis.
2. Chronic nonocclusive deep venous thrombosis in the right femoral vein.
LUBA doppler 11-23-21, c/w 11-03-21 IMPRESSION: Findings suggesting acute DVT of the right lower extremity from the mid thigh to and including the right knee. New.
TTE 05-02-23 CONCLUSIONS: Normal left ventricular wall thickness. Normal left ventricular systolic function. Normal left ventricular chamber size. Left ventricular ejection fraction is greater than 75% by Cottrell's method. Normal diastolic
function. Mitral valve opens normally. Posterior mitral annular calcification. Thickened mitral valve leaflets. Trace mitral regurgitation is seen. Trileaflet aortic valve. Thickened calcified aortic valve with adequate leaflet excursion. No
aortic regurgitation is seen. Tricuspid valve opens normally. Mild to moderate tricuspid regurgitation. Estimated pulmonary artery pressure of 44 mmHg, assuming a right atrial pressure of 3 mmHg. Dilated hypokinetic right ventricle. Since
echocardiogram March 2022, there is no significant change.
TTE 03-28-22 CONCLUSIONS: Technically difficult study - Definity used. Normal left ventricular chamber size. Normal left ventricular systolic function. Left ventricular ejection fraction is 70% by Cottrell's Method of Disc. Moderate concentric left
ventricular hypertrophy. Top normal right ventricular size - hypokinetic right ventricular free wall. ICD wire seen in right ventricle. No mitral regurgitation is seen. Structurally normal aortic valve without significant stenosis or regurgitation.
Trace tricuspid regurgitation. Estimated pulmonary artery pressure of 45-50 mmHg assuming a right atrial pressure of 3 mmHg. Structurally normal pulmonic valve without significant stenosis or regurgitation. Normal pericardium and pleura without
evidence of effusion. The aortic root is normal in caliber. The IVC is of normal size and demonstrates normal respiratory variation. Since echocardiogram from 04/2021 the right ventricle is now hypokinetic (mild to moderate hypokinesis)
[facility] 03-30-22
Hemodynamics (mmHg):
RA (m) : 18
RV (s/d) : 78/14
PA (s/d, m) : 75/28, 43
PCWP (m) : 34
Cardiac Output : 6.9 L/min
Cardiac Index : 2.9 L/min/m-2
Pulmonary vascular resistance: 104 [id number]
Systemic vascular resistance: 1123 [id number]
CONCLUSION:
1. Group 2 pulmonary hypertension with elevated left ventricular filling pressures and normal pulmonary artery pressures. No significant transpulmonary gradient
PFT's: 02/22/2021, FEV1 1.07 (35%), FVC 2.19 (52%). Severe obstruction.
Subjective Data
-
Date of Service:
Date of Service: April 05, 2024
Chief Complaint: Pulmonary Follow Up
Subjective:
No major events reported overnight
Tolerating BiPAP last night and the night before, use BiPAP 5 hours/night
Uses CPAP at home on home O2
Follows with [facility] [place]
Review of Systems
General: Fever (n), Sweats (n), Chills and Satisfactory Appetite
HEENT: Epistaxis (n) and Dysphagia (n)
Cardiopulmonary: Dyspnea (n at rest on O2)
GI: Abdominal Pain (n), Nausea (n) and Vomiting
Neuro: Weakness (n)
Objective Data
Data Reviewed
Vital Signs / I&O / Oxygen:
Vital Signs
Temp Pulse Resp BP Pulse Ox
97.8 F 70 18 127/72 95
04/05/24 07:52 04/05/24 11:05 04/05/24 11:05 04/05/24 11:05 04/05/24 11:05
Intake and Output
04/04/24 04/05/24 04/06/24
06:59 06:59 06:59
Intake Total 400 / 400
Output Total 1850 / 1850 1250 / 1250 400 / 400
Balance -1850 / -1850 -850 / -850 -400 / -400
SaO2 95
Nasal Cannula flow liters per 3
minute
Physical Exam
General: Comfortable and Other (NAD)
HEENT: Normocephalic, Anicteric, Moist Mucous Membranes and Other (edentulous)
Cardiovascular: S1-S2, Regular Rhythm and Peripheral Edema (trace LUBA)
Respiratory: Crackles, Non-Labored Respirations and Stridor (n)
GI: Soft, Distended (obese) and Non Tender
Neurology: Awake, Alert, Oriented, AO x 3 and No Motor Deficits
Skin: Warm and Dry
Labs/Micro/Reports
Lab Data
04/05/24 04:55
04/05/24 04:55
Microbiology
03/31/24 15:31 Blood/Venous Blood Culture - Preliminary
No Growth in 4 days- Final report to follow
03/31/24 15:31 Blood/Venous Blood Culture - Preliminary
No Growth in 4 days- Final report to follow
[2024-04-05] MEDS: KCL 40 MEQ PO (21:14)
[2024-04-05] MEDS: NEURONTIN 300 MG PO (21:14)
--- NOTE | 2024-04-05 23:27 | PTCARENOTE ---
Pt currently resting in bed on BIPAP L POX 93-97%. Denies any pain or discomfort. VSS. Afebrile. SR/BBB on CM rate 60-70's. Rest of assessment as documented. Call abdul remains within reach. Will continue to monitor.
[2024-04-06] VITALS (14 sets, daily range): BP systolic 100–136; BP diastolic 63–100; PULSE 2–68; BMI 37.4
[2024-04-06 05:09] LABS: Blood Urea Nitrogen 50 mg/dl (9-20); Calcium 8.5 mg/dl (8.4-10.2); Chloride 77 mmol/L (98-107); Estimated Creatinine Clearance 46 ml/min; Glucose 105 mg/dl (70-99); Potassium 3.6 mmol/L (3.5-5.1); Sodium 138 mmol/L (135-145); eGFR 39.75
[2024-04-06 05:31] LABS: Carbon Dioxide 51 mmol/L (22-30)
--- NOTE | 2024-04-06 06:32 | W.PN.HOSP.TC ---
Today's Communication/Plan
-
.
Assessment / Plan
Assessment / Plan
Physical Exam
General: Comfortable and Conversant, obese.
HEENT: Anicteric, Moist mucous membranes and Oxygen (Nasal Cannula)
Respiratory: more air at bases. Non Labored Respirations
Cardiac: S1/S2
GI: Soft, Non Tender and Other (Protuberant)
: No Brown, less scrotal swelling.
Musculoskeletal: No Clubbing, No Cyanosis. Less edema in both legs
Skin: Warm and Dry; No Rash
Neuro: Awake, Alert, Oriented and Nonfocal/grossly intact
Psych: Calm
# Toxic metabolic encephalopathy
Patient became more drowsy,dysarthria, asterixis and less responsive. Nurses: suspected stroke. Stroke alert was called on 04/03. Patient was immediately evaluated by neurologist/stat imaging studies of the head did not show acute finding.
Neurologist recommended to continue to treat CO2 narcosis.
Patient was moved to IMU and was placed on BiPAP therapy
Of note, patient was having lethargy and asterixis at home also but refusing BiPAP therapy despite recommendations and counseling.
#Acute on chronic hypoxic and hypercapnic respiratory failure
History of obstructive sleep apnea/pulmonary hypertension/acute on chronic heart failure with preserved ( diastolic)ejection fraction/weight gain-obesity/noncompliant to his CPAP although he reported he was trying to use it more than before (patient
reported intolerance to CPAP)
Decompensation secondary to worsening all the above
He used BIpap last night but not during the day
Continue with oxygen therapy but avoid CO2 retention. Admission Pro-BNP 370.
No indication for antibiotics.
Weight is unchanged. Less edema in legs, less scrotal swelling.
Monitor renal function while on aggressive diuretic therapy. Creatinine at 1.8 today( same as yesterday). Kitchen Supervisor felt it was within normal range for the pt. Bladder scan done : no retention.
Counseling to lose weight and use medications/use of BIpap- CPAP was done
Continue inhalation therapy ( pt brought his own inhalers)
CT of the chest showed Complete right middle lobe collapse, new from prior. Difficult to exclude a central obstructing lesion. Consider nonemergent bronchoscopy. d/w pulmonary, recommended Bipap but pt refused.
Blood culture x 2 NGTD
Primary jr. java developer with [facility]/Dr. Shah. I left her messages with staff but did not receive a call back. He saw Dr. Mars in the past.
Recent echo in April 2023 showed LVEF 75%/trace MR/mild to moderate TR with elevated pulmonary artery pressure at 44 mmHg. Repeat echo 04/01/2024 showed LV EF 65 to 70%, reduced right ventricular systolic function, mild to moderate TR, estimated
pulmonary arterial pressure of 45 - 50 mmHg.
Primary lay out worker Dr. Bill
Might need to repeat right heart catheterization, defer decision to response to diuretic treatment and further evaluation
Appreciate pulmonary and cardiology input
# hypokalemia, K at 3.6
Increased KCl to 40 [place] BID.
# Obesity
# Obstructive sleep apnea
Non compliant to C pap, intolerant
# Chronic kidney disease stage IIIb
Creatinine 1.8 today
No renal colic or dysuria. No hematuria. Monitor renal function while on diuretics
Renal US No hydronephrosis on either side. Renal Cortical atrophy suggestive of medical renal disease.
# Primary hypertension
AM BP today 137/64
# History of orthostatic hypotension
# History of right subclavian DVT after dialysis catheter placement 2018
# History of VT status post single-chamber Medtronic ICD in 2018
Episodes of bradycardia, appreciate cardiology help.
# History of polycythemia vera. Hemoglobin at 11
# DVT prophylaxis
Total time spent to see the patient, examine the patient on the floor, review data and lab results, discuss treatment plan with patient, and nursing staff around 55 minutes
Anticipated Discharge: > 48 hours
Subjective/Interval History
-
Date of Service: April 06, 2024
Used Bipap at night
No fevers
NO pain in chest or abdomen
Objective Data
-
Labs:
Laboratory Results
04/06/24
03:51
Sodium 138
Potassium 3.6
Chloride 77 L
Carbon Dioxide 51 H
BUN 50 H
Creatinine 1.8 H
Glucose 105 H
Calcium 8.5
Vital Signs:
Vital Signs
Temp Pulse Resp BP Pulse Ox
98.4 F 64 18 115/72 91
04/06/24 03:00 04/06/24 06:00 04/06/24 06:00 04/06/24 06:00 04/06/24 06:00
I&O
04/04/24 04/05/24 04/06/24
06:59 06:59 06:59
Intake Total 400 / 400 600 / 600
Output Total 1850 / 1850 1250 / 1250 1725 / 1725
Balance -1850 / -1850 -850 / -850 -1125 / -1125
[2024-04-06] MEDS: PULMICORT 0.5 MG INH ×2 (07:17→18:16)
[2024-04-06] MEDS: NON-FORMULARY ITEM 175 MCG NEB (07:17)
[2024-04-06] MEDS: NON-FORMULARY ITEM 15 MCG INH ×2 (07:25→18:15)
--- NOTE | 2024-04-06 07:44 | W.PN.PUL3 ---
Today's Communication / Plan
-
O2
BPAP qhs
BDs
CPT
CXR am
Assessment
-
69 year old male with a past medical history of COPD, pulmonary hypertension, CHF, V-Tach with defibrillator who presents today for worsening shortness of breathe and lower extremity swelling x 3 weeks. He has not been weighing himself regularly and
states his last weight he took was last Sunday at 256 lbs. Per at bedside, he has been stable at 240lbs last year. He is chronically on 3L O2 which he states he has been wearing daily and at night. He states his pulse ox at home has been
stable in the low 90's. He has been taking 80 mg Lasix BID and metolazone daily for the past 7-8 days without any relief of the LE edema. He also complains of increase in fatigue and need for sleep for the past week. notes that he has not been
compliant with cardiac diet/low salt.
AECHF
RML collapse/atelectasis
Acute hypercarbic respiratory failure, suspected
History of noncompliance
Conditions present prior admission:
COVID pneumonia, adm Aug, received dexam/remdesivir
COPD, end stage, on home oxygen 24/7 at 3L of supplemental oxygen, chronic hypoxemia/hypercarbia, chronic elevation of Hgb
Dr. Mars in past
On albuterol HFA, arformoterol, budesonide, revefenacin (yupelri)
PFT 02/22/2021: FEV1 1.07 L - 35%. FVC 2.19 L - 52%-severe airflow obstruction.
RV dysfunction on TTE 03-28-22 as c/w April 2021 (but trace TR)
VBG 04/04/22: pH 7.31/109/34/54.[address] Taiwo Shah at [facility]
HFpEF (RHC 03-30-22)
Hypertension
Obstructive sleep apnea-AHI 52 events per hour, marginal compliance to CPAP
Chronic kidney disease, temporary placement HD catheter 03-14-18 for MONTSERRAT
Morbid obesity
Ventricular tachycardia status post ICD
Coronary artery disease
Hyperlipidemia
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
Former smoker
Pulmonary hypertension: Likely post capillary/obstructive sleep apnea
New RLE DVT 11-23-21 (negative RLE doppler 11-03-21): ER visit 11-23-21 (no PE on CTA), d/c home on apixaban. Denies prior h/o DVT
Plan
Patient has history of chronic oxygen use
Currently 93% on 3L NC
He is on his baseline use of O2
Prior history of lung disease is noted including:
He has history of severe GUCCI and noncompliant with CPAP, last ABG 2 years ago showing Co2 levels are >100.
Had been seeing Dr Mars in past, but notes he now goes to [facility], now follows Dr Taiwo Shah
He has yet to have a follow up sleep study following weight loss per .
COPD, last PFT 2020 with severe obstruction
Suspect patient has underlying acute retention of CO2, causing possible daytime sleepiness
Repeat AB.55 - 76 prior ABG 7.31 - 109
Has noncompliance to CPAP
AHI 50 on last sleep study
BIPAP 12/5 with O2 5L qhs, tolerating well
CXR obtained indicating RML collapse 04-03
New finding, CT confirmed 03-31 as c/w CT 11-23-21
CXR PA/lat 04-06: persistent RML collapse
CXR - am ordered
If no improvement during this adm, consider outpatient bronchoscopy at [facility] with his winderman Dr Taiwo Shah (who is an advanced bronchoscopist)
Resumed VEST 04-06: qid
HS nebs/alb ns qid
Guaifenesin
IS/acapella
Continue revefenacin, arformoterol
LE swelling and SOB noted, CXR reviewed without significant edema
proBNP not significantly elevated
Prior ECHO reviewed, stable function
Diuresis per cards team
He admits to noncompliance with HF regimen
Cards following, on IV lasix
Weight loss measures recommended
Obesity contributing to respiratory symptoms
Outpatient pulmonary FU at [facility] post discharge with Dr Shah
GOC discussions would be warranted--family does not wish for hospice
Family Discussions
Dr Garcia 04/04- had a very carleen conversation with and daughter at bedside and stated very clearly that if he does not use PAP therapy, he will be intubated and/or have tracheostomy placed in the future. was very argumentative about what
other winderman have said to them in the past that have contradicted what has been recommended here. Given printed out reports of ABG and VBGs to them. Dr Garcia offered them have any outside winderman please call her to discuss his care.
His daughter understands that this is a difficult situation if he does not comply with his care.
His family states he would not be ready for hospice. They state that he will wear PAP every night from now on
Diagnostic Data
CXR 04/03/24- Persistent right middle lobe atelectasis.
CXR 05-01-23 c/w 11-23-21. Baseline poor quality film with limited lung span but no gross infiltrates, L chest AICD. Current film portable with no infiltrates
CXR 03/31/24- 1. Right middle lobe opacity, which may represent pneumonia or atelectasis.
2. No significant pleural effusion on either side.
CT Chest 03/31/24- 1. Complete right middle lobe collapse, new from prior. Difficult to exclude a central obstructing lesion. Consider nonemergent bronchoscopy.
Chest CTA 11-23-21, c/w CT 03-09-18 IMPRESSION: No evidence of pulmonary embolus. Mild lower thoracic spine anterior wedge compression fracture. Stable parenchymal scarring. Stable
LUBA doppler 05-02-23 IMPRESSION:
1. No sonographic evidence for acute lower extremity venous thrombosis.
2. Chronic nonocclusive deep venous thrombosis in the right femoral vein.
LUBA doppler 11-23-21, c/w 11-03-21 IMPRESSION: Findings suggesting acute DVT of the right lower extremity from the mid thigh to and including the right knee. New.
TTE 05-02-23 CONCLUSIONS: Normal left ventricular wall thickness. Normal left ventricular systolic function. Normal left ventricular chamber size. Left ventricular ejection fraction is greater than 75% by Cottrell's method. Normal diastolic
function. Mitral valve opens normally. Posterior mitral annular calcification. Thickened mitral valve leaflets. Trace mitral regurgitation is seen. Trileaflet aortic valve. Thickened calcified aortic valve with adequate leaflet excursion. No
aortic regurgitation is seen. Tricuspid valve opens normally. Mild to moderate tricuspid regurgitation. Estimated pulmonary artery pressure of 44 mmHg, assuming a right atrial pressure of 3 mmHg. Dilated hypokinetic right ventricle. Since
echocardiogram March 2022, there is no significant change.
TTE 03-28-22 CONCLUSIONS: Technically difficult study - Definity used. Normal left ventricular chamber size. Normal left ventricular systolic function. Left ventricular ejection fraction is 70% by Cottrell's Method of Disc. Moderate concentric left
ventricular hypertrophy. Top normal right ventricular size - hypokinetic right ventricular free wall. ICD wire seen in right ventricle. No mitral regurgitation is seen. Structurally normal aortic valve without significant stenosis or regurgitation.
Trace tricuspid regurgitation. Estimated pulmonary artery pressure of 45-50 mmHg assuming a right atrial pressure of 3 mmHg. Structurally normal pulmonic valve without significant stenosis or regurgitation. Normal pericardium and pleura without
evidence of effusion. The aortic root is normal in caliber. The IVC is of normal size and demonstrates normal respiratory variation. Since echocardiogram from 04/2021 the right ventricle is now hypokinetic (mild to moderate hypokinesis)
C 03-30-22
Hemodynamics (mmHg):
RA (m) : 18
RV (s/d) : 78/14
PA (s/d, m) : 75/28, 43
PCWP (m) : 34
Cardiac Output : 6.9 L/min
Cardiac Index : 2.9 L/min/m-2
Pulmonary vascular resistance: 104 [id number]
Systemic vascular resistance: 1123 [id number]
CONCLUSION:
1. Group 2 pulmonary hypertension with elevated left ventricular filling pressures and normal pulmonary artery pressures. No significant transpulmonary gradient
PFT's: 02/22/2021, FEV1 1.07 (35%), FVC 2.19 (52%). Severe obstruction.
Subjective Data
-
Date of Service:
Date of Service: April 06, 2024
Chief Complaint: Pulmonary Follow Up
Subjective:
No major events reported overnight tolerated BiPAP overnight at 12/5
Currently on oxygen 3 L saturation 93%
Chest x-ray today showed persistent right middle lobe atelectasis
Per records, he was on vest therapy earlier this admission but was then discontinued
Review of Systems
General: Fever (n), Sweats (n), Chills (n) and Satisfactory Appetite
Cardiopulmonary: Dyspnea, Cough, Sputum Production (n), Wheezing and Chest Pain (n)
GI: Abdominal Pain (n), Nausea (n) and Vomiting (n)
Neuro: Weakness
Objective Data
Data Reviewed
Vital Signs / I&O / Oxygen:
Vital Signs
Temp Pulse Resp BP Pulse Ox
98.4 F 68 15 115/72 94
04/06/24 03:00 04/06/24 07:29 04/06/24 07:29 04/06/24 06:00 04/06/24 07:29
Intake and Output
04/05/24 04/06/24 04/07/24
06:59 06:59 06:59
Intake Total 400 / 400 600 / 600
Output Total 1250 / 1250 1725 / 1725
Balance -850 / -850 -1125 / -1125
SaO2 94
Nasal Cannula flow liters per 3
minute
Physical Exam
General: Comfortable and Other (NAD)
HEENT: Normocephalic, Anicteric, Moist Mucous Membranes and Other (edentulous)
Cardiovascular: S1-S2, Regular Rhythm and Peripheral Edema (trace LUBA)
Respiratory: Clear (Deferred sounds at right anterior lateral base), Crackles, Non-Labored Respirations and Stridor (n)
GI: Soft, Distended (obese) and Non Tender
Neurology: Awake, Alert, Oriented, AO x 3 and No Motor Deficits
Skin: Warm and Dry
Labs/Micro/Reports
Lab Data
04/05/24 04:55
04/06/24 03:51
Microbiology
03/31/24 15:31 Blood/Venous Blood Culture - Final
No Growth - Final Report
03/31/24 15:31 Blood/Venous Blood Culture - Final
No Growth - Final Report
[2024-04-06] MEDS: LASIX 80 MG IV ×2 (08:26→16:31)
[2024-04-06] MEDS: HEPARIN 5000 UNITS SC ×3 (08:26→23:21)
[2024-04-06] MEDS: PROTONIX 40 MG PO (08:26)
[2024-04-06] MEDS: WELLBUTRIN XL (24 hour extended release) 150 MG PO (08:26)
[2024-04-06] MEDS: IMDUR (EXTENDED RELEASE) 30 MG PO (08:26)
[2024-04-06] MEDS: ASPIR LOW (ENTERIC COATED) 81 MG PO (08:26)
[2024-04-06] MEDS: KCL 40 MEQ PO ×2 (08:26→20:33)
--- NOTE | 2024-04-06 08:35 | PTCARENOTE ---
Patient received from night warehouse manager. Patient resting comfortably in bed. AAO, VSS. Pacemaker/Defibrillator. No events noted over night. No complaints of pain at this time. Currently off BiPAP, 3L N/C. Wore BiPAP for approx. 5-6hrs again
overnight. Scheduled for CXR this AM. Call abdul in reach.
[2024-04-06] MEDS: SODIUM CHLORIDE 3% FOR INHALATION INH (12:55)
[2024-04-06] MEDS: VENTOLIN NEBULES 2.5 MG INH ×2 (14:01→18:16)
[2024-04-06] MEDS: SODIUM CHLORIDE 3% FOR INHALATION 1 VIAL INH ×2 (14:02→18:16)
[2024-04-06] MEDS: NEURONTIN 300 MG PO (20:33)
[2024-04-06] MEDS: MUCINEX 600 MG PO (20:33)
[2024-04-07] VITALS (12 sets, daily range): BP systolic 115–136; BP diastolic 54–91; PULSE 2–72; O2SAT 98; BMI 37.8; BMI 37.1
--- NOTE | 2024-04-07 01:22 | PTCARENOTE ---
Pt c/o itching skin to B/L legs. No redness/rash noted. Lotion applied without relief. Lucero LOPEZ tt'd and order entered for PO Benadryl. Will continue to monitor.
[2024-04-07] MEDS: BENADRYL 25 MG PO (01:25)
[2024-04-07 04:33] LABS: Hemoglobin 10.8 g/dL (13.0-18.0); Mean Corp Hgb Conc. 28.4 g/dL (33.0-37.0); Mean Corpuscular Hgb 23.1 pg (27.0-31.0); Mean Corpuscular Volume 81.2 fL (80.0-94.0); Mean Platelet Volume 10.4 fL (7.4-10.4); Platelet Count 374 10^3/uL (130-400); Red Blood Cell Count 4.68 10^6/uL (4.70-6.10); Red Cell Dist. Width 16.4 % (11.5-14.5); White Blood Cell Count 10.2 10^3/uL (4.8-10.8)
[2024-04-07 04:56] LABS: Blood Urea Nitrogen 50 mg/dl (9-20); Calcium 8.9 mg/dl (8.4-10.2); Chloride 80 mmol/L (98-107); Estimated Creatinine Clearance 49 ml/min; Glucose 114 mg/dl (70-99); Sodium 138 mmol/L (135-145); eGFR 42.57
--- NOTE | 2024-04-07 05:14 | PTCARENOTE ---
Pt continues to wear BIPAP since 0 last night. Offers no c/o pain. VSS. Afebrile. SB/SR/BBB on CM 40-60's. Received relief from itching to LE's after receiving Benadryl. Using urinal at beside. One BM overnight in bathroom. More pleasant and
amenable to plan of care. Call abdul remains within reach. Will continue to monitor.
[2024-04-07 05:19] LABS: Carbon Dioxide 51 mmol/L (22-30)
[2024-04-07] MEDS: NON-FORMULARY ITEM 1 MCG NEB (07:24)
[2024-04-07] MEDS: NON-FORMULARY ITEM 15 MCG INH ×2 (07:24→19:14)
[2024-04-07] MEDS: PULMICORT 0.5 MG INH ×2 (07:25→19:14)
[2024-04-07] MEDS: SODIUM CHLORIDE 3% FOR INHALATION 1 VIAL INH ×4 (07:25→19:14)
[2024-04-07] MEDS: VENTOLIN NEBULES 2.5 MG INH ×4 (07:25→19:14)
--- NOTE | 2024-04-07 08:30 | PTCARENOTE ---
Patient received from transfer station operator. Patient resting comfortably in bed. AAO, VSS. Pacemaker/Defibrillator. No events noted over night. No complaints of pain at this time. Currently off BiPAP, 3L N/C. Wore BiPAP for approx. 7hrs overnight,
increasing time worn. Scheduled for another CXR this AM. Call abdul in reach.
[2024-04-07] MEDS: KCL 40 MEQ PO ×2 (08:31→20:11)
[2024-04-07] MEDS: HEPARIN 5000 UNITS SC ×3 (08:31→23:13)
[2024-04-07] MEDS: PROTONIX 40 MG PO (08:31)
[2024-04-07] MEDS: IMDUR (EXTENDED RELEASE) 30 MG PO (08:31)
[2024-04-07] MEDS: WELLBUTRIN XL (24 hour extended release) 150 MG PO (08:31)
[2024-04-07] MEDS: MUCINEX 600 MG PO ×2 (08:32→20:11)
[2024-04-07] MEDS: LASIX 80 MG IV ×2 (08:32→17:13)
[2024-04-07] MEDS: ASPIR LOW (ENTERIC COATED) 81 MG PO (08:37)
[2024-04-07] MEDS: ZITHROMAX 250 MG PO (08:43)
--- NOTE | 2024-04-07 08:53 | W.PN.CARDCBS ---
Addendum entered and electronically signed by Cedrick Herrera DO 04/07/24 16:52:
.
Bed scale rezeroed and pt also weighed on standing scale and is 243 lbs which is down from yesterday
Continue IV diuresis.
Will hold off on Metolazone at this point.
Original Note:
Today's Communication / Plan
-
Weight is slowly increasing. Bed to be re-zeroed today as his edema is improving as is his cr.
Continue Lasix 80 mg IV twice daily and add Metolazone 2.5 mg X 1 on April 07
Likely change to oral lasix next 24 hrs. Eventual transition to oral Lasix 80 mg p.o. twice daily
Creatinine is stable at 1.7 and appears to be in baseline range.
Impression / Plan
-
.
PCP: Dr. Mariee
Primary Application Support Developer: Dr. Bill
Impression:
Acute on chronic HFpEF
Dietary indiscretion
TME with untreated GUCCI, pt not taking CPAP
CKD 3, baseline appears to be Cre 1.4-1.7
h/o Pancreatic pseudocyst and necrotizing pancreatitis due to gallstone with prolonged hospitalization for multisystem organ failure, vent-dependent respiratory failure at [place] on 2017
history of VT s/p single chamber Medtronic ICD 05/15/18 as secondary prevention for syncope, VT
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
Obstructive sleep apnea, noncompliant w/ CPAP
Noncompliance
Non-obstructive CAD by cath 05/13/18
COPD/obstructive lung disease, oxygen dependent 3 lpm at rest, followed by [facility]
Pulmonary hypertension
Hypertension
Hyperlipidemia
h/o orthostatic hypotension
Osteoarthritis
h/o R subclavian vein DVT after dialysis catheter placement 2018.
h/o calf DVT (?left)
h/o traumatic amputation of R thumb
ECHO 03/28/22: Technically difficult study, Definity used, EF 70%, moderate concentric LVH, hypokinetic RV free wall, PAP 45 to 50 mmHg
ECHO 05/02/23: EF greater than 75%, posterior MAC, thickened mitral valve leaflets, trace MR, mild to moderate TR, PAP 44 mmHg, dilated hypokinetic RV, no significant change compared to prior
Echo 04/01/24: Normal left ventricular chamber size. Mild concentric left ventricular hypertrophy. Hyperdynamic left ventricular systolic function. LV ejection fraction is 65-70% by Cottrell's method of discs. Reduced right ventricular systolic
function. Pacer wire seen in right ventricle. Posterior mitral annular calcification. Mild to moderate tricuspid regurgitation.Estimated pulmonary artery pressure of 45-50 mmHg Assuming a right atrial pressure of 3 mmHg. Normal pericardium without
effusion.The aortic root is of normal size. No significant change compared to 2022 echocardiogram
Plan:
>>Acute on chronic HFpEF
Weight is slowly increasing. Bed to be re-zeroed today as his edema is improving as is his cr.
Continue Lasix 80 mg IV twice daily and add Metolazone 2.5 mg X 1 on April 07
Likely change to oral lasix next 24 hrs. Eventual transition to oral Lasix 80 mg p.o. twice daily
Creatinine is stable at 1.7 and appears to be in baseline range.
EF was preserved by last echo March 2024
Not chronically on BB or HARI/ARB/ARNI with renal insufficiency.
He has previously required midodrine but not currently. BP stable.
Severe GUCCI and noncompliant with CPAP with acute retention of CO2
-COPD, last PFT 2020 with severe obstruction. Pulmonary evaluating. He is on chronic O2.
-Has noncompliance with CPAP; Cont BIPAP as pt will allow. Per pulmonary; He is at high risk of ventilatory failure/vent dependancy
Disscussed with nursing
HPI: Patient came to [facility] today with increased SOB and edema and is now being admitted with acute HF so cardiology has been consulted. Patient has a history of VT s/p ICD, diastolic CHF and pancreatitis. He had gallstone pancreatitis leading to
multisystem organ failure and VDRF 02/2018. He was diagnosed with pancreatic pseudocyst and necrotizing pancreatitis as well. He was treated at [facility]. Then he was admitted to 04/2018 and while here had sustained VT so he had a single chamber
Medtronic ICD placed. Patient has had 2-3 admissions a year for acute HF since 2018, last admission was 04/2023. Since then patient has been doing well taking his outpatient dose of Lasix 80 mg PO BID plus metolazone 2.5 mg daily PRN weight gain.
Patient was seen in the cardiology office for weight gain and acute HF last year and tried to use Furoscix outpatient SQ Lasix device without success. Patient and say that edema started after eating Easter ham about a month ago. He then had ham
leftovers for a week. Then he was eating [place] based salads with crackers and other times eating pretzels. Patient had weight gain and increased edema that his was able to get under control with metolazone x1, but then he continued to eat
crackers and pretzels. His has given him metolazone daily for the last week without diuresis.
Progress Note - Application Support Developer
Subjective
Date of Service: April 07, 2024
Pt seen and examined. No complaints. No chest pain or shortness of breath.
Objective
Labs:
04/07/24 04:11
04/07/24 04:11
Labs
Hgb 10.8 g/dL (13.0-18.0) L 04/07/24 04:11
Hct 38.0 % (39.0-52.0) L 04/07/24 04:11
Plt Count 374 10^3/uL (130-400) 04/07/24 04:11
Sodium 138 mmol/L (135-145) 04/07/24 04:11
Potassium 4.0 mmol/L (3.5-5.1) 04/07/24 04:11
BUN 50 mg/dl (9-20) H 04/07/24 04:11
Creatinine 1.7 mg/dL (0.7-1.3) H 04/07/24 04:11
Glucose 114 mg/dl (70-99) H 04/07/24 04:11
Vital Signs and I&O:
Vital Signs
Temp Pulse Resp BP Pulse Ox
98.0 F 64 17 117/69 93
04/07/24 03:19 04/07/24 08:32 04/07/24 07:34 04/07/24 08:32 04/07/24 07:34
Vital Signs
Temp Pulse Resp BP Pulse Ox
98.0 F 64 17 117/69 93
04/07/24 03:19 04/07/24 08:32 04/07/24 07:34 04/07/24 08:32 04/07/24 07:34
Intake & Output
04/05/24 04/06/24 04/07/24 04/08/24
06:59 06:59 06:59 06:59
Intake Total 400 / 400 600 / 600 920 / 920
Output Total 1250 / 1250 1725 / 1725 1425 / 1425
Balance -850 / -850 -1125 / -1125 -505 / -505
Physical Exam
Physical Exam
General: No acute distress, AAOX3
Neck: Negative JVD
Heart: Regular, Negative S3 positive S1/S2, Negative S4, No murmur
Lungs: CTA b/l, negative wheezes/rales/rhonchi
Abd: Morbid obesity Positive BS, NT/ND, neg rebound/rigidity/guarding
Ext: Negative cyanosis/clubbing/ +1 B/l edema
Neuro: nonfocal
--- NOTE | 2024-04-07 11:25 | CM ---
Patient with Dx Acute on chronic hypoxic and hypercapnic respiratory failure. O2 3L - BiPAP. Receiving IV Lasix. PT/OT recommend HH.
Spoke with Saranya/David; completed home NIV request by faxing back signed NIV Form with pulmonary notes stating med necessity. Per Saranya, the patient needs to arrive home before 2pm on day of discharge in order to for their respiratory therapist
to do setup and teaching.
Plan home with NIV through [facility].
--- NOTE | 2024-04-07 15:03 | W.PN.PUL3 ---
Today's Communication / Plan
-
O2
BPAP qhs
BDs
CPT
VBG in AM to assure pCO2 and pH have stabilized
Assessment
-
69 year old male with a past medical history of COPD, pulmonary hypertension, CHF, V-Tach with defibrillator who presents today for worsening shortness of breathe and lower extremity swelling x 3 weeks. He has not been weighing himself regularly and
states his last weight he took was last Sunday at 256 lbs. Per at bedside, he has been stable at 240lbs last year. He is chronically on 3L O2 which he states he has been wearing daily and at night. He states his pulse ox at home has been
stable in the low 90's. He has been taking 80 mg Lasix BID and metolazone daily for the past 7-8 days without any relief of the LE edema. He also complains of increase in fatigue and need for sleep for the past week. notes that he has not been
compliant with cardiac diet/low salt.
Impression:
AECHF
RML collapse/atelectasis
Acute on chronic hypercarbic respiratory failure
History of noncompliance
Conditions present prior admission:
COVID pneumonia, adm Aug, received dexam/remdesivir
COPD, end stage, on home oxygen 24/7 at 3L of supplemental oxygen, chronic hypoxemia/hypercarbia, chronic elevation of Hgb
Dr. Mars in past
On albuterol HFA, arformoterol, budesonide, revefenacin (yupelri)
PFT 02/22/2021: FEV1 1.07 L - 35%. FVC 2.19 L - 52%-severe airflow obstruction.
RV dysfunction on TTE 03-28-22 as c/w April 2021 (but trace TR)
VBG 04/04/22: pH 7.31/109/34/54.[address] Taiwo Shah at [facility] ([facility] 03-30-22)
Hypertension
Obstructive sleep apnea-AHI 52 events per hour, marginal compliance to CPAP
Chronic kidney disease, temporary placement HD catheter 03-14-18 for MONTSERRAT
Morbid obesity
Ventricular tachycardia status post ICD
Coronary artery disease
Hyperlipidemia
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
Former smoker
Pulmonary hypertension: Likely post capillary/obstructive sleep apnea
New RLE DVT 11-23-21 (negative RLE doppler 11-03-21): ER visit 11-23-21 (no PE on CTA), d/c home on apixaban. Denies prior h/o DVT
Plan
Patient has history of chronic oxygen use
He is on his baseline use of O2
Prior history of lung disease is noted including:
He has history of severe GUCCI and noncompliant with CPAP, last ABG 2 years ago showing Co2 levels are >100.
Had been seeing Dr Mars in past, but notes he now goes to [facility], now follows Dr Taiwo Shah
He has yet to have a follow up sleep study following weight loss per .
COPD, last PFT 2020 with severe obstruction
Suspect patient has underlying acute retention of CO2, causing possible excessive daytime sleepiness
Repeat AB.55 - 76 prior ABG 7.31 - 109
Has noncompliance to CPAP
AHI 50 on last sleep study
BIPAP 12/5 with O2 5L qhs, tolerating well
CXR obtained indicating RML collapse 04-03
New finding, CT confirmed 03-31 as c/w CT 11-23-21
CXR PA/lat 04-06: persistent RML collapse
CXR 04-07 am ordered
If no improvement during this adm, consider outpatient bronchoscopy at [facility] with his barrel rifler broach Dr Taiwo Shah (who is an advanced bronchoscopist)
Resumed VEST 04-06: qid
HS nebs/alb ns qid
Guaifenesin
IS/acapella
Continue revefenacin, arformoterol
LE swelling and SOB noted, CXR reviewed without significant edema
proBNP not significantly elevated
Prior ECHO reviewed, stable function
Diuresis per cards team
He admits to noncompliance with HF regimen
Cards following, on IV lasix
Weight loss measures recommended
Obesity contributing to respiratory symptoms
Outpatient pulmonary FU at [facility] post discharge with Dr Shah
GO discussions would be warranted--family does not wish for hospice -he is actually improving and may be discharged home in the next 1-2 days.
Pulmonary will continue to follow along while he remains inpatient.
Total time spent today was 35 minutes for this encounter. Time includes reviewing laboratory test/imaging results, reviewing pertinent medical records, obtaining and reviewing medical history, performing an appropriate exam, ordering medications,
tests and procedures. Time also includes documentation of this encounter, coordinating patient care and communicating with other healthcare professionals. Total time does not include separately billed tests performed on this date of service.
Family Discussions
Dr Garcia 04/04- had a very carleen conversation with and daughter at bedside and stated very clearly that if he does not use PAP therapy, he will be intubated and/or have tracheostomy placed in the future. was very argumentative about what
other barrel rifler broach have said to them in the past that have contradicted what has been recommended here. Given printed out reports of ABG and VBGs to them. Dr Garcia offered them have any outside barrel rifler broach please call her to discuss his care.
His daughter understands that this is a difficult situation if he does not comply with his care.
His family states he would not be ready for hospice. They state that he will wear PAP every night from now on
Diagnostic Data
CXR 04/03/24- Persistent right middle lobe atelectasis.
CXR 05-01-23 c/w 11-23-21. Baseline poor quality film with limited lung span but no gross infiltrates, L chest AICD. Current film portable with no infiltrates
CXR 03/31/24- 1. Right middle lobe opacity, which may represent pneumonia or atelectasis.
2. No significant pleural effusion on either side.
CT Chest 03/31/24- 1. Complete right middle lobe collapse, new from prior. Difficult to exclude a central obstructing lesion. Consider nonemergent bronchoscopy.
Chest CTA 11-23-21, c/w CT 03-09-18 IMPRESSION: No evidence of pulmonary embolus. Mild lower thoracic spine anterior wedge compression fracture. Stable parenchymal scarring. Stable
LUBA doppler 05-02-23 IMPRESSION:
1. No sonographic evidence for acute lower extremity venous thrombosis.
2. Chronic nonocclusive deep venous thrombosis in the right femoral vein.
LBUA doppler 11-23-21, c/w 11-03-21 IMPRESSION: Findings suggesting acute DVT of the right lower extremity from the mid thigh to and including the right knee. New.
TTE 05-02-23 CONCLUSIONS: Normal left ventricular wall thickness. Normal left ventricular systolic function. Normal left ventricular chamber size. Left ventricular ejection fraction is greater than 75% by Cottrell's method. Normal diastolic
function. Mitral valve opens normally. Posterior mitral annular calcification. Thickened mitral valve leaflets. Trace mitral regurgitation is seen. Trileaflet aortic valve. Thickened calcified aortic valve with adequate leaflet excursion. No
aortic regurgitation is seen. Tricuspid valve opens normally. Mild to moderate tricuspid regurgitation. Estimated pulmonary artery pressure of 44 mmHg, assuming a right atrial pressure of 3 mmHg. Dilated hypokinetic right ventricle. Since
echocardiogram March 2022, there is no significant change.
TTE 03-28-22 CONCLUSIONS: Technically difficult study - Definity used. Normal left ventricular chamber size. Normal left ventricular systolic function. Left ventricular ejection fraction is 70% by Cottrell's Method of Disc. Moderate concentric left
ventricular hypertrophy. Top normal right ventricular size - hypokinetic right ventricular free wall. ICD wire seen in right ventricle. No mitral regurgitation is seen. Structurally normal aortic valve without significant stenosis or regurgitation.
Trace tricuspid regurgitation. Estimated pulmonary artery pressure of 45-50 mmHg assuming a right atrial pressure of 3 mmHg. Structurally normal pulmonic valve without significant stenosis or regurgitation. Normal pericardium and pleura without
evidence of effusion. The aortic root is normal in caliber. The IVC is of normal size and demonstrates normal respiratory variation. Since echocardiogram from 04/2021 the right ventricle is now hypokinetic (mild to moderate hypokinesis)
[facility] 03-30-22
Hemodynamics (mmHg):
RA (m) : 18
RV (s/d) : 78/14
PA (s/d, m) : 75/28, 43
PCWP (m) : 34
Cardiac Output : 6.9 L/min
Cardiac Index : 2.9 L/min/m-2
Pulmonary vascular resistance: 104 [id number]
Systemic vascular resistance: 1123 [id number]
CONCLUSION:
1. Group 2 pulmonary hypertension with elevated left ventricular filling pressures and normal pulmonary artery pressures. No significant transpulmonary gradient
PFT's: 02/22/2021, FEV1 1.07 (35%), FVC 2.19 (52%). Severe obstruction.
Subjective Data
-
Date of Service:
Date of Service: April 07, 2024
Chief Complaint: Pulmonary Follow Up
Subjective:
Patient seen and evaluated today at bedside. at bedside as well. Patient currently on 3 L/min nasal cannula saturating 93%. He wore BiPAP overnight on 10/23 bled with 3 L/min. He denies any chest pain, fevers or chills. He says that he has
minimal secretions and it is not bothersome.
Review of Systems
General: Other (Negative unless mentioned above)
Objective Data
Data Reviewed
Vital Signs / I&O / Oxygen:
Vital Signs
Temp Pulse Resp BP Pulse Ox
98.7 F 71 16 117/69 95
04/07/24 11:25 04/07/24 11:23 04/07/24 11:23 04/07/24 08:32 04/07/24 11:23
Intake and Output
04/06/24 04/07/24 04/08/24
06:59 06:59 06:59
Intake Total 600 / 600 920 / 920 240 / 240
Output Total 1725 / 1725 1425 / 1425 200 / 200
Balance -1125 / -1125 -505 / -505 40 / 40
SaO2 95
Nasal Cannula flow liters per 3
minute
Physical Exam
General: Respiratory Distress (negative), Comfortable and Other (NAD)
HEENT: Normocephalic, Anicteric and Other (edentulous)
Cardiovascular: Peripheral Edema (negative), Other and Other (Distant heart sounds)
Respiratory: Wheeze (Negative), Crackles (Bilaterally), Rhonchi (Negative), Non-Labored Respirations, Stridor (n) and Other (Reduced breath sounds bilaterally)
GI: Soft, Distended (obese), Non Tender and Normal Bowel Sounds
Neurology: AO x 3 and No Motor Deficits
Skin: Warm, Dry and Other (RLE varicose veins)
Labs/Micro/Reports
Lab Data
04/07/24 04:11
04/07/24 04:11
Microbiology
03/31/24 15:31 Blood/Venous Blood Culture - Final
No Growth - Final Report
03/31/24 15:31 Blood/Venous Blood Culture - Final
No Growth - Final Report
--- NOTE | 2024-04-07 18:03 | W.PN.HOSP.TC ---
Today's Communication/Plan
-
Continue IV diuresis for another 24 hours transition to oral Lasix on 04/08
CPAP at night
Outpatient set up for trilogy/NIV upon discharge.
Physical therapy assessment
Assessment / Plan
Assessment / Plan
Impression:
Acute on chronic hypoxic/hypercarbic respiratory failure.
Acute CHF preserved EF.
Toxic metabolic encephalopathy secondary to hypercarbia.
CKD stage III with baseline creatinine 1.4�1.7
Obstructive sleep apnea noncompliant with CPAP.
Medication noncompliance.
COPD/obstructive sleep apnea
Pulmonary hypertension
Essential hypertension
Dyslipidemia
Obesity with BMI of 37
Osteoarthritis.
History of upper/lower extremity DVT.
Plan
# Toxic metabolic encephalopathy
Patient became more drowsy,dysarthria, asterixis and less responsive. Nurses: suspected stroke. Stroke alert was called on 04/03. Patient was immediately evaluated by neurologist/stat imaging studies of the head did not show acute finding.
Neurologist recommended to continue to treat CO2 narcosis.
Patient was moved to IMU and was placed on BiPAP therapy
Of note, patient was having lethargy and asterixis at home also but refusing BiPAP therapy despite recommendations and counseling.
#Acute on chronic hypoxic and hypercapnic respiratory failure
History of obstructive sleep apnea/pulmonary hypertension/acute on chronic heart failure with preserved ( diastolic)ejection fraction/weight gain-obesity/noncompliant to his CPAP although he reported he was trying to use it more than before (patient
reported intolerance to CPAP)
Decompensation secondary to worsening all the above
Reported being compliant with BiPAP over the last 48 hours.
Continue with oxygen therapy but avoid CO2 retention. Admission Pro-BNP 370.
No indication for antibiotics.
Weight is unchanged. Less edema in legs, less scrotal swelling.
Monitor renal function while on aggressive diuretic therapy. Creatinine at 1.8 today( same as yesterday). Driver Material Handler felt it was within normal range for the pt. Bladder scan done : no retention.
Counseling to lose weight and use medications/use of BIpap- CPAP was done
Continue inhalation therapy ( pt brought his own inhalers)
CT of the chest showed Complete right middle lobe collapse, new from prior. Difficult to exclude a central obstructing lesion. Consider nonemergent bronchoscopy. d/w pulmonary, recommended Bipap but pt refused.
Blood culture x 2 NGTD
Primary talent acquisition lead with [facility]/Dr. Shah. I left her messages with staff but did not receive a call back. He saw Dr. Mars in the past.
Recent echo in April 2023 showed LVEF 75%/trace MR/mild to moderate TR with elevated pulmonary artery pressure at 44 mmHg. Repeat echo 04/01/2024 showed LV EF 65 to 70%, reduced right ventricular systolic function, mild to moderate TR, estimated
pulmonary arterial pressure of 45 - 50 mmHg.
Primary biomedical equipment technician Dr. Bill
Might need to repeat right heart catheterization, defer decision to response to diuretic treatment and further evaluation
Appreciate pulmonary and cardiology input
# hypokalemia, K at 3.6
Increased KCl to 40 [place] BID.
# Obesity
# Obstructive sleep apnea
Non compliant to C pap, intolerant
# Chronic kidney disease stage IIIb
Creatinine 1.8 today
No renal colic or dysuria. No hematuria. Monitor renal function while on diuretics
Renal US No hydronephrosis on either side. Renal Cortical atrophy suggestive of medical renal disease.
# Primary hypertension
AM BP today 137/64
# History of orthostatic hypotension
# History of right subclavian DVT after dialysis catheter placement 2018
# History of VT status post single-chamber Medtronic ICD in 2018
Episodes of bradycardia, appreciate cardiology help.
# History of polycythemia vera. Hemoglobin at 11
# DVT prophylaxis
Total time spent to see the patient, examine the patient on the floor, review data and lab results, discuss treatment plan with patient, and nursing staff around 55 minutes
Anticipated Discharge: 24 - 48 hours
Subjective/Interval History
-
Date of Service: April 07, 2024
Objective Data
-
Vital Signs:
Vital Signs
Temp Pulse Resp BP Pulse Ox
98.7 F 77 16 125/91 94
04/07/24 11:25 04/07/24 17:13 04/07/24 16:19 04/07/24 17:13 04/07/24 16:19
I&O
04/06/24 04/07/24 04/08/24
06:59 06:59 06:59
Intake Total 600 / 600 920 / 920 240 / 240
Output Total 1725 / 1725 1425 / 1425 200 / 200
Balance -1125 / -1125 -505 / -505 40 / 40
[2024-04-07] MEDS: NEURONTIN 300 MG PO (22:08)
[2024-04-08] VITALS: BP 133/74
--- NOTE | 2024-04-08 02:27 | PTCARENOTE ---
Pt agreeable to wear CPAP at HS. Pt tolerating well. Pt HR israel in to the 40's when sleeping pacer glalegos seen. Pt asymptomatic when awoken for scheduled vitals. Pt has no complaints at this time. Call abdul within reach. Assessment vitas and care as
charted.
--- NOTE | 2024-04-08 02:30 | PTCARENOTE ---
Addendum entered by Margarita Mejía RN 04/08/24 05:31:
Pt requesting to come off Bipap at 0530. Total time on BiPAP totaling around 4 hours.
Original Note:
Pt agreeable to wear BiPAP at HS. Pt tolerating well. Pt HR israel in to the 40's when sleeping pacer gallegos seen. Pt asymptomatic when awoken for scheduled vitals. Pt has no complaints at this time. Call abdul within reach. Assessment vitas and care
as charted.
[2024-04-08 03:40] VITALS: BMI 37.3
[2024-04-08 04:00] VITALS: BP 136/67
[2024-04-08 05:22] LABS: Venous Blood Gas B.E. 26.2 mmol/L (-4 to +4); Venous Blood Gas HCO3 55.1 mmol/L (22-27); Venous Blood Gas O2 Sat % 95.9 %; Venous Blood Gas pH 7.43 (7.32-7.43); Venous Blood Gas pO2 80 mmHg (30-50)
[2024-04-08 05:25] LABS: Venous Blood Gas pCO2 83 mmHg (35-48)
[2024-04-08] MEDS: PULMICORT 0.5 MG INH (07:38)
[2024-04-08] MEDS: NON-FORMULARY ITEM 175 MCG NEB (07:38)
[2024-04-08] MEDS: SODIUM CHLORIDE 3% FOR INHALATION 1 VIAL INH ×2 (07:38→11:35)
[2024-04-08] MEDS: VENTOLIN NEBULES 2.5 MG INH ×2 (07:38→11:35)
[2024-04-08] MEDS: NON-FORMULARY ITEM 15 MCG INH (07:39)
[2024-04-08 08:01] VITALS: BP 142/62
[2024-04-08] MEDS: IMDUR (EXTENDED RELEASE) 30 MG PO (09:02)
[2024-04-08] MEDS: MUCINEX 600 MG PO (09:02)
[2024-04-08] MEDS: PROTONIX 40 MG PO (09:02)
[2024-04-08] MEDS: WELLBUTRIN XL (24 hour extended release) 150 MG PO (09:02)
[2024-04-08] MEDS: LASIX 80 MG IV (09:03)
[2024-04-08] MEDS: KCL 40 MEQ PO (09:03)
[2024-04-08] MEDS: ASPIR LOW (ENTERIC COATED) 81 MG PO (09:04)
[2024-04-08] MEDS: HEPARIN 5000 UNITS SC (09:04)
[2024-04-08 09:44] VITALS: BMI 37.3
--- NOTE | 2024-04-08 10:30 | W.DS.TRANS ---
DC Summary - Continuous Improvement Engineer
-
Discharge Instructions:
Discharge Diagnosis/Procedures Acute on chronic hypoxic/hypercarbic respiratory
failure.
Acute CHF preserved EF.
Toxic metabolic encephalopathy secondary to
hypercarbia.
CKD stage III with baseline creatinine 1.4�1.7
Obstructive sleep apnea noncompliant with CPAP.
Medication noncompliance.
COPD/obstructive sleep apnea
Pulmonary hypertension
Essential hypertension
Dyslipidemia
Obesity with BMI of 37
Osteoarthritis.
History of upper/lower extremity DVT.
Diet 2 Gram Sodium
Instructions: *[facility] Heart Failure Instructions
Stand-Alone Forms:
Changes to Home Medications: No
Discharge Medications:
DC Medications w/original date entered in [employer]
bupropion HCl 300 mg 24 hr tablet, extended release 300 mg PO DAILY Depression 05/25/20
isosorbide mononitrate 30 mg tablet,extended release 24 hr 30 mg PO DAILY Heart disease/condition 05/25/20
albuterol sulfate 2.5 mg/3 mL (0.083 %) solution for nebulization 2.5 mg inhalation R Q4HPRN PRN shortness of breath 03/30/22
arformoterol 15 mcg/2 mL solution for nebulization (Brovana) 15 mcg IH R BID COPD 03/30/22
budesonide 0.5 mg/2 mL suspension for nebulization (Pulmicort) 0.5 mg IH R BID COPD 03/30/22
revefenacin 175 mcg/3 mL solution for nebulization (Yupelri) 175 mcg IH R DAILY@1200 COPD 03/30/22
aspirin 81 mg tablet,delayed release 81 mg PO DAILY Blood Clot Prevention/Tx 05/01/23
furosemide 80 mg tablet 80 mg PO BID@0800,1600 Fluid Retention/Swelling 05/01/23
potassium chloride 20 mEq tablet,extended release(part/cryst) (Klor-Con M) 20 meq PO BID Electrolyte Repletion 05/01/23
metolazone 2.5 mg tablet 2.5 mg PO DAILYPRN PRN weight gain #5 tabs 06/14/23
azithromycin 250 mg tablet 250 mg PO MOWEFR Lung/Breathing Issues 03/31/24
cholecalciferol (vitamin D3) 50 mcg (2,000 unit) capsule (Vitamin D3) 50 mcg PO DAILY Supplement 03/31/24
gabapentin 300 mg capsule 300 mg PO HS Pain 03/31/24
krill 500 mg-omega 3 115 mg-dha 30 mg-epa 64 [id number] capsule 1 cap PO DAILY Supplement 03/31/24
omeprazole 40 mg capsule,delayed release 40 mg PO DAILY Gastrointestinal Issue 03/31/24
Home Medication Changes
Pending Results: No
--- NOTE | 2024-04-08 11:17 | W.PN.CARDCBS ---
Today's Communication / Plan
-
Stable cardiology status for discharge to long term facility on oral diuretics
Impression / Plan
-
.
PCP: Dr. Mariee
Primary Conveyor Operator: Dr. Bill
Impression:
Acute on chronic HFpEF
Dietary indiscretion
TME with untreated GUCCI, pt not taking CPAP
CKD 3, baseline appears to be Cre 1.4-1.7
h/o Pancreatic pseudocyst and necrotizing pancreatitis due to gallstone with prolonged hospitalization for multisystem organ failure, vent-dependent respiratory failure at [facility] on 2018
history of VT s/p single chamber Medtronic ICD 05/15/18 as secondary prevention for syncope, VT
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
Obstructive sleep apnea, noncompliant w/ CPAP
Noncompliance
Non-obstructive CAD by cath 05/13/18
COPD/obstructive lung disease, oxygen dependent 3 lpm at rest, followed by [facility]
Pulmonary hypertension
Hypertension
Hyperlipidemia
h/o orthostatic hypotension
Osteoarthritis
h/o R subclavian vein DVT after dialysis catheter placement 2018.
h/o calf DVT (?left)
h/o traumatic amputation of R thumb
ECHO 03/28/22: Technically difficult study, Definity used, EF 70%, moderate concentric LVH, hypokinetic RV free wall, PAP 45 to 50 mmHg
ECHO 05/02/23: EF greater than 75%, posterior MAC, thickened mitral valve leaflets, trace MR, mild to moderate TR, PAP 44 mmHg, dilated hypokinetic RV, no significant change compared to prior
Echo 04/01/24: Normal left ventricular chamber size. Mild concentric left ventricular hypertrophy. Hyperdynamic left ventricular systolic function. LV ejection fraction is 65-70% by Cottrell's method of discs. Reduced right ventricular systolic
function. Pacer wire seen in right ventricle. Posterior mitral annular calcification. Mild to moderate tricuspid regurgitation.Estimated pulmonary artery pressure of 45-50 mmHg Assuming a right atrial pressure of 3 mmHg. Normal pericardium without
effusion.The aortic root is of normal size. No significant change compared to 2022 echocardiogram
Plan:
Volume status is difficult but likely euvolemic on oral diuretics with stable creatinine of 1.7 on 04/07
On normal 3 L of oxygen that he is on as an outpatient
Stable cardiology status for transfer to long term facility
Will arrange follow-up
Will sign off, call with questions
HPI: [facility] with increased SOB and edema and is now being admitted with acute HF so cardiology has been consulted. Patient has a history of VT s/p ICD, diastolic CHF and pancreatitis. He had gallstone pancreatitis leading to
multisystem organ failure and VDRF 02/2018. He was diagnosed with pancreatic pseudocyst and necrotizing pancreatitis as well. He was treated at [facility]. Then he was admitted to 04/2018 and while here had sustained VT so he had a single chamber
Medtronic ICD placed. Patient has had 2-3 admissions a year for acute HF since 2018, last admission was 04/2023. Since then patient has been doing well taking his outpatient dose of Lasix 80 mg PO BID plus metolazone 2.5 mg daily PRN weight gain.
Patient was seen in the cardiology office for weight gain and acute HF last year and tried to use Furoscix outpatient SQ Lasix device without success. Patient and say that edema started after eating Easter ham about a month ago. He then had ham
leftovers for a week. Then he was eating [employer] salads with crackers and other times eating pretzels. Patient had weight gain and increased edema that his was able to get under control with metolazone x1, but then he continued to eat
crackers and pretzels. His has given him metolazone daily for the last week without diuresis.
Progress Note - Conveyor Operator
Subjective
Date of Service: April 08, 2024
No complaints.
Objective
Labs:
04/07/24 04:11
04/07/24 04:11
Labs
Hgb 10.8 g/dL (13.0-18.0) L 04/07/24 04:11
Hct 38.0 % (39.0-52.0) L 04/07/24 04:11
Plt Count 374 10^3/uL (130-400) 04/07/24 04:11
Sodium 138 mmol/L (135-145) 04/07/24 04:11
Potassium 4.0 mmol/L (3.5-5.1) 04/07/24 04:11
BUN 50 mg/dl (9-20) H 04/07/24 04:11
Creatinine 1.7 mg/dL (0.7-1.3) H 04/07/24 04:11
Glucose 114 mg/dl (70-99) H 04/07/24 04:11
Vital Signs and I&O:
Vital Signs
Temp Pulse Resp BP Pulse Ox
97.4 F 77 16 142/62 95
04/08/24 07:05 04/08/24 10:00 04/08/24 07:44 04/08/24 08:01 04/08/24 08:00
Vital Signs
Temp Pulse Resp BP Pulse Ox
97.4 F 77 16 142/62 95
04/08/24 07:05 04/08/24 10:00 04/08/24 07:44 04/08/24 08:01 04/08/24 08:00
Intake & Output
04/06/24 04/07/24 04/08/24 04/09/24
06:59 06:59 06:59 06:59
Intake Total 600 / 600 920 / 920 915 / 915 720 / 720
Output Total 1725 / 1725 1425 / 1425 1475 / 1475 550 / 550
Balance -1125 / -1125 -505 / -505 -560 / -560 170 / 170
Physical Exam
Physical Exam
General: Well developed, well nourished in NAD.
Neck: Supple, no JVD, HJR, carotids +2 B/L, no bruits bilaterally.
Heart: Non displaced PMI, RRR, no murmurs, No S3, S4, no rubs.
Lungs: scattered rhonchi
Extremities: No clubbing, cyanosis or edema bilaterally.
Neuro: Grossly nonfocal, awake, alert and oriented x3.
[2024-04-08 12:13] VITALS: BP 132/62
--- NOTE | 2024-04-08 12:27 | W.PN.PUL3 ---
Today's Communication / Plan
-
O2
BPAP qhs
BDs
CPT
VBG this AM shows stable hypercapnea
Patient being prepared for discharge. Pulmonary service will now sign off. Thank you for allowing us to be involved in the care of this patient. Please reconsult if there are any additional questions/concerns, or if patient's respiratory status
deteriorates.
Assessment
-
69 year old male with a past medical history of COPD, pulmonary hypertension, CHF, V-Tach with defibrillator who presents today for worsening shortness of breathe and lower extremity swelling x 3 weeks. He has not been weighing himself regularly and
states his last weight he took was last Sunday at 256 lbs. Per at bedside, he has been stable at 240lbs last year. He is chronically on 3L O2 which he states he has been wearing daily and at night. He states his pulse ox at home has been
stable in the low 90's. He has been taking 80 mg Lasix BID and metolazone daily for the past 7-8 days without any relief of the LE edema. He also complains of increase in fatigue and need for sleep for the past week. notes that he has not been
compliant with cardiac diet/low salt.
Impression:
AECHF
RML collapse/atelectasis
Acute on chronic hypercarbic respiratory failure
History of noncompliance
Conditions present prior admission:
COVID pneumonia, adm Aug, received dexam/remdesivir
COPD, end stage, on home oxygen / at 3L of supplemental oxygen, chronic hypoxemia/hypercarbia, chronic elevation of Hgb
Dr. Mars in past
On albuterol HFA, arformoterol, budesonide, revefenacin (yupelri)
PFT 02/22/2021: FEV1 1.07 L - 35%. FVC 2.19 L - 52%-severe airflow obstruction.
RV dysfunction on TTE 03-28-22 as c/w April 2021 (but trace TR)
VBG 04/04/22: pH 7.31/109/34/54.[address] Taiwo Shah at [facility]pEF ([facility] 03-30-22)
Hypertension
Obstructive sleep apnea-AHI 52 events per hour, marginal compliance to CPAP
Chronic kidney disease, temporary placement HD catheter 03-14-18 for MONTSERRAT
Morbid obesity
Ventricular tachycardia status post ICD
Coronary artery disease
Hyperlipidemia
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
Former smoker
Pulmonary hypertension: Likely post capillary/obstructive sleep apnea
New RLE DVT 11-23-21 (negative RLE doppler 11-03-21): ER visit 11-23-21 (no PE on CTA), d/c home on apixaban. Denies prior h/o DVT
Plan
Patient has history of chronic oxygen use
He is on his baseline use of O2
Prior history of lung disease is noted including:
He has history of severe GUCCI and noncompliant with CPAP, last ABG 2 years ago showing Co2 levels are >100.
Had been seeing Dr Mars in past, but notes he now goes to [facility], now follows Dr Taiwo Shah
He has yet to have a follow up sleep study following weight loss per .
COPD, last PFT 2020 with severe obstruction
Suspect patient has underlying acute retention of CO2, causing possible excessive daytime sleepiness
Repeat AB.55 - 76 prior ABG 7.31 - 109
Has noncompliance to CPAP
AHI 50 on last sleep study
BIPAP 12/5 with O2 5L qhs, tolerating well
CXR obtained indicating RML collapse 04-03
New finding, CT confirmed 03-31 as c/w CT 11-23-21
CXR PA/lat 04-06: persistent RML collapse
CXR 05-20 am ordered
If no improvement during this adm, consider outpatient bronchoscopy at [facility] with his plug machine operator Dr Taiwo Shah (who is an advanced bronchoscopist)
Resumed VEST 04-06: qid
HS nebs/alb ns qid
Guaifenesin
IS/acapella
Continue revefenacin, arformoterol
LE swelling and SOB noted, CXR reviewed without significant edema
proBNP not significantly elevated
Prior ECHO reviewed, stable function
Diuresis per cards team
He admits to noncompliance with HF regimen
Cards following, on IV lasix
Weight loss measures recommended
Obesity contributing to respiratory symptoms
Outpatient pulmonary FU at [facility] post discharge with Dr Shah
Patient being prepared for discharge. Pulmonary service will now sign off. Thank you for allowing us to be involved in the care of this patient. Please reconsult if there are any additional questions/concerns, or if patient's respiratory status
deteriorates.
Total time spent today was 25 minutes for this encounter. Time includes reviewing laboratory test/imaging results, reviewing pertinent medical records, obtaining and reviewing medical history, performing an appropriate exam, ordering medications,
tests and procedures. Time also includes documentation of this encounter, coordinating patient care and communicating with other healthcare professionals. Total time does not include separately billed tests performed on this date of service.
Family Discussions
Dr Garcia 04/04- had a very carleen conversation with and daughter at bedside and stated very clearly that if he does not use PAP therapy, he will be intubated and/or have tracheostomy placed in the future. was very argumentative about what
other plug machine operator have said to them in the past that have contradicted what has been recommended here. Given printed out reports of ABG and VBGs to them. Dr Garcia offered them have any outside plug machine operator please call her to discuss his care.
His daughter understands that this is a difficult situation if he does not comply with his care.
His family states he would not be ready for hospice. They state that he will wear PAP every night from now on
Diagnostic Data
CXR 04/03/24- Persistent right middle lobe atelectasis.
CXR 05-01-23 c/w 11-23-21. Baseline poor quality film with limited lung span but no gross infiltrates, L chest AICD. Current film portable with no infiltrates
CXR 03/31/24- . Right middle lobe opacity, which may represent pneumonia or atelectasis.
2. No significant pleural effusion on either side.
CT Chest 03/31/24- . Complete right middle lobe collapse, new from prior. Difficult to exclude a central obstructing lesion. Consider nonemergent bronchoscopy.
Chest CTA 11-23-21, c/w CT 03-09-18 IMPRESSION: No evidence of pulmonary embolus. Mild lower thoracic spine anterior wedge compression fracture. Stable parenchymal scarring. Stable
LUBA doppler 05-02-23 IMPRESSION:
1. No sonographic evidence for acute lower extremity venous thrombosis.
2. Chronic nonocclusive deep venous thrombosis in the right femoral vein.
LUBA doppler 11-23-21, c/w 11-03-21 IMPRESSION: Findings suggesting acute DVT of the right lower extremity from the mid thigh to and including the right knee. New.
TTE 05-02-23 CONCLUSIONS: Normal left ventricular wall thickness. Normal left ventricular systolic function. Normal left ventricular chamber size. Left ventricular ejection fraction is greater than 75% by Cottrell's method. Normal diastolic
function. Mitral valve opens normally. Posterior mitral annular calcification. Thickened mitral valve leaflets. Trace mitral regurgitation is seen. Trileaflet aortic valve. Thickened calcified aortic valve with adequate leaflet excursion. No
aortic regurgitation is seen. Tricuspid valve opens normally. Mild to moderate tricuspid regurgitation. Estimated pulmonary artery pressure of 44 mmHg, assuming a right atrial pressure of 3 mmHg. Dilated hypokinetic right ventricle. Since
echocardiogram March 2022, there is no significant change.
TTE 03-28-22 CONCLUSIONS: Technically difficult study - Definity used. Normal left ventricular chamber size. Normal left ventricular systolic function. Left ventricular ejection fraction is 70% by Cottrell's Method of Disc. Moderate concentric left
ventricular hypertrophy. Top normal right ventricular size - hypokinetic right ventricular free wall. ICD wire seen in right ventricle. No mitral regurgitation is seen. Structurally normal aortic valve without significant stenosis or regurgitation.
Trace tricuspid regurgitation. Estimated pulmonary artery pressure of 45-50 mmHg assuming a right atrial pressure of 3 mmHg. Structurally normal pulmonic valve without significant stenosis or regurgitation. Normal pericardium and pleura without
evidence of effusion. The aortic root is normal in caliber. The IVC is of normal size and demonstrates normal respiratory variation. Since echocardiogram from 04/2021 the right ventricle is now hypokinetic (mild to moderate hypokinesis)
[facility] 03-30-22
Hemodynamics (mmHg):
RA (m) : 18
RV (s/d) : 78/14
PA (s/d, m) : 75/28, 43
PCWP (m) : 34
Cardiac Output : 6.9 L/min
Cardiac Index : 2.9 L/min/m-2
Pulmonary vascular resistance: 104 [id number]
Systemic vascular resistance: 1123 [id number]
CONCLUSION:
1. Group 2 pulmonary hypertension with elevated left ventricular filling pressures and normal pulmonary artery pressures. No significant transpulmonary gradient
PFT's: 02/22/2021, FEV1 1.07 (35%), FVC 2.19 (52%). Severe obstruction.
Subjective Data
-
Date of Service:
Date of Service: April 08, 2024
Chief Complaint: Pulmonary Follow Up
Subjective:
Patient seen and evaluated today. He is doing well, eager to go home. No acute support overnight. No chest pain, fevers or chills.
Review of Systems
General: Other (Negative unless mentioned above)
Objective Data
Data Reviewed
Vital Signs / I&O / Oxygen:
Vital Signs
Temp Pulse Resp BP Pulse Ox
98.2 F 73 18 132/62 97
04/08/24 11:30 04/08/24 11:39 04/08/24 11:39 04/08/24 12:13 04/08/24 11:39
Intake and Output
04/07/24 04/08/24 04/09/24
06:59 06:59 06:59
Intake Total 920 / 920 915 / 915 720 / 720
Output Total 1425 / 1425 1475 / 1475 550 / 550
Balance -505 / -505 -560 / -560 170 / 170
SaO2 97
Nasal Cannula flow liters per 3
minute
Physical Exam
General: Respiratory Distress (negative), Comfortable and Other (NAD)
HEENT: Normocephalic, Anicteric and Other (edentulous)
Cardiovascular: Peripheral Edema (negative), Other and Other (Distant heart sounds)
Respiratory: Wheeze (Negative), Crackles (Bilaterally), Rhonchi (Negative), Non-Labored Respirations, Stridor (n) and Other (Reduced breath sounds bilaterally)
GI: Soft, Distended (obese), Non Tender and Normal Bowel Sounds
Neurology: AO x 3 and No Motor Deficits
Skin: Warm, Dry and Other (RLE varicose veins)
Labs/Micro/Reports
Lab Data
04/07/24 04:11
04/07/24 04:11
Microbiology
03/31/24 15:31 Blood/Venous Blood Culture - Final
No Growth - Final Report
03/31/24 15:31 Blood/Venous Blood Culture - Final
No Growth - Final Report
--- NOTE | 2024-04-08 15:10 | W.HF.CON ---
Heart Failure
- LV Function
Left ventricular function study result: LV Ejection fraction >40%
Ejection Fraction Percentage: 65-70
- ARNI
Patient already on ARNI: No
Heart Failure ARNI Not Indicated: LV Ejection Fraction >/= 40%
- ACEI/ARB
Patient already on ACEI/ARB: No
Heart Failure ACEI/ARB Not Indicated: LV Ejection Fraction > 40%
- Beta Autumn
Patient already on Evidence Based Beta Autumn: No
Heart Failure Evidence Based Beta Autumn Not Indicated: LV Ejection Fraction > 40%
- Mineralocorticord Receptor Antagonist
Patient already on MRA: No
Heart Failure MRA Not Indicated: LV Ejection Fraction > 40%
- SGLT-2 Inhibitor
Patient already on SGLT-2 Inhibitor: No
Heart Failure SGLT-2 Inhibitor Not Indicated: LV Ejection Fraction >40%
- NYHA CHF Classification
NYHA CHF Classification Level: Class III - Symptoms w/ min exertion, interferes w/ nml daily activity (COPD)
- ACC/AHA Stage
ACC/AHA Stage: Stage C: Symptomatic Heart Failure
--- NOTE | 2024-04-08 17:37 | CM ---
Patient with Dx Acute on chronic hypoxic and hypercapnic respiratory failure. O2 3L - BiPAP. PT; no needs. OT recommends HH.
Met with patient and ; both agree to d/c home today with the NIV setup. IMM completed. They are aware that they need to arrive home by 2pm- they had a phone call from [facility] who is coordinating the delivery & setup of the NIV. Transport home
with .
Plan home today with NIV through [employer].
== END 2024-04-08 13:33 | disposition home health service (06) | DRG 291 ==
LOC: IMU 13:45
PROVIDERS: Internal Medicine Cardiovascular Disease; Internal Medicine Critical Care Medicine; Physician Assistant; Physician Assistant Medical; ADMITTING PHYSICIAN Internal Medicine; ATTENDING PHYSICIAN Internal Medicine; CONSULT PHYSICIAN Internal Medicine; CONSULT PHYSICIAN Nuclear Medicine Nuclear Cardiology; CONSULT PHYSICIAN Student in an Organized Health Care Education/Training Program; EMERGENCY PHYSICIAN Emergency Medicine; FAMILY PHYSICIAN Family Medicine; OTHER PHYSICIAN Student in an Organized Health Care Education/Training Program
PROC: 5A09357 Assistance with Respiratory Ventilation, Less than 24 Consecutive Hours, Continuous Positive Airway Pressure (ICD-10-PCS; 2024-04-01)
DX: I13.0 Hypertensive heart and chronic kidney disease with heart failure and stage 1 through stage 4 chronic kidney disease, or unspecified chronic kidney disease (principal); G92.8 Other toxic encephalopathy; I50.33 Acute on chronic diastolic (congestive) heart failure; J96.21 Acute and chronic respiratory failure with hypoxia; J96.22 Acute and chronic respiratory failure with hypercapnia; J44.0 Chronic obstructive pulmonary disease with (acute) lower respiratory infection; J90 Pleural effusion, not elsewhere classified; J98.11 Atelectasis; E78.00 Pure hypercholesterolemia, unspecified; G47.33 Obstructive sleep apnea (adult) (pediatric); N18.32 Chronic kidney disease, stage 3b; E66.01 Morbid (severe) obesity due to excess calories; E87.6 Hypokalemia; I95.1 Orthostatic hypotension; D45 Polycythemia vera; F32.A Depression, unspecified; M19.90 Unspecified osteoarthritis, unspecified site; I25.10 Atherosclerotic heart disease of native coronary artery without angina pectoris; I27.22 Pulmonary hypertension due to left heart disease; I08.3 Combined rheumatic disorders of mitral, aortic and tricuspid valves; Z99.81 Dependence on supplemental oxygen; Z87.891 Personal history of nicotine dependence; Z79.51 Long term (current) use of inhaled steroids; Z79.52 Long term (current) use of systemic steroids; Z79.82 Long term (current) use of aspirin; Z68.37 Body mass index [BMI] 37.0-37.9, adult; Z91.199 Patient's noncompliance with other medical treatment and regimen due to unspecified reason; Z86.718 Personal history of other venous thrombosis and embolism; Z95.810 Presence of automatic (implantable) cardiac defibrillator; Z91.148 Patient's other noncompliance with medication regimen for other reason; Z88.0 Allergy status to penicillin; Z86.16 Personal history of COVID-19; Z87.01 Personal history of pneumonia (recurrent)
CPT/HCPCS: 36600; 70450; 70496; 70498; 71045; 71046; 71250; 76770; 80048; 80053; 80061; 81003; 81015; 82805; 82962; 83690; 83735; 83880; 84443; 85025; 85027; 87040; 93005; 93306; 93970; 94640; 94660; 94669; 96374; 97116; 97162; 97166; 97530; 97535; 99285; Q9950; Q9967

== ENCOUNTER 2024-04-25 23:35 | Inpatient (IN) | payer MEDICARE, OTHER, SELFPAY ==
[2024-04-25] VITALS (10 sets, daily range): BP systolic 91–113; BP diastolic 64–74
[2024-04-25] MEDS: CORDARONE 103 MG IV (23:00)
[2024-04-25 23:06] LABS: % Basophils 0.6 % (0-2); % Immature Granulocytes 0.8 % (0-0.5); % Lymphocytes 6.9 % (20.5-51.1); % Monocytes 4.4 % (1.7-9.3); % Neutrophils 87.3 % (42.2-75.2); Absolute Basophils 0.1 10^3/uL (0-0.2); Absolute Immature Granulocytes 0.1 10^3/uL (0-0.05); Absolute Lymphocytes 0.7 10^3/uL (1.2-3.4); Absolute Monocytes 0.5 10^3/uL (0.1-0.6); Absolute Neutrophils 9.4 10^3/uL (1.4-6.5); Hematocrit 48.1 % (39.0-52.0); Hemoglobin 13.8 g/dL (13.0-18.0); Mean Corp Hgb Conc. 28.7 g/dL (33.0-37.0); Mean Corpuscular Hgb 22.7 pg (27.0-31.0); Mean Corpuscular Volume 79.2 fL (80.0-94.0); Mean Platelet Volume 10.7 fL (7.4-10.4); Nucleated Red Blood Cells % 0 % (-); Platelet Count 261 10^3/uL (130-400); Red Blood Cell Count 6.07 10^6/uL (4.70-6.10); Red Cell Dist. Width 18.5 % (11.5-14.5); White Blood Cell Count 10.8 10^3/uL (4.8-10.8)
[2024-04-25 23:18] LABS: Lactic Acid 2.1 mmol/L (0.7-2.0)
[2024-04-25 23:19] LABS: INR 1.14; PT 14.7 Sec (11.4-14.6)
--- NOTE | 2024-04-25 23:20 | ED.GENMED ---
History of Present Illness
General
Chief Complaint: Breathing Problem
Source: records and spouse
Exam Limitations: altered mental status
Time Seen by Provider: 04/25/24 22:49
Nursing documentation reviewed up to this point in time: agreed with
Travel History
Have you had any contact with someone who has COVID-19?: No
Do you have any symptoms of coronavirus? Fever > 100 degrees, chills, cough, shortness of breath, sore throat, loss of taste or smell, muscle aches, or headache?: No
History of Present Illness
History of Present Illness:
69-year-old male with a past medical history of hypertension, hyperlipidemia, obesity, congestive heart failure, COPD, chronic respiratory failure requiring 3 L of home oxygen who presents to the emergency room with his obtunded and in
respiratory distress. He cannot participate in history he is minimally arousable. He was notably admitted to this hospital 03/31/2024 until 04/08/2024 with acute on chronic respiratory failure with hypoxia and hypercarbia thought to be secondary to
congestive heart failure with some component of COPD. He was apparently resistant to using CPAP/BiPAP in the hospital and his says that at home he has been resistant/noncompliant with these therapies. He has still been wearing his oxygen.
His says that over the past few days his respiratory status has been worsening�she has noticed increased work of breathing and coughing. He apparently was started by his outpatient doctor on steroid and was initially started on azithromycin
which was then transition to Levaquin. Symptoms were not improving and tonight patient could barely breathe and finally agreed to come to the hospital. He does have edema on exam says that this is a chronic and ongoing issue. She has not
noticed any fevers. Has not been complaining of chest pain she says.
Past History
Past History
ED Past Medical History: Arrthythmia, CAD, CHF, COPD, HTN, Hypercholesterolemia, Other (Pancreatitis/pulmonary hypertension/sleep apnea) and Other (syncope req pacer/defib)
ED Past Surgical History: Cardiac (pacer/defib)
Patient has exhibited threatening behavior?: No
PSI?: No
Social History
Tobacco: Former smoker
Alcohol: None
Personal:
Living: with family
Employment: Employed
Family History
Family History: CAD and Other (Mother with coronary disease stents and CABG)
Review of Systems
Review of Systems
Unable to obtain full review of systems at this time due to: due to acuity
All Other Systems: Not applicable
Phy Exam
Physical Exam
Physical Exam:
General: Patient is obtunded, GCS 7, no verbal response only grunting and grimace to pain
Head: Normocephalic, atraumatic
Eyes: Conjunctiva normal, pupils equal round and reactive to light bilaterally
Throat: Airway intact, handling secretions
Neck: Trachea midline, no JVD noted
Lungs: Diminished at the lung bases, bilateral diffuse wheezing, tachypnea, hypoxia despite normal home oxygen
Heart: Tachycardic with regular rhythm, no murmurs, gallops, or rubs
Abd: Soft, non distended, ventral hernia
Neuro: Obtunded
Extremities: Bilateral lower extremity edema, equal pulses in all extremities
Scores
Heart Failure Risk
Heart Failure Risk Score: Not Applicable
Heart Score for Chest Pain Patients
STEMI patient?: Not applicable
Withdrawal Assessment of Alcohol
Withdrawal Assessment Completed?: Not applicable
Course
Orders/Labs/Results
Orders:
Orders
04/25/24 22:50
CR Chest Portable - 1 View Urgent
Comment:
Reason For Exam: sob
Reason Study Needs to be Portable: Patient Unstable
04/25/24 23:00
Complete Blood Count/With Diff Urgent
Comprehensive Metabolic Panel Urgent
Lactic Acid Stat
NT-proBNP Urgent
Comment: ADD ON
Prothrombin Time Urgent
Troponin I Urgent
Flush (0.9% Sodium Chloride) [Flush (Nss)] See Dose Instructions IV PER PROTOCOL
04/25/24 23:15
Ipratropium/Albuterol Sulfate [Duoneb] 3 ml INH R NOW ONE
MethylPREDNISolone PF [Solu-Medrol Pf] 125 mg IV NOW STA
04/25/24 23:17
COVID-19 Antigen Urgent
Source: Nasal Swab
Urinalysis Reflex To Culture Urgent
Influenza A+B Rapid Molecular Urgent
EDUARDO Source: Nasal Swab
Specimen Description:
04/25/24 23:19
ABG [Arterial Blood Gas] Urgent
%Oxygen/Room Air: 85
04/25/24 23:21
CefTRIAXone [Rocephin] 1,000 mg IV NOW STA
Doxycycline Hyclate [Vibramycin] 100 mg 0.9% Sodium Chloride 250 ml [Nss] 250 ml IV NOW
Furosemide [Lasix] 40 mg IV NOW STA
04/25/24 23:22
Amiodarone [Cordarone] 150 mg Dextrose 5%/Water 100 ml [D5w] 100 ml IV NOW
04/25/24 23:24
Dextrose 50%-Water [Dextrose 50% Syringe] 12.5 grams IV NOW STA
Insulin Human Regular [Novolin R] 5 units IV NOW STA
Sodium Zirconium Cyclosilicate [Lokelma] 10 gram PO NOW STA
04/25/24 23:25
Amiodarone [Cordarone] 150 mg Dextrose 5%/Water 100 ml [D5w] 100 ml IV NOW
Calcium Gluconate IV [Calcium Gluconate 10% 10 ml] 4.65 meq IV NOW STA
04/25/24 23:30
Blood Culture Q30M
EDUARDO Source: Blood/Venous
Specimen Description:
Amiodarone [Cordarone] 900 mg DEXTROSE 5% PVC-free BAG [D5W PVC-free BAG] 500 ml IV PER PROTOCOL
Initial Dose in mg/min:: 1
Duration of initial dose (hours):: 6
Subsequent dose in mg/min:: 0.5
Duration of subsequent dose (hours):: 18
Maximum dose in mg/min:: 1
Hold and notify provider if:: Heart rate < 60 BPM or SBP < 90 mmHg or MAP < 60 mmHg
Amiodarone [Cordarone] 900 mg DEXTROSE 5% PVC-free BAG [D5W PVC-free BAG] 500 ml IV PER PROTOCOL
Initial Dose in mg/min:: 1
Duration of initial dose (hours):: 6
Subsequent dose in mg/min:: 0.5
Duration of subsequent dose (hours):: 18
Maximum dose in mg/min:: 1
Hold and notify provider if:: Heart rate < 60 BPM or SBP < 90 mmHg or MAP < 60 mmHg
04/26/24 00:38
Blood Culture Q30M
EDUARDO Source: Blood/Venous
Specimen Description:
Abnormal Lab Results
04/25/24 04/25/24
23:00 23:19
MCV 79.2 L fL
(80.0-94.0)
MCH 22.7 L pg
(27.0-31.0)
MCHC 28.7 L g/dL
(33.0-37.0)
RDW 18.5 H %
(11.5-14.5)
MPV 10.7 H fL
(7.4-10.4)
Abs Immat Gran (auto) 0.1 H 10^3/uL
(0-0.05)
Absolute Neuts (auto) 9.4 H 10^3/uL
(1.4-6.5)
Absolute Lymphs (auto) 0.7 L 10^3/uL
(1.2-3.4)
Immature Gran % 0.8 H %
(0-0.5)
Neutrophils % 87.3 H %
(42.2-75.2)
Lymphocytes % 6.9 L %
(20.5-51.1)
PT 14.7 H Sec
(11.4-14.6)
pH 7.07 L*
(7.35-7.45)
pCO2 > 115 H* mmHg
(35-48)
pO2 240 H mmHg
(83-108)
ABG O2 Sat (Measured) 98.4 H %
(94-98)
Potassium 5.6 H mmol/L
(3.5-5.1)
Chloride 87 L mmol/L
(98-107)
Carbon Dioxide 40 H mmol/L
(22-30)
BUN 31 H mg/dl
(9-20)
Creatinine 2.1 H mg/dL
(0.7-1.3)
Glucose 183 H mg/dl
(70-99)
Lactic Acid 2.1 H mmol/L
(0.7-2.0)
Alkaline Phosphatase 144 H U/L
(38-126)
Troponin I 0.047 H* ng/ml
04/25/24 23:00
04/25/24 23:00
Vital Signs
Initial and Last Documented VS:
Initial Vital Signs
Temp Pulse Resp Pulse Ox
37.0 C 110 33 87
04/25/24 22:34 04/25/24 22:34 04/25/24 22:34 04/25/24 22:34
Last Documented Vital Signs
Temp Pulse Resp BP Pulse Ox
37.2 C 68 22 141/87 98
04/26/24 01:24 04/26/24 01:45 04/26/24 01:45 04/26/24 00:55 04/26/24 02:32
Procedures
Intubations
Procedure completed by: Mauro Lin MD
Method of Intubation: curved blade
Tube size (cm): 8.0
Placement confirmed by: auscutation, CXR, capnography and direct visualization
Breath sounds after intubation: equal
Intubation complications: no complications
MDM/Problems Addressed
Differential Diagnosis Includes:
Pneumonia, CHF, COPD exacerbation, pneumothorax, PE
MDM/Problems Addressed:
69-year-old male presents in acute respiratory distress�he presents obtunded, tachypneic, hypoxic. He is not protecting his airway. Intubated after initial assessment as documented in procedure note� confirms that he is full code. EKG prior
to intubation patient went into ventricular tachycardia the end of which we caught on EKG�he never lost pulses. Called for stat portable chest x-ray confirms ET tube, seems consistent with CHF with suspect atelectasis versus pneumonia left lung.
He was given IV amiodarone bolus and infusion for his episode of ventricular tachycardia. Usual labs sent off including a CBC and CMP, BNP, troponin. Will send an ABG. Will treat with DuoNeb and steroid given his history although likely mixed
picture here. Will admit to ICU pending initial assessment.
Initial labs reviewed: CBC shows no leukocytosis, CMP shows MONTSERRAT with a creatinine of 2.1, hyperkalemia to 5.6�with this finding and his run of ventricular tachycardia will temporize with calcium, albuterol already given, will give insulin and
dextrose, dose of Lokelma. Hold on fluids with concern for volume overload will give a dose of Lasix. Will cover with antibiotics for potential pneumonia based on chest x-ray. Case discussed with hospitalist for ICU admission.
Chronic conditions affecting care:
COPD, CHF
Acute Exacerbation and/or Progression of Chronic Illness:
Acute CHF exacerbation treated with Lasix
Acute COPD exacerbation treated with DuoNeb and steroid
Acute on chronic respiratory failure treated with intubation and oxygen therapy
*Radiology
Radiology exam reviewed: preliminary read by ED provider
*Pulse Oximetry
Patient hypoxic: yes
*EKG
Interpreted by ED Provider?: Yes
Heart Rate: 117
Rate: tachycardiac
Rhythm: sinus (Patient has baseline sinus rhythm with bifascicular block but has a run of ventricular tachycardia for initial beats of EKG)
*Critical Care Note
Total Time (30-74mins, 75-104mins- exclusive of procedures): 45
comment:
Critical care statement: A total of 45 minutes of critical care time was provided for this patient. This includes management of unstable vital signs, evaluation of the patient at bedside, frequent reassessment, discussion with
consultants/hospitalist, and review of pertinent medical records. This time was separate from time utilized to perform any aforementioned documented procedures
Data Reviewed
Review of Other/Old Records Reveals: Labs and Records
Source: records and spouse
Patient Management
Discussion with other providers: Hospitalist (Discussed with hospitalist)
Escalation/DeEscalation of care consider admission/obs:
Admission indicated
ED Attending Note
-
Portions of this chart may have been created with voice recognition software.� Occasional wrong word or��sound alike� substitutions may have occurred due to the inherent limitations of voice recognition software.
Discharge Plan
Departure
Patient Disposition: Admit
Date of Disposition: 04/25/24
Time of Disposition: 23:28
Admit to: ICU
Admit to doctor: Daniel
Presentation/result/management discussed w/ accepting MD/DO: Hospitalist
Discharge Problem:
Acute on chronic respiratory failure with hypoxia and hypercapnia, Ventricular tachycardia, MONTSERRAT (acute kidney injury), Hyperkalemia, CHF exacerbation, Acute exacerbation of chronic obstructive pulmonary disease
Interventions
Interventions:
*Risk Screen - Suicide Last Done: 04/25/24 22:34
*General Assessment Last Done: 04/25/24 22:34
*Neglect/Abuse Screening Last Done: 04/25/24 22:34
*ED COVID-19 Vaccine History Last Done: 04/26/24 02:11
ED- Cardiac Assessment Last Done: 04/25/24 22:50
ED- Pulmonary Assessment Last Done: 04/25/24 23:05
Discharge Date and Time
Discharge Date/Time: 04/26/24 01:00
[2024-04-25 23:21] LABS: ALT (SGPT) 18 U/L (0-50); AST (SGOT) 27 U/L (17-59); Albumin 4.5 g/dl (3.5-5.0); Alkaline Phosphatase 144 U/L (38-126); Blood Urea Nitrogen 31 mg/dl (9-20); Calcium 9.7 mg/dl (8.4-10.2); Carbon Dioxide 40 mmol/L (22-30); Chloride 87 mmol/L (98-107); Glucose 183 mg/dl (70-99); Potassium 5.6 mmol/L (3.5-5.1); Sodium 139 mmol/L (135-145); Total Bilirubin 0.6 mg/dl (0.2-1.3); Total Protein 7.9 g/dl (6.3-8.2); eGFR 33.03
[2024-04-25 23:25] LABS: O2 Saturation % 98.4 % (94-98); PO2 240 mmHg (83-108)
[2024-04-25 23:31] LABS: PCO2 > 115 mmHg (35-48); pH 7.07 (7.35-7.45)
[2024-04-25 23:38] LABS: Troponin I 0.047 ng/ml
[2024-04-25] MEDS: SOLU-MEDROL PF 125 MG IV (23:48)
[2024-04-25] MEDS: ROCEPHIN 1000 MG IV (23:50)
[2024-04-25] MEDS: CALCIUM GLUCONATE 10% 10 ML 4.65000000000000036 MEQ IV (23:55)
--- NOTE | 2024-04-25 23:55 | HPS.HSE ---
Family Physician
-
Family Physician: Paula Mariee
Chief Complaint
-
shortness of breath
History of Present Illness
69-year-old male past medical history of chronic hypoxic/hypercarbic respiratory failure on 3 L at baseline, BiPAP at nighttime, CHF, COPD, CKD 3B, obstructive sleep apnea noncompliant with CPAP, pulmonary hypertension, essential hypertension,
polycythemia vera, hyperlipidemia, obesity, osteoarthritis, upper/lower extremity DVT presenting with shortness of breath and productive cough over the past 2 days. No fevers or chills. No chest pain. He has not gained weight and in fact has lost
weight.
As per patient does not smoke or drink alcohol.
Patient was recently hospitalized from 03/31 to 04/08 for acute hypoxic/hypercarbic respiratory failure secondary to CHF exacerbation. He was discharged on BiPAP which she has been compliant with.
Medical History
Past Medical History
Past Medical History: Reports Other ( chronic hypoxic/hypercarbic respiratory failure on 3 L at baseline, BiPAP at nighttime, CHF, COPD, CKD 3B, obstructive sleep apnea noncompliant with CPAP, pulmonary hypertension, essential hypertension,
polycythemia vera, hyperlipidemia, obesity, osteoarthritis, upper/lower extremity DVT )
Past Surgical History: Reports Other (Pancreatic stent Bowel Resection Right Thumb Amputation AICD Placement)
Social History
Tobacco: Non-smoker
Alcohol: None
Drug: None
Family History
Family History: Not pertinent
Allergies / Home Medications
Allergies reflects when Allergies were last updated in [facility].
Home Medications with original date entered in [facility]
Allergy/Medication List:
Allergies
Allergy/AdvReac Type Severity Reaction Status Date / Time
Penicillins Allergy hives,rash Verified 04/25/24 22:34
Home Medications
bupropion HCl 300 mg 24 hr tablet, extended release 300 mg PO DAILY Depression 05/25/20
isosorbide mononitrate 30 mg tablet,extended release 24 hr 30 mg PO DAILY Heart disease/condition 05/25/20
albuterol sulfate 2.5 mg/3 mL (0.083 %) solution for nebulization 2.5 mg inhalation R Q4HPRN PRN shortness of breath 03/30/22
arformoterol 15 mcg/2 mL solution for nebulization (Brovana) 15 mcg IH R BID COPD 03/30/22
budesonide 0.5 mg/2 mL suspension for nebulization (Pulmicort) 0.5 mg IH R BID COPD 03/30/22
revefenacin 175 mcg/3 mL solution for nebulization (Yupelri) 175 mcg IH R DAILY@1200 COPD 03/30/22
aspirin 81 mg tablet,delayed release 81 mg PO DAILY Blood Clot Prevention/Tx 05/01/23
furosemide 80 mg tablet 80 mg PO BID@0800,1600 Fluid Retention/Swelling 05/01/23
potassium chloride 20 mEq tablet,extended release(part/cryst) (Klor-Con M) 20 meq PO BID Electrolyte Repletion 05/01/23
metolazone 2.5 mg tablet 2.5 mg PO DAILYPRN PRN weight gain #5 tabs 05/02/23
azithromycin 250 mg tablet 250 mg PO MOWEFR Lung/Breathing Issues 03/31/24
cholecalciferol (vitamin D3) 50 mcg (2,000 unit) capsule (Vitamin D3) 50 mcg PO DAILY Supplement 03/31/24
gabapentin 300 mg capsule 300 mg PO HS Pain 03/31/24
krill 500 mg-omega 3 115 mg-dha 30 mg-epa 64 [id number] capsule 1 cap PO DAILY Supplement 03/31/24
omeprazole 40 mg capsule,delayed release 40 mg PO DAILY Gastrointestinal Issue 03/31/24
Review of Systems
-
Unable to obtain full review of systems at this time due to: Patient Intubation
History Source: Patient and Family
A 12 point ROS was completed and negative except as noted: No
Physical Exam
Vital Signs
Vital Signs
Temp Pulse Resp BP Pulse Ox
98.6 F 69 24 92/72 95
04/25/24 22:34 04/25/24 23:38 04/25/24 23:00 04/25/24 23:38 04/25/24 23:00
Physical Exam
General: Well Developed, Well Nourished and No Apparent Distress
HEENT: NormoCephalic, Moist mucous membranes and Atraumatic
Respiratory: Clear
Cardiac: S1/S2 and Regular Rhythm; No Murmur or Rub
GI: Soft, Non Tender, Non Distended and Normal Bowel Sounds; No Organomegaly
Rectal: Deferred by Provider
Musculoskeletal: No Clubbing, No Cyanosis and No Edema
Skin: No Rash
Neuro: Nonfocal/grossly intact
Laboratory Results
-
04/25/24 23:00
04/25/24 23:00
Laboratory Results
PT 14.7 Sec (11.4-14.6) H 04/25/24 23:00
INR 1.14 04/25/24 23:00
pH 7.07 (7.35-7.45) L* 04/25/24 23:19
pCO2 > 115 mmHg (35-48) H* 04/25/24 23:19
pO2 240 mmHg (83-108) H 04/25/24 23:19
HCO3 TNP 04/25/24 23:19
Lactic Acid 2.1 mmol/L (0.7-2.0) H 04/25/24 23:00
Total Bilirubin 0.6 mg/dl (0.2-1.3) 04/25/24 23:00
AST 27 U/L (17-59) 04/25/24 23:00
ALT 18 U/L (0-50) 04/25/24 23:00
Alkaline Phosphatase 144 U/L (38-126) H 04/25/24 23:00
Troponin I 0.047 ng/ml H* 04/25/24 23:00
Data Reviewed
-
Lab Data: Labs Reviewed by me
Old Records: Reviewed
Impression/Plan
-
IMPRESSION:
PLAN:
# Acute on chronic/hypercarbic respiratory failure likely multifactorial secondary to CHF exacerbation/atelectasis with mucous plugging of left lung/COPD exacerbation, cannot rule out pneumonia
-Patient intubated on propofol drip
-Postintubation ABG shows pH of 7.07, pCO2 greater than 115,
-Chest x-ray appears to show whiteout of left hemithorax unclear if atelectasis from mucous plugging versus pneumonia
-Check blood cultures
-Check sputum culture
-Vancomycin/Zosyn
-40 of IV Lasix ordered although blood pressure currently 90 systolics, will try to decrease propofol in an attempt to diurese
-Check I's and O's, daily weight
-DuoNebs every 6 hours
-Dexamethasone 4 mg every 12
-Acapella
# Ventricular tachycardia now resolved
# History of VT status post [employer] ICD in 2018
-End of VT run noted on telemetry, patient was stable with pulses
-VT now resolved
-Amiodarone bolus given, drip not required
-Trend troponins
-Cardiology consulted
# MONTSERRAT on CKD 3B likely cardiorenal
-Creatinine of 2.1 from baseline of 1.7
-Hold metolazone
# Hyperkalemia secondary to potassium supplement/MONTSERRAT
-Status post insulin, dextrose, Lokelma
-Stop potassium supplement
Obstructive sleep apnea
COPD
Pulmonary hypertension
Chronic HFpEF
-Hold isosorbide mononitrate
Essential hypertension
History of orthostatic hypotension
Hyperlipidemia
-Continue prophylactic aspirin
Obesity
Osteoarthritis
History of right subclavian DVT
History of lower extremity DVT
History of polycythemia vera
Anxiety/depression
-Hold bupropion
Full code
DVT prophylaxis�heparin
N.p.o.
[2024-04-26] VITALS (50 sets, daily range): BP systolic 65–144; BP diastolic 50–94; BMI 34.8
[2024-04-26] MEDS: NOVOLIN R 5 UNITS IV (00:08)
[2024-04-26] MEDS: DEXTROSE 50% SYRINGE 12.5 GRAMS IV (00:13)
[2024-04-26] MEDS: CORDARONE 518 MG IV (00:17)
[2024-04-26] MEDS: DUONEB 3 ML INH ×5 (00:20→21:05)
[2024-04-26 00:48] LABS: B.E. 12.6 mmol/L; O2 Saturation % 98.2 % (94-98); PO2 208 mmHg (83-108); pH 7.35 (7.35-7.45)
[2024-04-26 00:50] LABS: HCO3 41.4 mmol/L (21-28); PCO2 75 mmHg (35-48)
[2024-04-26 00:52] LABS: NT-proBNP 1600 pg/ml
[2024-04-26 01:10] LABS: COVID-19 Antigen Negative (Negative)
[2024-04-26] MEDS: VANCOCIN 540 MG IV (04:23)
--- NOTE | 2024-04-26 04:55 | W.PN.UPDATE ---
Update Note
Progress Note Update
Procedure Note: Arterial Line�
� Right Wrist Arrow 20 (01/20)�
Diagnosis:��acute hypercarbic respiratory failure
IV Line Comments: Uneventful Procedure�
Kirby's test completed pre-procedure: Yes�
A-Line Comments: Sterile technique as per standard protocol, Ultrasound guided insertion�
Functioning A-line in situ: Yes�
A-line Insertion Start Time:�0420�
A-line in at:��0445
[2024-04-26] MEDS: DIPRIVAN 100 IV ×3 (04:59→20:10)
[2024-04-26] MEDS: SUBLIMAZE 100 IV ×2 (05:32→20:09)
[2024-04-26] MEDS: MAXIPIME 1000 MG IV ×3 (05:32→23:04)
[2024-04-26 05:37] LABS: B.E. 16.7 mmol/L; Ionized Calcium 1.14 mMOL/L (1.15-1.33); O2 Saturation % 97.5 % (94-98); PCO2 56 mmHg (35-48); PO2 97 mmHg (83-108); Potassium 5.1 mMOL/L (3.5-5.1); Sodium 131 mMOL/L (136-145); pH 7.49 (7.35-7.45)
[2024-04-26 05:38] LABS: % Basophils 0.2 % (0-2); % Lymphocytes 2.6 % (20.5-51.1); % Monocytes 3.3 % (1.7-9.3); % Neutrophils 92.9 % (42.2-75.2); Absolute Immature Granulocytes 0.1 10^3/uL (0-0.05); Absolute Lymphocytes 0.4 10^3/uL (1.2-3.4); Absolute Monocytes 0.5 10^3/uL (0.1-0.6); Absolute Neutrophils 12.8 10^3/uL (1.4-6.5); Hematocrit 40.1 % (39.0-52.0); Hemoglobin 11.6 g/dL (13.0-18.0); Mean Corp Hgb Conc. 28.9 g/dL (33.0-37.0); Mean Corpuscular Hgb 22.9 pg (27.0-31.0); Mean Corpuscular Volume 79.1 fL (80.0-94.0); Mean Platelet Volume 10.8 fL (7.4-10.4); Nucleated Red Blood Cells % 0 % (-); Platelet Count 201 10^3/uL (130-400); Red Blood Cell Count 5.07 10^6/uL (4.70-6.10); White Blood Cell Count 13.7 10^3/uL (4.8-10.8)
[2024-04-26 05:39] LABS: HCO3 42.7 mmol/L (21-28); Urine Albumin Trace (Neg - Trace); Urine Bilirubin Negative (Negative); Urine Character Clear (Clear); Urine Color Yellow; Urine Glucose Negative (Negative); Urine Ketone Negative (Negative); Urine Leukocyte Trace (Negative); Urine Nitrite Negative (Negative); Urine Occult Blood 1+ (Negative); Urine Specific Gravity 1.015 (<1.030); Urine Urobilinogen Negative (Neg - 1+)
[2024-04-26 05:51] LABS: Lactic Acid 1.4 mmol/L (0.7-2.0)
[2024-04-26 05:52] LABS: Urine Hyaline Cast >15 /LPF (0-2); Urine Squamous Cell 0-2 /LPF (Few)
[2024-04-26 05:54] LABS: Urine Bacteria Moderate (Negative); Urine Red Blood Cell 30-40 /HPF (0-2)
[2024-04-26 05:57] LABS: ALT (SGPT) 19 U/L (0-50); AST (SGOT) 32 U/L (17-59); Albumin 3.5 g/dl (3.5-5.0); Alkaline Phosphatase 111 U/L (38-126); Blood Urea Nitrogen 39 mg/dl (9-20); Calcium 9.2 mg/dl (8.4-10.2); Carbon Dioxide 37 mmol/L (22-30); Chloride 89 mmol/L (98-107); Estimated Creatinine Clearance 35 ml/min; Glucose 132 mg/dl (70-99); Sodium 133 mmol/L (135-145); Total Bilirubin 0.6 mg/dl (0.2-1.3); Total Protein 6.2 g/dl (6.3-8.2); eGFR 28.14
[2024-04-26 06:06] LABS: Magnesium 2.2 mg/dl (1.6-2.3)
[2024-04-26 06:07] LABS: Troponin I 0.818 ng/ml
--- NOTE | 2024-04-26 06:37 | PTCARENOTE ---
Rec'd pt from ED intubated on Propofol as ordered. Amiodarone infusion turned off shortly after arrival 2/2 hypotension, levophed gtt initiated for SBP goal 90. Arterial line placed by KASEY Fuentes. Pt gets anxious/restless at times, Fentanyl gtt
added to sedation regimen, titrating all drips to clinical endpoints. restraints for safety reasons. Afebrile. SB on monitor. #8 23 lip, vent settings adjusted as ordered to ABG results. Sat 95-98%. OGT placed as ordered. Brown to gravity. Will
monitor.
--- NOTE | 2024-04-26 06:48 | PHA.VAN.IN ---
Assessment
- Assessment
Renal Function: Appears elevated from baseline (SCr 1.6-1.9 baseline; current 2.4)
Maximum Temperature: 98.9
Concomitant Antimicrobials: cefepime
Plan
- Plan
Initial / Loading Dose: 2000 mg (18 mg/kg) 04/26 04:23
Maintenance Regimen: dose by level
Monitoring: random 04/27 am
MRSA Screen: Ordered per protocol (PCR)
Pharmacokinetics Vancomycin I
- -
Patient Age: 69
Patient Sex: Male
Vancomycin Day #: 1
Indication: Pulmonary/Respiratory
Requesting Provider: JESSICA Santana
Pertinent Antimicrobial Allergies:
Penicillins Allergy (Verified 04/25/24 22:34)
hives,rash
per patient 11/27/14 tolerated Keflex in the past per ID note 03/12/18 patient states tolerates amoxicillin
Height / Weight:
Height 5 ft 10 in
Actual Weight 109.9 kg
Pertinent Past Medical History: CKD, BMI ~34
- Vital Signs / Lab Results
Temp Pulse Resp BP Pulse Ox
97.6 F 46 18 103/62 96
04/26/24 03:19 04/26/24 06:30 04/26/24 06:30 04/26/24 06:30 04/26/24 06:30
Lab Results - Hematology
04/25/24 04/26/24
23:00 05:14
WBC 10.8 13.7 H
Lab Results - Chemistry
04/25/24 04/26/24 04/26/24
23:00 05:14 05:14
BUN 31 H Cancelled 39 H
Creatinine 2.1 H Cancelled
Estimated Creat Clear
Albumin 4.5
04/26/24 04/26/24
05:14 05:14
BUN
Creatinine 2.4 H
Estimated Creat Clear Cancelled 35
Albumin 3.5
04/25/24 04/26/24
23:00 05:14
Lactic Acid 2.1 H 1.4
Lab Results - Urine
04/26/24
05:14
Urine Nitrite (Reflex) Negative
Leukocyte Esterase Rfl Trace A
Urine WBC (Reflex) 3-5
Ur Squamous Epith Cells 0-2
Urine Bacteria (Reflex) Moderate A
Microbiology Results
04/26/24 00:35 Influenza Types A & B (MARNI) - Final
Nasal Swab Negative for Influenza A & B, NAAT
Negative results must be combined with clinical observations
and patient history.
Nucleic Acid Amplification test (NAAT)performed on the
[employer] NOW platform.
[2024-04-26] MEDS: CALCIUM CHLORIDE 10% SYRINGE 60 MG IV (07:27)
[2024-04-26] MEDS: DECADRON 4 MG IV ×2 (07:29→19:49)
[2024-04-26] MEDS: HEPARIN 5000 UNITS SC ×3 (07:30→23:04)
[2024-04-26] MEDS: PROTONIX IV 40 MG IV (07:31)
[2024-04-26] MEDS: NSS (PRESERVATIVE FREE) 10 ML IV (07:31)
--- NOTE | 2024-04-26 09:04 | CON.INTV ---
Consultation
Consultation Request
Date/Time Consultation Requested: 04/26/2024 0126
Date/Time Consultation Performed: 04/26/2024839
Requesting Provider: JESSICA Powell
Performing Provider: Vinay Arthur MD
Reason for Consultation: Hypoxia/Intubation
Medical History
-
Chief Complaint: SOB
History of Present Illness:
69-year-old male with a past medical history of chronic hypoxic/hypercapnic respiratory failure on 3 L/min at baseline with BiPAP at night with sleep, HFpEF, group D/class III COPD, severe GUCCI noncompliant with CPAP, moderate pulmonary hypertension
(group II+ III), hyperlipidemia and history of RUE DVT who presents with SOB and productive cough X 2 days. Afebrile in the ER to 98.6 �F, tachycardic to 110, breathing at 33 breaths/min, and was hypoxic to 87% on 4 L/min nasal cannula. Apparently
the patient's grandson was sick recently. He also has not been compliant with the CPAP at home, as per last office visit with family medicine on 04/15/[address] Mariee. He is recent started on outpatient steroids + azithromycin which was
transitioned to Levaquin but his symptoms continue to deteriorate. Patient was found to be acutely hypercapnic with an MONTSERRAT and lactic acidosis. Patient was intubated in the ER and CXR showed bilateral pulmonary vascular congestion suspicious for
acute heart failure exacerbation. He had gone into nonsustained VT prior to intubation and was started on amiodarone in the ER as well. He was admitted to the ICU, started on nebulized bronchodilators, antibiotics and now critical care services
consulted for additional management/recommendations.
When I saw the patient, patient's and daughter were at bedside. He is currently intubated on volume control�CMV on 18/500/40%/5. He is sedated on fentanyl at 25mcg/hr, propofol at 15mcg/kg/min and also on Levophed at 10mcg/min. He is easily
arousable and is following commands, communicating by writing on a pad. Per the , he was using his BiPAP at home but over the last 3-4 days he was unable to breathe well use the mask so he using his BiPAP during sleep.
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
multiorgan failure (2018), moderate pulmonary hypertension (group II + III), history of RLE DVT, former tobacco use, RML atelectasis, positive
PSHx: Pancreatic stent, bowel resection, right thumb amputation, AICD placement
Past Medical History
Past Medical History: Other (Above as per HPI)
Past Surgical History: Other (Above as per HPI)
Social History
Tobacco: Former Smoker
Alcohol: None
Drug: None
Family History
Family History: Reviewed & Not Pertinent
Allergies / Home Medications
Allergies
Allergy/AdvReac Type Severity Reaction Status Date / Time
Penicillins Allergy hives,rash Verified 04/25/24 22:34
Home Medications
�Medication �Instructions �Recorded �Confirmed �Last Taken �Type
bupropion HCl 300 mg 24 hr tablet, 300 mg PO DAILY Depression 05/25/20 03/31/24 03/31/24 History
extended release
isosorbide mononitrate 30 mg 30 mg PO DAILY Heart 05/25/20 03/31/24 03/31/24 History
tablet,extended release 24 hr disease/condition
albuterol sulfate 2.5 mg/3 mL 2.5 mg inhalation R Q4HPRN PRN 03/30/22 03/31/24 03/29/22 19:00 History
(0.083 %) solution for nebulization shortness of breath
arformoterol 15 mcg/2 mL solution 15 mcg IH R BID COPD 03/30/22 03/31/24 03/30/24 History
for nebulization (Brovana)
budesonide 0.5 mg/2 mL suspension 0.5 mg IH R BID COPD 03/30/22 03/31/24 03/30/24 History
for nebulization (Pulmicort)
revefenacin 175 mcg/3 mL solution 175 mcg IH R DAILY@1200 COPD 03/30/22 03/31/24 03/31/24 History
for nebulization (Yupelri)
aspirin 81 mg tablet,delayed 81 mg PO DAILY Blood Clot 05/01/23 03/31/24 03/31/24 History
release Prevention/Tx
furosemide 80 mg tablet 80 mg PO BID@0800,1600 Fluid 05/01/23 03/31/24 03/31/24 History
Retention/Swelling
potassium chloride 20 mEq 20 meq PO BID Electrolyte Repletion 05/01/23 03/31/24 03/31/24 History
tablet,extended
release(part/cryst) (Klor-Con M)
metolazone 2.5 mg tablet 2.5 mg PO DAILYPRN PRN weight gain 05/02/23 03/31/24 03/31/24 Rx
#5 tabs
azithromycin 250 mg tablet 250 mg PO MOWEFR Lung/Breathing 03/31/24 03/31/24 03/31/24 History
Issues
cholecalciferol (vitamin D3) 50 50 mcg PO DAILY Supplement 03/31/24 03/31/24 03/31/24 History
mcg (2,000 unit) capsule (Vitamin
D3)
gabapentin 300 mg capsule 300 mg PO HS Pain 03/31/24 03/31/24 03/30/24 History
krill 500 mg-omega 3 115 mg-dha 30 1 cap PO DAILY Supplement 03/31/24 03/31/24 03/31/24 History
mg-epa 64 wt-[id number]-uzfao capsule
omeprazole 40 mg capsule,delayed 40 mg PO DAILY Gastrointestinal 03/31/24 03/31/24 03/31/24 History
release Issue
Review of Systems
-
Unable to Obtain full review of systems at this time due to: Patient Intubation
Vitals / Labs / Diagnostic Testing
Vital Signs
Temp Pulse Resp BP Pulse Ox
99.0 F 51 18 119/62 95
04/26/24 07:00 04/26/24 09:45 04/26/24 09:45 04/26/24 09:30 04/26/24 09:45
Lab Data
04/26/24 05:14
04/26/24 05:14
Laboratory Results
04/25/24 04/25/24 04/26/24
23:00 23:19 00:38
PT 14.7 H
INR 1.14
pH 7.07 L* 7.35
pCO2 > 115 H* 75 H*
pO2 240 H 208 H
HCO3 TNP 41.4 H*
O2 Delivery Level
04/26/24
05:14
PT
INR
pH 7.49 H
pCO2 56 H
pO2 97
HCO3 42.7 H*
O2 Delivery Level
Microbiology
04/26/24 00:35 Nasal Swab Influenza Types A & B (MARNI) - Final
Negative for Influenza A & B, NAAT
Negative results must be combined with clinical observations
and patient history.
Nucleic Acid Amplification test (NAAT)performed on the
[employer] NOW platform.
Diagnostic Testing:
Physical Exam
-
HEENT: Normocephalic, Anicteric and Other (ETT in place)
Cardiovascular: S1/S2 and Peripheral Edema (Negative)
Respiratory: Wheeze (Negative), Rales (Bilaterally), Rhonchi (negative), Non-Labored Respirations and Other (Mechanical breath sounds heard bilaterally)
GI: Soft, Non Distended, Non Tender and Normal Bowel Sounds
Neurology: Tremors (negative) and Other (Sedated but easily arousable, following commands)
Skin: Warm and Dry
General: Comfortable and Chills (Negative)
Assessment
-
Assessment: 69-year-old male with a past medical history of chronic hypoxic/hypercapnic respiratory failure on 3 L/min at baseline with BiPAP at night with sleep, HFpEF, group D/class III COPD, severe GUCCI noncompliant with CPAP, moderate pulmonary
hypertension (group II+ III), hyperlipidemia and history of RUE DVT who presents with SOB and productive cough X 2 days. Afebrile in the ER to 98.6 �F, tachycardic to 110, breathing at 33 breaths/min, and was hypoxic to 87% on 4 L/min nasal
cannula. Apparently the patient's grandson was sick recently. He also has not been compliant with the CPAP at home, as per last office visit with family medicine on 04/15/[address] Mariee. He is recent started on outpatient steroids +
azithromycin which was transitioned to Levaquin but his symptoms continue to deteriorate. In the ER his pCO2 was >115 with pH 7.07, creatinine was 2.1, serum bicarbonate level is 40, lactate 2.1, and proBNP 1600 (370 in March 2024). Patient was
intubated in the ER and CXR showed bilateral pulmonary vascular congestion suspicious for acute heart failure exacerbation. He had gone into nonsustained VT prior to intubation and was started on amiodarone in the ER as well. He was admitted to
the ICU, started on nebulized bronchodilators, antibiotics and now critical care services consulted for additional management/recommendations.
Conditions present prior admission:
RML atelectasis/collapse
COVID pneumonia, adm Aug, received dexam/remdesivir
COPD, end stage, on home oxygen 24/ at 3L of supplemental oxygen, chronic hypoxemia/hypercarbia, chronic elevation of Hgb
Dr. Mars in past
On albuterol HFA, arformoterol, budesonide, revefenacin (yupelri)
PFT 02/22/2021: FEV1 1.07 L - 35%. FVC 2.19 L - 52%-severe airflow obstruction.
RV dysfunction on TTE 03-28-22 as c/w April 2021 (but trace TR)
VBG 04/04/22: pH 7.31/109/34/54.[address] Taiwo Shah at [facility]
HFpEF ([facility] 03-30-22)
Hypertension
Obstructive sleep apnea-AHI 52 events per hour, marginal compliance to CPAP
Chronic kidney disease, temporary placement HD catheter 03-14-18 for MONTSERRAT
Morbid obesity
Ventricular tachycardia status post ICD
Coronary artery disease
Hyperlipidemia
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
Former smoker
Pulmonary hypertension: Likely post capillary/obstructive sleep apnea
New RLE DVT 11-23-21 (negative RLE doppler 11-03-21): ER visit 11-23-21 (no PE on CTA), d/c home on apixaban. Denies prior h/o DVT
Impression:
#Acute on chronic respiratory failure with hypoxia and hypercapnia now on mechanical ventilation � multifactorial due to outpatient BiPAP noncompliance in the setting of acute HFpEF exacerbation, pneumonia + end-stage COPD
#Pneumonia - likely due to viral pneumonia but unable to rule out bacterial superinfection that led to his current Sx
#Acute HFpEF exacerbation (pro-BNP elevated at 1600, compared to 370 from 03/31/2024)
#Elevated troponin likely due to demand ischemia with type II CT
#Acute kidney injury (baseline Cr ~1.8)
#Acute hyponatremia -likely due to reduced p.o. intake/low solute intake
#NSVT s/p amiodarone in ER; he has a Hx of VT s/p AICD
Plan:
- Continue mechanical ventilation with daily SAT/SBT if clinically appropriate
- Titrate FiO2 and PEEP to maintain SpO2 >88% and <95%
- Maintain plateau pressure <30
- He was given lasix in the ER; given his MONTSERRAT, hold additional diuresis for now. Once Cr stabilizes, then will resume diurese to maintain net negative 1-1.5L per 24 hrs as sCr and BP tolerate
- Maintain MAP>65
- Renally dose all meds and ABx; trend sCr and UOP
- Replete electrolytes with K>4, Mg>2
- Monitor on continuous telemetry and if PVCs/NSVT recurs then restart amiodarone gtt
- Continue systemic steroids and wean as tolerated � currently on Decadron 4 mg IV q12hr
- prn nebulized bronchodilators + DuoNebs QID and I will add pulmicort as he takes this at home
- Follow-up infectious workup with blood cultures + urine culture + sputum culture
- Considering he was recently hospitalized, need to cover for Pseudomonas + MRSA ---> continue empiric antibiotics with cefepime and IV vancomycin (both started 04/26)
- Check MRSA swab and if negative then DC IV vanco
- Start azithromycin for anti-inflammatory effect and for coverage of atypical organisms
- Check urine antigens for legionella and Strep PNA
- Maintain euglycemia with goal BG 140-180
- Stop suction on his OGT, and start tube feeds
- Stress ulcer ppx: PPI
- DVT ppx: HSQ
Critical care statement: A total of 40 minutes of critical care time was provided for this patient today. This includes management of unstable vital signs, evaluation of the patient at bedside, reviewing the patient's pertinent medical records
including radiographs, microbiology, laboratory evaluations, and discussion with primary team, consultants, pharmacy, nutrition, physical therapy, case management, charge nurse, critical care nursing, and respiratory therapy.
Data:
CXR 04-25-2024:
1. New endotracheal tube in normal position.
2. Moderate cardiomegaly with suggestion of mild interstitial cardiogenic pulmonary edema.
3. Moderate airspace consolidation in the right middle lobe consistent with residual RIGHT MIDDLE LOBE PNEUMONIA which has decreased since March 2024.
4. Left-sided AICD in place.
--- NOTE | 2024-04-26 09:08 | PTCARENOTE ---
Pt received in bed @ 0700; intubated and sedated. RASS -1. CPOT 1. Startles to stimulation. Anxious while awake as exhibited by tapping bed rail with hands and shaking legs. Able to follow commands. Nods appropriately to questions. Able to write to
communicate. Wrote, 'Where am I?' Satisfied with answer of [facility]. B/L soft limb restraints in place. Fentanyl gtt infusing @ 25 mcg/hr and Propofol gtt infusing @ 15 mcg/kg/min. ETT #8 @ 23cm to right lip. AC (18/500/40%/5+).
Intermittent coughing. Suctioned for large thick clear mucous. Coarse rhonchi throughout. Sinus israel/Sinus rhythm with 1st degree AV block and bundle branch block. Levophed gtt infusing @ 10 mcg/min with order to maintain SBP > 90. +2 pitting LE
edema. Pedal pulses palpable. (R) radial arterial line transduced, zeroed, and flushed. OGT in place to LIWS. Clear/brown output. Brown catheter in place draining yellow. (R) thumb amputation.
--- NOTE | 2024-04-26 11:13 | CM ---
CM following re: discharge planning.
Reviewed pt's chart, met with pt.
Pt is a 69 year old male, admitted with primary dx of Acute hypoxic respiratory failure. Pt was intubated in ED yesterday, remains intubated, continue supportive care.
Pt lives with spouse and a grandson in a 2SH, 1 step to enter, stays on the first floor. Pt has home Oxygen managed by [facility] and pt has Bi-Pap machine provided by [facility]. Pt was in [facility] last year and known to [facility].
PCP: Paula Mariee
Pharmacy: [facility]
D/C plan: uncertain at this time and will depend on pt's progress. PT and OT will evaluate when clinically appropriate to determine a level of care at discharge.
CM will follow with discharge plan updates as hospitalization progresses
[2024-04-26] MEDS: LEVOPHED 250 IV ×2 (11:16→17:27)
[2024-04-26] MEDS: ZITHROMAX INFUSION 250 IV (11:38)
[2024-04-26] MEDS: DIAMOX 250 MG PO (13:04)
--- NOTE | 2024-04-26 13:48 | PTCARENOTE ---
Pt reassessed. Unable to wean gtt's while maintaining ordered goals. Propofol continues @ 10 mcg/kg/min, Fentanyl @ 25 mcg/hr, and Levophed @ 10 mcg/min. Pt able continues to follow commands. Able to communicate through writing. Requested a fan and
one was provided to him. Troponin not yet peaked; will continue to trend. OGT placement verified by XR for enteral feedings. Diamox administered via tube. at bedside.
--- NOTE | 2024-04-26 14:28 | CON.CAR ---
Consultation
Consultation Request
Date/Time Consultation Requested: 04/26/24
Date/Time Consultation Performed: 04/26/24
Requesting Provider: Daniel
Performing Provider: Omega
Reason for Consultation: CHF
Medical History
-
Chief Complaint: SOB
History of Present Illness:
Patient came to [facility] late 04/25/24 with increased SOB and productive cough. Patient was reportedly obtunded in [place] emergency department and therefore was intubated for airway protection. Postintubation ABG showed a pH of 7.07 with pCO2
greater than 115. He was admitted to the medical ICU where he remains intubated and sedated. Blood gas is significantly improved with mechanical ventilatory support.
Currently being treated with IV antibiotics for possible pneumonia, steroids for possible COPD exacerbation. Marginal blood pressure requiring norepinephrine as pressor support.
Low-level troponin elevation, 0.047 and uptrending, last 1.17
Initial ECG showed 4 beats of nonsustained VT, follow-up ECG unchanged from baseline
PMH:
Chronic HFpEF
CKD 3, baseline appears to be Cre 1.4-1.7
h/o Pancreatic pseudocyst and necrotizing pancreatitis due to gallstone with prolonged hospitalization for multisystem organ failure, vent-dependent respiratory failure at [place] on 2018
history of VT s/p single chamber Medtronic ICD 05/15/18 as secondary prevention for syncope, VT
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
Obstructive sleep apnea, noncompliant w/ CPAP
Non-obstructive CAD by cath 05/13/18
COPD/obstructive lung disease, oxygen dependent 3 lpm at rest, followed by [facility]
Pulmonary hypertension
Hypertension
Hyperlipidemia
h/o orthostatic hypotension
Osteoarthritis
h/o R subclavian vein DVT after dialysis catheter placement 2018.
h/o calf DVT (?left)
h/o traumatic amputation of R thumb
Past Medical History
Past Medical History: Other (As above)
Past Surgical History: Other (As above)
Social History
Tobacco: Non-Smoker
Family History
Family History: Reviewed & Not Pertinent
Allergies / Home Medications
Allergy/AdvReac Type Severity Reaction Status Date / Time
Penicillins Allergy hives,rash Verified 04/25/24 22:34
�Medication �Instructions �Recorded �Confirmed �Type
bupropion HCl 300 mg 24 hr tablet, 300 mg PO DAILY Depression 05/25/20 03/31/24 History
extended release
isosorbide mononitrate 30 mg 30 mg PO DAILY Heart 05/25/20 03/31/24 History
tablet,extended release 24 hr disease/condition
albuterol sulfate 2.5 mg/3 mL 2.5 mg inhalation R Q4HPRN PRN 03/30/22 03/31/24 History
(0.083 %) solution for nebulization shortness of breath
arformoterol 15 mcg/2 mL solution 15 mcg IH R BID COPD 03/30/22 03/31/24 History
for nebulization (Brovana)
budesonide 0.5 mg/2 mL suspension 0.5 mg IH R BID COPD 03/30/22 03/31/24 History
for nebulization (Pulmicort)
revefenacin 175 mcg/3 mL solution 175 mcg IH R DAILY@1200 COPD 03/30/22 03/31/24 History
for nebulization (Yupelri)
aspirin 81 mg tablet,delayed 81 mg PO DAILY Blood Clot 05/01/23 03/31/24 History
release Prevention/Tx
furosemide 80 mg tablet 80 mg PO BID@0800,1600 Fluid 05/01/23 03/31/24 History
Retention/Swelling
potassium chloride 20 mEq 20 meq PO BID Electrolyte Repletion 05/01/23 03/31/24 History
tablet,extended
release(part/cryst) (Klor-Con M)
metolazone 2.5 mg tablet 2.5 mg PO DAILYPRN PRN weight gain 05/02/23 03/31/24 Rx
#5 tabs
azithromycin 250 mg tablet 250 mg PO MOWEFR Lung/Breathing 03/31/24 03/31/24 History
Issues
cholecalciferol (vitamin D3) 50 50 mcg PO DAILY Supplement 03/31/24 03/31/24 History
mcg (2,000 unit) capsule (Vitamin
D3)
gabapentin 300 mg capsule 300 mg PO HS Pain 03/31/24 03/31/24 History
krill 500 mg-omega 3 115 mg-dha 30 1 cap PO DAILY Supplement 03/31/24 03/31/24 History
mg-epa 64 hc-[id number]-qdltk capsule
omeprazole 40 mg capsule,delayed 40 mg PO DAILY Gastrointestinal 03/31/24 03/31/24 History
release Issue
Review of Systems
-
Unable to obtain full review of systems at this time due to: Patient Intubation
Physical Exam
Vital Signs
Temp Pulse Resp BP Pulse Ox
99.0 F 75 20 119/62 94
04/26/24 11:15 04/26/24 10:59 04/26/24 10:59 04/26/24 09:30 04/26/24 12:00
Lab Results
04/26/24 05:14
04/26/24 05:14
Troponin I 1.170 ng/ml H* D 04/26/24 10:59
Nwh-R-Wsguvmemwuv Pept Cancelled 04/25/24 23:17
Physical Exam
General: Well Developed
HEENT: Normocephalic
Respiratory: Other (Mechanically ventilated)
Cardiac: S1/S2 and Regular Rhythm
GI: Soft
Musculoskeletal: Edema (Nonpitting)
Skin: Warm and Dry
Neuro: Sedated
Psych: Calm
Impression / Plan
-
PCP: Dr. Mariee
Primary Exhibit Electrician: Dr. Bill
Impression:
Acute on chronic HFpEF
Acute on chronic respiratory failure
Dietary indiscretion
TME with untreated GUCCI, pt not taking CPAP
CKD 3, baseline appears to be Cre 1.4-1.7
h/o Pancreatic pseudocyst and necrotizing pancreatitis due to gallstone with prolonged hospitalization for multisystem organ failure, vent-dependent respiratory failure at [place] on 2018
history of VT s/p single chamber Medtronic ICD 05/15/18 as secondary prevention for syncope, VT
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
Obstructive sleep apnea, noncompliant w/ CPAP
Noncompliance
Non-obstructive CAD by cath 05/13/18
COPD/obstructive lung disease, oxygen dependent 3 lpm at rest, followed by [facility]
Pulmonary hypertension
Hypertension
Hyperlipidemia
h/o orthostatic hypotension
Osteoarthritis
h/o R subclavian vein DVT after dialysis catheter placement 2017.
h/o calf DVT (?left)
h/o traumatic amputation of R thumb
ECHO 03/28/22: Technically difficult study, Definity used, EF 70%, moderate concentric LVH, hypokinetic RV free wall, PAP 45 to 50 mmHg
ECHO 05/02/23: EF greater than 75%, posterior MAC, thickened mitral valve leaflets, trace MR, mild to moderate TR, PAP 44 mmHg, dilated hypokinetic RV, no significant change compared to prior
Echo 04/01/24: Normal left ventricular chamber size. Mild concentric left ventricular hypertrophy. Hyperdynamic left ventricular systolic function. LV ejection fraction is 65-70% by Cottrell's method of discs. Reduced right ventricular systolic
function. Pacer wire seen in right ventricle. Posterior mitral annular calcification. Mild to moderate tricuspid regurgitation.Estimated pulmonary artery pressure of 45-50 mmHg Assuming a right atrial pressure of 3 mmHg. Normal pericardium without
effusion.The aortic root is of normal size. No significant change compared to 2022 echocardiogram
Plan:
-Acute on chronic respiratory failure, suspect this is multifactorial and in part related to HFpEF as well as GUCCI, pneumonia and COPD
-Eventual diuresis to improve her respiratory status, currently on hold given MONTSERRAT, plan to give IV when renal function stabilizes
-Low-level troponin elevation, suspect nonischemic myocardial injury troponin elevation, trend to peak
-Nonsustained VT (4 beats) seen on admission ECG
-Suspect this was precipitated by profound acidosis and hypoxia
-Correct electrolytes/pH and monitor on telemetry
We will continue to follow with you
Data Reviewed
-
EKG: Tracing Personally Visualized and interpreted
Radiology: Image Personally Visualized and interpreted
Medical Tests (Nuc Med, Echo etc): Report Reviewed by me
Labs: Labs Reviewed by me
Old Records: Reviewed
[2024-04-26] MEDS: STERILE WATER FOR INJECTION 10 ML IV ×2 (14:50→23:04)
--- NOTE | 2024-04-26 15:48 | W.PN.HOSP.TC ---
Today's Communication/Plan
-
abx
f/u cultures
duonebs
wean pressors as tolerated; MAP goal >65
monitor bmp, diuresis once scr stabilizes
Assessment / Plan
Assessment / Plan
Physical Exam
General: Well Developed, Well Nourished and No Apparent Distress
HEENT: NormoCephalic, Moist mucous membranes and Atraumatic
Respiratory: Clear
Cardiac: S1/S2 and Regular Rhythm; No Murmur or Rub
GI: Soft, Non Tender, Non Distended and Normal Bowel Sounds; No Organomegaly
Rectal: Deferred by Provider
Musculoskeletal: No Clubbing, No Cyanosis and No Edema
Skin: No Rash
Neuro: Nonfocal/grossly intact
# Acute on chronic/hypercarbic respiratory failure likely multifactorial secondary to CHF exacerbation/atelectasis with mucous plugging of left lung/COPD exacerbation, cannot rule out pneumonia
-Patient intubated on propofol, fentanyl
-Postintubation ABG shows pH of 7.07, pCO2 greater than 115,
-cont abx
-Currently holding lasix due to MONTSERRAT, although if cardiorenal - may need to reinitate
-On CMV, attempt SBT soon
-maintain RASS +2-3
-duonebs
-decadron
#Septic Shock
-possible pneumonia
-propofol possibly making worse
-cont abx
-Wean pressors as tolerated
-Check blood cultures
-Check sputum culture
-Vancomycin/cefepime/Azithro
-F/u MRSA swab and dc vanc if neg
- Check I's and O's, daily weight
#Acute on chronic HFpEF
� Hold diuresis due to MONTSERRAT, pressor requirement
� May need to initiate diuresis once renal function stabilizes
#Hyponatremia
-mild
-ctm
# Nonischemic myocardial injury
Mostly secondary to acute stress with respiratory failure, infection
� No chest pain
� Continue to monitor, trend to peak
� Cardiology consulted
# Ventricular tachycardia now resolved
# History of VT status post Medtronic ICD in 2018
-End of VT run noted on telemetry, patient was stable with pulses�most likely secondary to acidosis, hypoxia
-VT now resolved
-Amiodarone bolus given, drip not required
-Trend troponins
-Cardiology consulted
# MONTSERRAT on CKD 3B likely cardiorenal
-Creatinine of 2.1 from baseline of 1.7
�Hold nephrotoxic agents, diuretics
# Hyperkalemia secondary to potassium supplement/MONTSERRAT
-Status post insulin, dextrose, Lokelma
-Stop potassium supplement
Obstructive sleep apnea
COPD
Pulmonary hypertension
Chronic HFpEF
-Hold isosorbide mononitrate
Essential hypertension
History of orthostatic hypotension
Hyperlipidemia
-Continue prophylactic aspirin
Obesity
Osteoarthritis
History of right subclavian DVT
History of lower extremity DVT
History of polycythemia vera
Anxiety/depression
-Hold bupropion
Full code
DVT prophylaxis�heparin
N.p.o.
Total time spent on today's encounter was 50 minutes which included time spent in counseling the patient/family regarding diagnosis and treatment plan as listed above, goals of care, and symptom management. Case was discussed with nursing staff,
specialists, and care coordinators/case management. All labs and imaging personally reviewed by me. Remainder the time spent in detailed review of previous records, lab data, imaging, and other medical provider documentation.
Anticipated Discharge: > 48 hours
Subjective/Interval History
-
Date of Service: April 26, 2024
RASS of 3, on CMV
Objective Data
-
Labs:
Laboratory Results
04/26/24 04/26/24 04/26/24
05:14 05:14 05:14
WBC 13.7 H
Hgb 11.6 L
Hct 40.1
Plt Count 201 D
HCO3 42.7 H*
Sodium Cancelled 133 L
Potassium Cancelled 5.0
Chloride Cancelled
Carbon Dioxide
BUN
Creatinine
Glucose
Calcium
Total Bilirubin
AST
ALT
Alkaline Phosphatase
04/26/24 04/26/24 04/26/24
05:14 05:14 05:14
WBC
Hgb
Hct
Plt Count
HCO3
Sodium
Potassium
Chloride 89 L
Carbon Dioxide Cancelled 37 H
BUN Cancelled 39 H
Creatinine Cancelled
Glucose
Calcium
Total Bilirubin
AST
ALT
Alkaline Phosphatase
04/26/24 04/26/24 04/26/24
05:14 05:14 05:14
WBC
Hgb
Hct
Plt Count
HCO3
Sodium
Potassium
Chloride
Carbon Dioxide
BUN
Creatinine 2.4 H
Glucose Cancelled 132 H
Calcium Cancelled 9.2
Total Bilirubin 0.6
AST 32
ALT 19
Alkaline Phosphatase 111
Vital Signs:
Vital Signs
Temp Pulse Resp BP Pulse Ox
99.0 F 60 17 130/68 97
04/26/24 11:15 04/26/24 15:32 04/26/24 15:32 04/26/24 14:00 04/26/24 15:32
I&O
04/25/24 04/26/24 04/27/24
06:59 06:59 06:59
Intake Total 166.1 / 216.5 453.6 / 453.6
Output Total 220 / 250 410 / 410
Balance -53.9 / -33.5 43.6 / 43.6
Review of Systems
-
Constitutional: Denies Fever or Chills
Abdomen/GI: Denies Abdominal Pain, Nausea or Vomiting
Neuro: Denies Dizzy
Physical Exam
-
General: Comfortable
HEENT: Moist Mucous Membranes
Respiratory: Wheezes (Faint wheeze)
Cardiac: Regular Rhythm and S1/S2
GI: Soft
Neuro: AO x 3
Data Reviewed
-
Labs: Labs Reviewed by me
--- NOTE | 2024-04-26 17:48 | PTCARENOTE ---
Rec'd pt at 1530. Pt sedate on Propofol/Fentanyl gtts on vent. Opens eyes to verbal stimuli, quickly becomes anxious when awake, shaking feet and arms. Writing on paper or nodding to make needs known. Pt calms with emotional support or when
undisturbed. Monitor SBR. SBP 110's via right radial a-line, Levophed gtts at 10mcg/min. PICC line to be placed this evening by IV team. at bedside, updated.
--- NOTE | 2024-04-26 21:00 | PTCARENOTE ---
Pt intubated/sedated, easily arousable to touch. Follows commands. Restraints in use for safety reasons. Baseline anxious as per . updated on plan of care. Afebrile. SB/NSR. Levophed to maintain SBP 90. Fentanyl/Prop for comfort. PICC line
placed by VAT team, confirmed by XRAY. Vent settings as ordered. ABG in AM. NGT to liws. Brown to gravity. Will monitor.
[2024-04-26] MEDS: PULMICORT 0.5 MG INH (21:05)
[2024-04-27] VITALS (36 sets, daily range): BP systolic 106–166; BP diastolic 56–83; PULSE 2–71; BMI 35.1
--- NOTE | 2024-04-27 01:00 | PTCARENOTE ---
No change in previous assessment. AM labs pending. CHG complete.
[2024-04-27 02:09] LABS: B.E. 16.5 mmol/L; O2 Saturation % 96.3 % (94-98); PCO2 59 mmHg (35-48); PO2 82 mmHg (83-108); pH 7.47 (7.35-7.45)
[2024-04-27 02:11] LABS: HCO3 42.9 mmol/L (21-28)
[2024-04-27 02:13] LABS: % Basophils 0.3 % (0-2); % Immature Granulocytes 0.6 % (0-0.5); % Lymphocytes 3.7 % (20.5-51.1); % Monocytes 6.2 % (1.7-9.3); % Neutrophils 89.2 % (42.2-75.2); Absolute Immature Granulocytes 0.1 10^3/uL (0-0.05); Absolute Lymphocytes 0.6 10^3/uL (1.2-3.4); Absolute Monocytes 0.9 10^3/uL (0.1-0.6); Absolute Neutrophils 13.2 10^3/uL (1.4-6.5); Hematocrit 36.6 % (39.0-52.0); Hemoglobin 11.3 g/dL (13.0-18.0); Mean Corp Hgb Conc. 30.9 g/dL (33.0-37.0); Mean Corpuscular Hgb 22.9 pg (27.0-31.0); Mean Corpuscular Volume 74.2 fL (80.0-94.0); Mean Platelet Volume 10.9 fL (7.4-10.4); Nucleated Red Blood Cells % 0 % (-); Platelet Count 213 10^3/uL (130-400); Red Blood Cell Count 4.93 10^6/uL (4.70-6.10); Red Cell Dist. Width 17.6 % (11.5-14.5); White Blood Cell Count 14.8 10^3/uL (4.8-10.8)
[2024-04-27 03:01] LABS: ALT (SGPT) 17 U/L (0-50); AST (SGOT) 32 U/L (17-59); Albumin 3.4 g/dl (3.5-5.0); Alkaline Phosphatase 92 U/L (38-126); Blood Urea Nitrogen 43 mg/dl (9-20); Calcium 9.3 mg/dl (8.4-10.2); Carbon Dioxide 35 mmol/L (22-30); Chloride 89 mmol/L (98-107); Estimated Creatinine Clearance 32 ml/min; Glucose 146 mg/dl (70-99); Magnesium 2.1 mg/dl (1.6-2.3); Phosphorus 4.2 mg/dl (2.5-4.5); Potassium 4.6 mmol/L (3.5-5.1); Sodium 133 mmol/L (135-145); Total Bilirubin 0.6 mg/dl (0.2-1.3); Total Protein 6.1 g/dl (6.3-8.2); eGFR 25.57
[2024-04-27 03:15] LABS: NT-proBNP 9020 pg/ml
[2024-04-27] MEDS: MAXIPIME 1000 MG IV ×3 (05:21→21:55)
[2024-04-27] MEDS: STERILE WATER FOR INJECTION 10 ML IV ×3 (05:21→21:55)
[2024-04-27] MEDS: PULMICORT 0.5 MG INH ×2 (05:58→19:31)
[2024-04-27] MEDS: DUONEB 3 ML INH ×4 (05:59→19:31)
[2024-04-27] MEDS: HEPARIN 5000 UNITS SC ×3 (07:38→23:13)
[2024-04-27] MEDS: ZITHROMAX 250 MG PO (07:38)
[2024-04-27] MEDS: NSS (PRESERVATIVE FREE) 10 ML IV (07:38)
[2024-04-27] MEDS: PROTONIX IV 40 MG IV (07:38)
[2024-04-27] MEDS: DECADRON 4 MG IV ×2 (07:38→19:37)
[2024-04-27] MEDS: MIRALAX 17 GRAMS TUBE (07:54)
--- NOTE | 2024-04-27 08:45 | W.PN.INTV ---
Today's Communication / Plan
Recommendations
SBT --> extubate to BiPAP x 1-2 hours, then resume BiPAP with sleep on his home settings
Goal SpO2>88%
Systemic steroids and wean as tolerated
Bedside nursing swallow eval once extubated
If bedside swallow abnormal then we will c/s CERTIFIED WELDER
Diuresis prn with re-assessment daily of volume status
Assessment
-
Assessment: 69-year-old male with a past medical history of chronic hypoxic/hypercapnic respiratory failure on 3 L/min at baseline with BiPAP at night with sleep, HFpEF, group D/class III COPD, severe GUCCI noncompliant with CPAP, moderate pulmonary
hypertension (group II+ III), hyperlipidemia and history of RUE DVT who presents with SOB and productive cough X 2 days. Afebrile in the ER to 98.6 �F, tachycardic to 110, breathing at 33 breaths/min, and was hypoxic to 87% on 4 L/min nasal
cannula. Apparently the patient's grandson was sick recently. He also has not been compliant with the CPAP at home, as per last office visit with family medicine on 04/15/[address] Mariee. He is recent started on outpatient steroids +
azithromycin which was transitioned to Levaquin but his symptoms continue to deteriorate. In the ER his pCO2 was >115 with pH 7.07, creatinine was 2.1, serum bicarbonate level is 40, lactate 2.1, and proBNP 1600 (370 in March 2024). Patient was
intubated in the ER and CXR showed bilateral pulmonary vascular congestion suspicious for acute heart failure exacerbation. He had gone into nonsustained VT prior to intubation and was started on amiodarone in the ER as well. He was admitted to
the ICU, started on nebulized bronchodilators, antibiotics and now critical care services consulted for additional management/recommendations.
Conditions present prior admission:
RML atelectasis/collapse
COVID pneumonia, adm Aug, received dexam/remdesivir
COPD, end stage, on home oxygen 11/06 at 3L of supplemental oxygen, chronic hypoxemia/hypercarbia, chronic elevation of Hgb
Dr. Mars in past
On albuterol HFA, arformoterol, budesonide, revefenacin (yupelri)
PFT 02/22/2021: FEV1 1.07 L - 35%. FVC 2.19 L - 52%-severe airflow obstruction.
RV dysfunction on TTE 03-28-22 as c/w April 2021 (but trace TR)
VBG 04/04/22: pH 7.31/109/34/54.[address] Taiwo Shah at [facility]
HFpEF ([facility] 03-30-22)
Hypertension
Obstructive sleep apnea-AHI 52 events per hour, marginal compliance to CPAP
Chronic kidney disease, temporary placement HD catheter 03-14-18 for MONTSERRAT
Morbid obesity
Ventricular tachycardia status post ICD
Coronary artery disease
Hyperlipidemia
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
Former smoker
Pulmonary hypertension: Likely post capillary/obstructive sleep apnea
New RLE DVT 11-23-21 (negative RLE doppler 11-03-21): ER visit 11-23-21 (no PE on CTA), d/c home on apixaban. Denies prior h/o DVT
Impression:
#Acute on chronic respiratory failure with hypoxia and hypercapnia now on mechanical ventilation � multifactorial due to outpatient BiPAP noncompliance in the setting of acute HFpEF exacerbation, pneumonia + end-stage COPD
#Pneumonia - likely due to viral pneumonia but unable to rule out bacterial superinfection that led to his current Sx
#Acute HFpEF exacerbation (pro-BNP elevated at 1600, compared to 370 from 03/31/2024)
#Elevated troponin likely due to demand ischemia with type II HI
#Acute kidney injury (baseline Cr ~1.8)
#Lactic acidosis � resolved as of 04/26/2024
#Acute hyponatremia -likely due to reduced p.o. intake/low solute intake
#NSVT s/p amiodarone in ER; he has a Hx of VT s/p AICD
Plan:
- Continue mechanical ventilation with daily SAT/SBT if clinically appropriate --> plan to perform SBT this AM on 03/23 and extubate to bipap x 1-2 hours, then can resume BiPAP with sleep
- Titrate FiO2 and PEEP to maintain SpO2 >88% and <95%
- Maintain plateau pressure <30
- He was given lasix in the ER on admission; Will give another dose of lasix now prior to extubation --> re-assess daily based on UOP, I/O and sCr - once Cr stabilizes, then will resume daily diurese to maintain net negative 1-1.5L per 24 hrs as sCr
and BP tolerate
- Maintain MAP>65
- Renally dose all meds and ABx; trend sCr and UOP
- Replete electrolytes with K>4, Mg>2
- Monitor on continuous telemetry and if PVCs/NSVT recurs then restart amiodarone gtt
- Continue systemic steroids and wean as tolerated � currently on Decadron 4 mg IV q12hr
- prn nebulized bronchodilators + DuoNebs QID and I added pulmicort as he takes this at home
- Follow-up infectious workup with blood cultures + urine culture + sputum culture
- Considering he was recently hospitalized, need to cover for Pseudomonas + MRSA ---> continue empiric antibiotics with cefepime (started 04/26); IV vanco DC'd given negative MRSA swab
- Check MRSA swab and if negative then DC IV vanco
- On 04/26 I started azithromycin for anti-inflammatory effect and for coverage of atypical organisms - complete 5 days worth
- Maintain euglycemia with goal BG 140-180
- Start tube feeds - if extubated then will do a bedside swallow eval and see if he can tolerate PO diet
- Stress ulcer ppx: PPI - --> continue once extubated as he takes omeprazole at home
- DVT ppx: HSQ
Critical care statement: A total of 43 minutes of critical care time was provided for this patient today. This includes management of unstable vital signs, evaluation of the patient at bedside, reviewing the patient's pertinent medical records
including radiographs, microbiology, laboratory evaluations, and discussion with primary team, consultants, pharmacy, nutrition, physical therapy, case management, charge nurse, critical care nursing, and respiratory therapy.
Data:
CXR 04-27-2024:
1. Moderate interstitial cardiogenic pulmonary edema.
2. Moderate bilateral lower lobe airspace opacity (either bilateral lower lobe pneumonia or a combination of alveolar pulmonary edema and subsegmental atelectasis).
3. Suspected minimal to small bilateral pleural effusions.
4. Endotracheal tube, nasogastric tube, right upper extremity PICC line, and left-sided AICD in place.
CXR 04-25-2024:
1. New endotracheal tube in normal position.
2. Moderate cardiomegaly with suggestion of mild interstitial cardiogenic pulmonary edema.
3. Moderate airspace consolidation in the right middle lobe consistent with residual RIGHT MIDDLE LOBE PNEUMONIA which has decreased since March 2024.
4. Left-sided AICD in place.
Subjective Dataa
Subjective Data
Date of Service:
Date of Service: April 27, 2024
Chief Complaint: Lighting Fixtures Decorator Follow Up
Subjective:
Patient seen and evaluated this morning. He is awake, alert, he wants the ET tube out of his throat. Afebrile overnight. He is following commands. at bedside and I answered all her questions.
Review of Systems
General: Other (Unable to obtain as patient is intubated)
Objective Data
Data Reviewed
Vital Signs / I&O / Oxygen:
Vital Signs
Temp Pulse Resp BP Pulse Ox
98.1 F 57 16 133/79 93
04/27/24 08:01 04/27/24 08:15 04/27/24 08:15 04/27/24 08:00 04/27/24 08:15
Intake and Output
04/26/24 04/27/24 04/28/24
06:59 06:59 06:59
Intake Total 166.1 / 216.5 1139.1 / 1170.5 83.0 / 83.0
Output Total 220 / 250 1240 / 1240
Balance -53.9 / -33.5 -100.9 / -69.5 83.0 / 83.0
SaO2 [A/C] 94
SaO2 93
Nasal Cannula flow liters per 4
minute
Physical Exam
General: Respiratory Distress (negative), Comfortable and Chills (negative)
HEENT: Normocephalic, Anicteric and Other (ETT in place)
Cardiovascular: S1-S2 and Peripheral Edema (negative)
Respiratory: Wheeze (negative), Crackles (Bilaterally), Rhonchi (negative), Accessory Resp Muscle Use (negative) and ET Tube (Mechanical breath sounds heard bilaterally)
GI: Soft, Distended (Abdominal obesity), Non Tender and Normal Bowel Sounds
Neurology: Awake, Alert and Tremors (negative)
Skin: Warm, Dry and Jaundice (negative)
Labs/Micro/Reports
Lab Data
04/27/24 01:58
04/27/24 01:58
Laboratory Results
04/27/24
01:58
pH 7.47 H
pCO2 59 H
pO2 82 L
HCO3 42.9 H*
O2 Delivery Level
Microbiology
04/26/24 05:14 Tracheal Aspirate Respiratory Culture - Preliminary
04/26/24 05:14 Tracheal Aspirate Gram Stain - Preliminary
04/26/24 05:14 Blood/Venous Blood Culture - Preliminary
No Growth in 24 hours- Final report to follow
04/26/24 00:38 Blood/Venous Blood Culture - Preliminary
No Growth in 24 hours- Final report to follow
04/26/24 15:02 Urine Legionella Urinary Antigen - Final
Negative for Legionella pneumophila Serogroup 1 antigen.
A negative result does not rule out the possiblity of
Legionella infection due to other serogroups or species of
Legionella. Clinical correlation is recommended.
04/26/24 15:02 Urine Streptococcus pneumoniae Antigen (M - Final
Negative for Streptococcus pneumoniae antigen.
A negative result does not exclude infection with
Streptococcus pneumoniae. Clinical correlation is
recommended.
04/26/24 07:51 Nose Nasal Screen MRSA (PCR) - Final
MRSA not detected - performed by PCR methodology.
04/26/24 00:35 Nasal Swab Influenza Types A & B (MARNI) - Final
Negative for Influenza A & B, NAAT
Negative results must be combined with clinical observations
and patient history.
Nucleic Acid Amplification test (NAAT)performed on the
[employer] platform.
--- NOTE | 2024-04-27 09:39 | PTCARENOTE ---
Rec'd pt at 0700. Pt sedate on Propofol/Fentanyl gtts on vent. Opens eyes to verbal stimuli, immediately becomes anxious when awakened, kicking feet and flailing hands. Monitor SBR/V-paced at times. Levophed gtts titrated down to 4mcg/min to keep
SBP >90.
[2024-04-27] MEDS: LASIX 60 MG IV (11:19)
[2024-04-27 12:11] LABS: B.E. 14.9 mmol/L; O2 Saturation % 95.4 % (94-98); PCO2 69 mmHg (35-48); PO2 79 mmHg (83-108)
[2024-04-27 12:12] LABS: O2 Therapy 40%
[2024-04-27 12:13] LABS: HCO3 42.7 mmol/L (21-28)
--- NOTE | 2024-04-27 13:55 | PTCARENOTE ---
~1030 pt placed on SBT 5//40%, tolerated well with some anxiety, able to emotional calm pt. 60mg IV Lasix given, ABG sent and MD notified of results. 1310 pt extubated to bipap 12 4L. Restraints removed. Pt pleasant and cooperative, at
bedside.
--- NOTE | 2024-04-27 14:05 | W.PN.HOSP.TC ---
Today's Communication/Plan
-
extubate to NIV; BiPAP qhs
cards recss for trop elevation- ordered echo to assess wall motion abnormality
Abx
Trial IV lasix, monitor Is&Os
steroid wean
Assessment / Plan
Assessment / Plan
Physical Exam
General: Well Developed, Well Nourished and No Apparent Distress
HEENT: NormoCephalic, Moist mucous membranes and Atraumatic
Respiratory: Clear
Cardiac: S1/S2 and Regular Rhythm; No Murmur or Rub
GI: Soft, Non Tender, Non Distended and Normal Bowel Sounds; No Organomegaly
Rectal: Deferred by Provider
Musculoskeletal: No Clubbing, No Cyanosis and No Edema
Skin: No Rash
Neuro: Nonfocal/grossly intact
# Acute on chronic/hypercarbic respiratory failure likely multifactorial secondary to CHF exacerbation/atelectasis with mucous plugging of left lung/COPD exacerbation, cannot rule out pneumonia
-Tolerating SBT well this morning
-cont abx
-IV Lasix prior to extubation - planned for today
-extubate to NIV, BiPAP qhs
-duonebs
-decadron
#Septic Shock
-possible pneumonia
-propofol possibly making worse
-cont abx
-Wean pressors as tolerated
-Check blood cultures
-Check sputum culture
-Vancomycin/cefepime/Azithro
-F/u MRSA swab and dc vanc if neg
- Check I's and O's, daily weight
#Acute on chronic HFpEF
� IV diuresis; 60mg IV lasix now
-monitor bmp
-monitor Is&Os
#Hyponatremia
-mild
-ctm
# Nonischemic myocardial injury n NSTEMI
Mostly secondary to acute stress with respiratory failure, infection
� No chest pain
� Continue to monitor, trend to peak 1.17
� Cardiology consulted
-F/u ECHO to eval wall motion abnormality
# Ventricular tachycardia now resolved
# History of VT status post Medtronic ICD in 2018
-End of VT run noted on telemetry, patient was stable with pulses�most likely secondary to acidosis, hypoxia
-VT now resolved
-Amiodarone bolus given, drip not required
-Trend troponins
-Cardiology consulted
# MONTSERRAT on CKD 3B likely cardiorenal
-Creatinine of 2.1 from baseline of 1.7
�Hold nephrotoxic agents, diuretics
# Hyperkalemia secondary to potassium supplement/MONTSERRAT
-Status post insulin, dextrose, Lokelma
-Stop potassium supplement
Obstructive sleep apnea
COPD
Pulmonary hypertension
Chronic HFpEF
-Hold isosorbide mononitrate
Essential hypertension
History of orthostatic hypotension
Hyperlipidemia
-Continue prophylactic aspirin
Obesity
Osteoarthritis
History of right subclavian DVT
History of lower extremity DVT
History of polycythemia vera
Anxiety/depression
-Hold bupropion
Full code
DVT prophylaxis�heparin
N.p.o. - Speech eval and ST post extubation
Total time spent on today's encounter was 52 minutes which included time spent in counseling the patient/family regarding diagnosis and treatment plan as listed above, goals of care, and symptom management. Case was discussed with nursing staff,
specialists, and care coordinators/case management. All labs and imaging personally reviewed by me. Remainder the time spent in detailed review of previous records, lab data, imaging, and other medical provider documentation.
Anticipated Discharge: > 48 hours
Subjective/Interval History
-
Date of Service: April 27, 2024
Doing well on SBT
Objective Data
-
Labs:
Laboratory Results
04/27/24 04/27/24
01:58 12:03
WBC 14.8 H
Hgb 11.3 L
Hct 36.6 L
Plt Count 213
HCO3 42.9 H* 42.7 H*
Sodium 133 L
Potassium 4.6
Chloride 89 L
Carbon Dioxide 35 H
BUN 43 H
Creatinine 2.6 H
Glucose 146 H
Calcium 9.3
Total Bilirubin 0.6
AST 32
ALT 17
Alkaline Phosphatase 92
Vital Signs:
Vital Signs
Temp Pulse Resp BP Pulse Ox
98.2 F 67 18 134/74 95
04/27/24 11:13 04/27/24 13:45 04/27/24 13:45 04/27/24 13:15 04/27/24 13:45
I&O
04/26/24 04/27/24 04/28/24
06:59 06:59 06:59
Intake Total 166.1 / 216.5 1139.1 / 1170.5 116.3 / 116.3
Output Total 220 / 250 1240 / 1240
Balance -53.9 / -33.5 -100.9 / -69.5 116.3 / 116.3
Review of Systems
-
Constitutional: Denies Fever or Chills
Abdomen/GI: Denies Abdominal Pain, Nausea or Vomiting
Neuro: Denies Dizzy
Physical Exam
-
General: Comfortable
HEENT: Moist Mucous Membranes
Respiratory: Wheezes (Faint wheeze)
Cardiac: Regular Rhythm and S1/S2
GI: Soft
Neuro: AO x 3
Data Reviewed
-
Labs: Labs Reviewed by me
--- NOTE | 2024-04-27 14:52 | W.PN.CARDCBS ---
Today's Communication / Plan
-
Diuretics on hold, would resume when renal function stabilizes
Impression / Plan
-
PCP: Dr. Mariee
Primary Beader: Dr. Bill
Impression:
Acute on chronic respiratory failure
COPD exacerbation, possible pneumonia
Chronic HFpEF
TME with untreated GUCCI, pt not taking CPAP
CKD 3
h/o Pancreatic pseudocyst and necrotizing pancreatitis due to gallstone with prolonged hospitalization for multisystem organ failure, vent-dependent respiratory failure at [facility] on 2018
history of VT s/p single chamber Medtronic ICD 05/15/18 as secondary prevention for syncope, VT
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
Obstructive sleep apnea, noncompliant w/ CPAP
Noncompliance
Non-obstructive CAD by cath 05/13/18
COPD/obstructive lung disease, oxygen dependent 3 lpm at rest, followed by [facility]
Pulmonary hypertension
Hypertension
Hyperlipidemia
h/o orthostatic hypotension
Osteoarthritis
h/o R subclavian vein DVT after dialysis catheter placement 2018.
h/o calf DVT (?left)
h/o traumatic amputation of R thumb
ECHO 03/28/22: Technically difficult study, Definity used, EF 70%, moderate concentric LVH, hypokinetic RV free wall, PAP 45 to 50 mmHg
ECHO 05/02/23: EF greater than 75%, posterior MAC, thickened mitral valve leaflets, trace MR, mild to moderate TR, PAP 44 mmHg, dilated hypokinetic RV, no significant change compared to prior
Echo 04/01/24: Normal left ventricular chamber size. Mild concentric left ventricular hypertrophy. Hyperdynamic left ventricular systolic function. LV ejection fraction is 65-70% by Cottrell's method of discs. Reduced right ventricular systolic
function. Pacer wire seen in right ventricle. Posterior mitral annular calcification. Mild to moderate tricuspid regurgitation.Estimated pulmonary artery pressure of 45-50 mmHg Assuming a right atrial pressure of 3 mmHg. Normal pericardium without
effusion.The aortic root is of normal size. No significant change compared to 2022 echocardiogram
Plan:
-Acute on chronic respiratory failure, suspect this is multifactorial and in part related to chronic HFpEF as well as GUCCI, pneumonia and COPD
-Eventual diuresis to improve his respiratory status, but diuretics currently on hold given MONTSERRAT on CKD, plan to give IV when renal function stabilizes
-Low-level troponin elevation, suspect nonischemic myocardial injury troponin elevation, peaked at 1.17
-Nonsustained VT (4 beats) seen on admission ECG
-Suspect this was precipitated by profound acidosis and hypoxia
-Correct electrolytes/pH and monitor on telemetry
We will continue to follow with you
Progress Note - Beader
Subjective
Date of Service: April 27, 2024
No acute overnight events. Remains intubated in the medical ICU this morning however is more awake and interactive, tracking and following commands.
Objective
Labs:
04/27/24:58
04/27/24 01:58
Labs
Hgb 11.3 g/dL (13.0-18.0) L 04/27/24:58
Hct 36.6 % (39.0-52.0) L 04/27/24 01:58
Plt Count 213 10^3/uL (130-400) 04/27/24 01:58
PT 14.7 Sec (11.4-14.6) H 04/25/24 23:00
INR 1.14 04/25/24 23:00
Sodium 133 mmol/L (135-145) L 04/27/24:58
Potassium 4.6 mmol/L (3.5-5.1) 04/27/24:58
BUN 43 mg/dl (9-20) H 04/27/24:58
Creatinine 2.6 mg/dL (0.7-1.3) H 04/27/24 01:58
Glucose 146 mg/dl (70-99) H 04/27/24 01:58
Troponins
04/25/24 04/26/24 04/26/24
23:00 04:00 05:14
Troponin I 0.047 H* Cancelled 0.818 H* D
04/26/24 04/26/24
10:59 16:41
Troponin I 1.170 H* D 1.100 H*
Vital Signs and I&O:
Vital Signs
Temp Pulse Resp BP Pulse Ox
98.2 F 66 16 132/72 94
04/27/24 11:13 04/27/24 14:30 04/27/24 14:30 04/27/24 14:00 04/27/24 14:30
Vital Signs
Temp Pulse Resp BP Pulse Ox
98.2 F 66 16 132/72 94
04/27/24 11:13 04/27/24 14:30 04/27/24 14:30 04/27/24 14:00 04/27/24 14:30
Intake & Output
04/25/24 04/26/24 04/27/24 04/28/24
06:59 06:59 06:59 06:59
Intake Total 166.1 / 216.5 1139.1 / 1170.5 116.3 / 116.3
Output Total 220 / 250 1240 / 1240
Balance -53.9 / -33.5 -100.9 / -69.5 116.3 / 116.3
Physical Exam
Physical Exam
Gen: NAD, restrained
HEENT: NC/AT, sclera anicteric
Neck: No JVD
CV: RRR, NL s1/s2
Lungs: Mechanically ventilated
Abd: S/ND
: Brown with gurvinder urine.
Ext: No LE edema
Skin: Warm, dry.
Neuro: Awake, tracking and following commands
--- NOTE | 2024-04-27 17:51 | PTCARENOTE ---
~1500, bipap mask removed by resp therapist, pt placed on 3LNC, pox 95%. ~1700 bedside swallow done by nursing, pt passed with no issue. Clear liquids ordered, water at bedside. A-line dc'd.
--- NOTE | 2024-04-27 20:00 | PTCARENOTE ---
Rec'd pt resting in bed, anxious, legs moving, ' I need something to help me sleep tonight', Saray Fitzpatrick, OWNER/OPERATOR in to speak to pt & , natan rec'd, pt forgetful, [place], follows commands, SR W/ BBB, weak distal pulses,+ LE edema, skin warm/dry, O2 3
liters nc, lungs w/ crackles 1/4 up L & R base, decr in bases, sat 96, + bowel sounds, no bm, abd obese, soft, scar clear liquids, palencia draining yellow urine
--- NOTE | 2024-04-27 22:06 | PTCARENOTE ---
refused xanax at this time, will let me know if he wants it later
[2024-04-27] MEDS: LOPRESSOR 5 MG IV (23:13)
[2024-04-28] VITALS (19 sets, daily range): BP systolic 120–146; BP diastolic 53–79; PULSE 2–67; O2SAT 98; BMI 34.0
--- NOTE | 2024-04-28 | PTCARENOTE ---
sys reviewed, lungs w/ faint scat exp wheezes, crackles as earlier, CHG bath done, linens changed
--- NOTE | 2024-04-28 00:39 | PTCARENOTE ---
placed on BIPAP 12/5 w/ 3 liters o2 by resp therapist for the night
[2024-04-28 03:57] LABS: % Basophils 0.1 % (0-2); % Eosinophils 0.1 % (0-6); % Immature Granulocytes 0.3 % (0-0.5); % Lymphocytes 5.2 % (20.5-51.1); % Monocytes 6.5 % (1.7-9.3); % Neutrophils 87.8 % (42.2-75.2); Absolute Lymphocytes 0.5 10^3/uL (1.2-3.4); Absolute Monocytes 0.6 10^3/uL (0.1-0.6); Absolute Neutrophils 8.5 10^3/uL (1.4-6.5); Hematocrit 38.2 % (39.0-52.0); Hemoglobin 11.2 g/dL (13.0-18.0); Mean Corp Hgb Conc. 29.3 g/dL (33.0-37.0); Mean Corpuscular Hgb 22.9 pg (27.0-31.0); Mean Platelet Volume 11.2 fL (7.4-10.4); Nucleated Red Blood Cells % 0 % (-); Platelet Count 145 10^3/uL (130-400); Red Cell Dist. Width 17.4 % (11.5-14.5); White Blood Cell Count 9.7 10^3/uL (4.8-10.8)
--- NOTE | 2024-04-28 04:00 | PTCARENOTE ---
sys reviewed, changes noted, unable to sleep
[2024-04-28 04:10] LABS: ALT (SGPT) 14 U/L (0-50); AST (SGOT) 26 U/L (17-59); Albumin 3.3 g/dl (3.5-5.0); Alkaline Phosphatase 89 U/L (38-126); Blood Urea Nitrogen 44 mg/dl (9-20); Calcium 8.6 mg/dl (8.4-10.2); Chloride 87 mmol/L (98-107); Estimated Creatinine Clearance 32 ml/min; Glucose 95 mg/dl (70-99); Potassium 3.8 mmol/L (3.5-5.1); Sodium 135 mmol/L (135-145); Total Bilirubin 0.5 mg/dl (0.2-1.3); eGFR 25.57
[2024-04-28 04:17] LABS: Carbon Dioxide 37 mmol/L (22-30)
[2024-04-28] MEDS: MAXIPIME 1000 MG IV ×3 (05:59→21:18)
[2024-04-28] MEDS: STERILE WATER FOR INJECTION 10 ML IV ×3 (06:00→21:18)
--- NOTE | 2024-04-28 06:06 | PTCARENOTE ---
requests bipap off, 'hasn't slept all night','how can i sleep with the mask on?' changed to 3 liters nc
[2024-04-28] MEDS: MIRALAX TUBE (07:37)
[2024-04-28] MEDS: PROTONIX IV 40 MG IV (07:37)
[2024-04-28] MEDS: DECADRON 4 MG IV (07:37)
[2024-04-28] MEDS: HEPARIN 5000 UNITS SC ×3 (07:37→23:06)
[2024-04-28] MEDS: NSS (PRESERVATIVE FREE) 10 ML IV (07:37)
[2024-04-28] MEDS: ZITHROMAX 250 MG PO (07:37)
--- NOTE | 2024-04-28 07:45 | PTCARENOTE ---
PT received in bed, drowsy but easily arousable, PT pleasant and cooperative, denies sleeping well, SB with 1st degree AV block, BBBC, and PVC's, trace edema to LE, weak palpable pulses, 3L NC, O22 96%, occasional moist cough, B/L BS diminished T/O,
scattered crackles T/O, abdomen round and obese, hypoactive BS, Thermistor Brown draining clear yellow urine, PICC flushed and patent, reviewed plan of care with PT
[2024-04-28] MEDS: PULMICORT 0.5 MG INH ×2 (07:55→19:41)
[2024-04-28] MEDS: DUONEB 3 ML INH ×3 (07:55→19:40)
--- NOTE | 2024-04-28 07:56 | W.PN.HOSP.TC ---
Today's Communication/Plan
-
downgrade to tele
Assessment / Plan
Assessment / Plan
A/P:
# Acute on chronic hypercarbic respiratory failure likely multifactorial secondary to CHF exacerbation/atelectasis with mucous plugging of left lung/COPD exacerbation, cannot rule out pneumonia
Extubated 04/28, cont NIV, BiPAP qhs
Weaned to 3L NC during day time, pt is on home O2 at 3L NC
cont abx cefepime/azithromycin
duonebs
decadron 4 mg IV Q12
SPL eval
# Septic Shock, possible pneumonia
Off pressor
cont abx cefepime/azithromycin
Blood cultures negative
MRSA screen negative
Follow sputum culture
# Acute on chronic HFpEF
Hold isosorbide mononitrate
s/p IV lasix 60 mg x1
Check I's and O's, daily weight
# Hyponatremia, mild
# Nonischemic myocardial injury most likely secondary to acute stress with respiratory failure/ infection
No chest pain
Trop peaked to 1.17
F/u ECHO to eval wall motion abnormality
Cardiology consulted
# Ventricular tachycardia now resolved
# History of VT status post Medtronic ICD in 2018
End of VT run noted on telemetry, patient was stable with pulses- most likely secondary to acidosis, hypoxia
VT now resolved
Amiodarone bolus given, drip not required
Cardiology consulted
# MONTSERRAT on CKD 3B likely cardiorenal
Creatinine today at 2.6, from baseline of 1.7
Hold nephrotoxic agents, diuretics
# Hyperkalemia secondary to potassium supplement/MONTSERRAT
Status post insulin, dextrose, Lokelma
Stop potassium supplement
# Obstructive sleep apnea
# COPD
# Pulmonary hypertension
# Essential hypertension
# History of orthostatic hypotension
# Hyperlipidemia
Continue prophylactic aspirin
# Obesity
# Osteoarthritis
# History of right subclavian DVT
# History of lower extremity DVT
# History of polycythemia vera
# Anxiety/depression
Hold bupropion
Full code
DVT prophylaxis� heparin SQ
Anticipated Discharge: > 48 hours
Subjective/Interval History
-
Date of Service: April 28, 2024
Objective Data
-
Labs:
Laboratory Results
04/28/24
03:26
WBC 9.7
Hgb 11.2 L
Hct 38.2 L
Plt Count 145 D
Sodium 135
Potassium 3.8
Chloride 87 L
Carbon Dioxide 37 H
BUN 44 H
Creatinine 2.6 H
Glucose 95
Calcium 8.6
Total Bilirubin 0.5
AST 26
ALT 14
Alkaline Phosphatase 89
Vital Signs:
Vital Signs
Temp Pulse Resp BP Pulse Ox
37.0 C 50 17 132/70 96
04/28/24 07:37 04/28/24 06:30 04/28/24 06:30 04/28/24 06:00 04/28/24 06:30
I&O
04/27/24 04/28/24 04/29/24
06:59 06:59 06:59
Intake Total 1139.1 / 1170.5 456.3 / 456.3
Output Total 1240 / 1340 3475 / 3625 150 / 150
Balance -100.9 / -169.5 -3018.7 / -3168.7 -150 / -150
Review of Systems
-
All other systems: Reviewed and negative
Physical Exam
-
General: Well Developed, Well Nourished, Comfortable and Respiratory Distress (chronic)
HEENT: Moist Mucous Membranes and Oxygen (3L NC)
Respiratory: Wheezes (Faint wheeze) and Non Labored Respirations; Negative Accessory Resp Muscle Use
Cardiac: Regular Rhythm and S1/S2
GI: Soft
Neuro: Awake and Alert
Psych: Calm and Intact Judgement/Insight
Data Reviewed
-
Diagnostic Radiology: Image personally visualized and interpreted and Report Reviewed by me
Labs: Labs Reviewed by me
--- NOTE | 2024-04-28 09:16 | PTOTSP ---
Dysphagia Evaluation
Patient with a history of mild pharyngeal dysphagia and esophageal dysmotility. He has acute on chronic risk factors for dysphagia (i.e., intubation 04/25-04/28/2024 due to AHRF with COPD exacerbation and PNA; end stage COPD on home O2) but no
significant signs of oral/pharyngeal or aspiration at the bedside. Cannot rule out silent aspiration. Patient declined repeat video swallow study.
Recommend:
1. Regular, Thin Liquids
2. Medications as best tolerated
3. Strategies: upright to 90 degrees, slow rate, alternate solids/liquids, reflux precautions
4. Will f/u briefly at the acute care level.
--- NOTE | 2024-04-28 09:39 | PTCARENOTE ---
PT resting peacefully, 60% breakfast tray finished, speech advanced diet, no complaints at this time
--- NOTE | 2024-04-28 09:49 | PTCARENOTE ---
PT to be transferred to room 316-01, awaiting room to be cleaned
--- NOTE | 2024-04-28 10:46 | PTCARENOTE ---
Report given to 3rd floor RN, answered all questions, Brown cath removed as per protocol, explained that PT has til 1830 to urinate, awaiting bed to transfer PT to room 316-78
--- NOTE | 2024-04-28 11:29 | W.PN.CARDCBS ---
Today's Communication / Plan
-
Diuretics on hold with creatinine of 2.6
Noncompliance felt to be because of admission
Continue treatment of COPD/pneumonia
Impression / Plan
-
PCP: Dr. Mariee
Primary Baggage Handling Supervisor: Dr. Bill
Impression:
Acute on chronic respiratory failure
COPD exacerbation, possible pneumonia
Chronic HFpEF
Nonischemic myocardial injury with peak troponin of 1.2
TME with untreated GUCCI, pt not taking CPAP
CKD 3
h/o Pancreatic pseudocyst and necrotizing pancreatitis due to gallstone with prolonged hospitalization for multisystem organ failure, vent-dependent respiratory failure at [facility] on 2018
history of VT s/p single chamber Medtronic ICD 05/15/18 as secondary prevention for syncope, VT
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
Obstructive sleep apnea, noncompliant w/ CPAP
Noncompliance
Non-obstructive CAD by cath 05/13/18
COPD/obstructive lung disease, oxygen dependent 3 lpm at rest, followed by [facility]
Pulmonary hypertension
Hypertension
Hyperlipidemia
h/o orthostatic hypotension
Osteoarthritis
h/o R subclavian vein DVT after dialysis catheter placement 2018.
h/o calf DVT (?left)
h/o traumatic amputation of R thumb
ECHO 03/28/22: Technically difficult study, Definity used, EF 70%, moderate concentric LVH, hypokinetic RV free wall, PAP 45 to 50 mmHg
ECHO 05/02/23: EF greater than 75%, posterior MAC, thickened mitral valve leaflets, trace MR, mild to moderate TR, PAP 44 mmHg, dilated hypokinetic RV, no significant change compared to prior
Echo 04/01/24: Normal left ventricular chamber size. Mild concentric left ventricular hypertrophy. Hyperdynamic left ventricular systolic function. LV ejection fraction is 65-70% by Cottrell's method of discs. Reduced right ventricular systolic
function. Pacer wire seen in right ventricle. Posterior mitral annular calcification. Mild to moderate tricuspid regurgitation.Estimated pulmonary artery pressure of 45-50 mmHg Assuming a right atrial pressure of 3 mmHg. Normal pericardium without
effusion.The aortic root is of normal size. No significant change compared to 2022 echocardiogram
Plan:
Readmission felt to be due in part to noncompliance
Volume status is difficult but diuretics on hold with creatinine of 2.6
Continue treatment for pneumonia and COPD
Discussed with nursing
Progress Note - Baggage Handling Supervisor
Subjective
Date of Service: April 28, 2024
No complaints
Objective
Labs:
04/28/24 03:26
04/28/24:
Labs
Hgb 11.2 g/dL (13.0-18.0) L 04/28/24 03:26
Hct 38.2 % (39.0-52.0) L 04/28/24:
Plt Count 145 10^3/uL (130-400) D 04/28/24 03:26
PT 14.7 Sec (11.4-14.6) H 04/25/24 23:00
INR 1.14 04/25/24 23:00
Sodium 135 mmol/L (135-145) 04/28/24 03:26
Potassium 3.8 mmol/L (3.5-5.1) 04/28/24 03:26
BUN 44 mg/dl (9-20) H 04/28/24:26
Creatinine 2.6 mg/dL (0.7-1.3) H 04/28/24:26
Glucose 95 mg/dl (70-99) 04/28/24:26
Troponins
04/25/24 04/26/24 04/26/24
23:00 04:00 05:14
Troponin I 0.047 H* Cancelled 0.818 H* D
04/26/24 04/26/24
10:59 16:41
Troponin I 1.170 H* D 1.100 H*
Vital Signs and I&O:
Vital Signs
Temp Pulse Resp BP Pulse Ox
98.6 F 47 17 121 96
04/28/24 10:38 04/28/24 10:30 04/28/24 10:30 04/28/24 10:00 04/28/24 10:30
Vital Signs
Temp Pulse Resp BP Pulse Ox
98.6 F 47 17 96
04/28/24 10:38 04/28/24 10:30 04/28/24 10:30 04/28/24 10:00 04/28/24 10:30
Intake & Output
04/26/24 04/27/24 04/28/24 04/29/24
06:59 06:59 06:59 06:59
Intake Total 166.1 / 216.5 1139.1 / 1170.5 456.3 / 456.3 480 / 480
Output Total 220 / 250 1240 / 1340 3475 / 3625 525 / 525
Balance -53.9 / -33.5 -100.9 / -169.5 -3018.7 / -3168.7 -45 / -45
Physical Exam
Physical Exam
General: Well developed, well nourished in NAD.
Neck: Supple, no JVD, HJR, carotids +2 B/L, no bruits bilaterally.
Heart: Non displaced PMI, RRR, no murmurs, No S3, S4, no rubs.
Lungs: Scattered rhonchi
Extremities: No clubbing, cyanosis or edema bilaterally.
Neuro: Grossly nonfocal, awake, alert and oriented x3.
--- NOTE | 2024-04-28 13:44 | W.PN.INTV ---
Today's Communication / Plan
Recommendations
Prednisone taper
Continue antibiotics as indicated
Nebulizer therapy
Oxygen supplementation at baseline
Increase physical activity as tolerated
Diuretics as able
Critical care team will sign off.
Please call pulmonary if any acute respiratory issues arise
Outpatient pulmonary follow-up with Dr. Quevedo after discharge.
Assessment
-
Assessment: 69-year-old male with a past medical history of chronic hypoxic/hypercapnic respiratory failure on 3 L/min at baseline with BiPAP at night with sleep, HFpEF, group D/class III COPD, severe GUCCI noncompliant with CPAP, moderate pulmonary
hypertension (group II+ III), hyperlipidemia and history of RUE DVT who presents with SOB and productive cough X 2 days. Afebrile in the ER to 98.6 �F, tachycardic to 110, breathing at 33 breaths/min, and was hypoxic to 87% on 4 L/min nasal
cannula. Apparently the patient's grandson was sick recently. He also has not been compliant with the CPAP at home, as per last office visit with family medicine on 04/15/[address] Mariee. He is recent started on outpatient steroids +
azithromycin which was transitioned to Levaquin but his symptoms continue to deteriorate. In the ER his pCO2 was >115 with pH 7.07, creatinine was 2.1, serum bicarbonate level is 40, lactate 2.1, and proBNP 1600 (370 in March 2024). Patient was
intubated in the ER and CXR showed bilateral pulmonary vascular congestion suspicious for acute heart failure exacerbation. He had gone into nonsustained VT prior to intubation and was started on amiodarone in the ER as well. He was admitted to
the ICU, started on nebulized bronchodilators, antibiotics and now critical care services consulted for additional management/recommendations.
Conditions present prior admission:
RML atelectasis/collapse
COVID pneumonia, adm Aug, received dexam/remdesivir
COPD, end stage, on home oxygen 24/7 at 3L of supplemental oxygen, chronic hypoxemia/hypercarbia, chronic elevation of Hgb
Dr. Mars in past
On albuterol HFA, arformoterol, budesonide, revefenacin (yupelri)
PFT 02/22/2021: FEV1 1.07 L - 35%. FVC 2.19 L - 52%-severe airflow obstruction.
RV dysfunction on TTE 03-28-22 as c/w April 2021 (but trace TR)
VBG 04/04/22: pH 7.31/109/34/54.[address] Taiwo Shah at [facility]
HFpEF ([facility] 03-30-22)
Hypertension
Obstructive sleep apnea-AHI 52 events per hour, marginal compliance to CPAP
Chronic kidney disease, temporary placement HD catheter 03-14-18 for MONTSERRAT
Morbid obesity
Ventricular tachycardia status post ICD
Coronary artery disease
Hyperlipidemia
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
Former smoker
Pulmonary hypertension: Likely post capillary/obstructive sleep apnea
New RLE DVT 11-23-21 (negative RLE doppler 11-03-21): ER visit 11-23-21 (no PE on CTA), d/c home on apixaban. Denies prior h/o DVT
Impression:
#Acute on chronic respiratory failure with hypoxia and hypercapnia now on mechanical ventilation � multifactorial due to outpatient BiPAP noncompliance in the setting of acute HFpEF exacerbation, pneumonia + end-stage COPD
#Pneumonia - likely due to viral pneumonia but unable to rule out bacterial superinfection that led to his current Sx
#Acute HFpEF exacerbation (pro-BNP elevated at 1600, compared to 370 from 03/31/2024)
#Elevated troponin likely due to demand ischemia with type II LA
#Acute kidney injury (baseline Cr ~1.8)
#Lactic acidosis � resolved as of 04/26/2024
#Acute hyponatremia -likely due to reduced p.o. intake/low solute intake
#NSVT s/p amiodarone in ER; he has a Hx of VT s/p AICD
Plan:
-
Patient extubated on low rate supplemental oxygen 3 L which is his baseline
Not bronchospastic on exam.
Comfortable and conversant.
-
Continue diuretics as able.
- Replete electrolytes with K>4, Mg>2
- Monitor on continuous telemetry and if PVCs/NSVT.
Not bronchospastic on exam
Transition to oral prednisone 40 mg and decrease by 10 mg every 72 hours to off.
prn nebulized bronchodilators +
DuoNebs QID and pulmicort-Home regimen.
-
Continue current antibiotics
All cultures negative so far
Considering he was recently hospitalized, need to cover for Pseudomonas + MRSA ---> continue empiric antibiotics with cefepime (started 04/26); IV vanco DC'd given negative MRSA swab
Check MRSA swab negative-vancomycin discontinued
On 04/26 complete azithromycin for anti-inflammatory effect and for coverage of atypical organisms - complete 5 days worth
Patient has been transition to telemetry.
Critical care team will sign off.
Patient seems to be close to baseline.
Continue nebulizers and prednisone taper as above.
Outpatient pulmonary follow-up with Dr. Quevedo after discharge.
Please call pulmonary if any acute respiratory issues arise.

Data:
CXR 04-27-2024:
1. Moderate interstitial cardiogenic pulmonary edema.
2. Moderate bilateral lower lobe airspace opacity (either bilateral lower lobe pneumonia or a combination of alveolar pulmonary edema and subsegmental atelectasis).
3. Suspected minimal to small bilateral pleural effusions.
4. Endotracheal tube, nasogastric tube, right upper extremity PICC line, and left-sided AICD in place.
CXR 04-25-2024:
1. New endotracheal tube in normal position.
2. Moderate cardiomegaly with suggestion of mild interstitial cardiogenic pulmonary edema.
3. Moderate airspace consolidation in the right middle lobe consistent with residual RIGHT MIDDLE LOBE PNEUMONIA which has decreased since March 2024.
4. Left-sided AICD in place.
Subjective Dataa
Subjective Data
Date of Service:
Date of Service: April 28, 2024
Chief Complaint: Hospital Educator Follow Up
Subjective:
Patient feels better.
Denies any cough or phlegm production.
Shortness of breath significantly improved.
Review of Systems
General: Fever (n)
Cardiopulmonary: Dyspnea (none at rest) and Cough (improved)
GI: Abdominal Pain (n) and Nausea (n)
Objective Data
Data Reviewed
Vital Signs / I&O / Oxygen:
Vital Signs
Temp Pulse Resp BP Pulse Ox
98.4 F 55 16 146/70 96
04/28/24 11:20 04/28/24 11:36 04/28/24 11:36 04/28/24 11:20 04/28/24 11:36
Intake and Output
04/27/24 04/28/24 04/29/24
06:59 06:59 06:59
Intake Total 1139.1 / 1170.5 456.3 / 456.3 480 / 480
Output Total 1240 / 1340 3475 / 3625 525 / 525
Balance -100.9 / -169.5 -3018.7 / -3168.7 -45 / -45
SaO2 [A/C] 94
SaO2 96
Nasal Cannula flow liters per 3
minute
Physical Exam
General: Respiratory Distress (negative), Comfortable and Chills (negative)
HEENT: Normocephalic, Anicteric and Other (ETT in place)
Cardiovascular: S1-S2 and Peripheral Edema (negative)
Respiratory: Wheeze (negative), Crackles (Bilaterally- improved), Rhonchi (negative), Accessory Resp Muscle Use (negative) and ET Tube (Mechanical breath sounds heard bilaterally)
GI: Soft, Distended (Abdominal obesity), Non Tender and Normal Bowel Sounds
Neurology: Awake, Alert and Tremors (negative)
Skin: Warm, Dry and Jaundice (negative)
Labs/Micro/Reports
Lab Data
04/28/24 03:26
04/28/24 03:26
Microbiology
04/26/24 05:14 Tracheal Aspirate Respiratory Culture - Final
04/26/24 05:14 Tracheal Aspirate Gram Stain - Final
04/26/24 05:14 Blood/Venous Blood Culture - Preliminary
No Growth in 48 hours- Final report to follow
04/26/24 00:38 Blood/Venous Blood Culture - Preliminary
No Growth in 48 hours- Final report to follow
04/26/24 05:14 Urine Urine Culture - Final
NO GROWTH
04/26/24 15:02 Urine Legionella Urinary Antigen - Final
Negative for Legionella pneumophila Serogroup 1 antigen.
A negative result does not rule out the possiblity of
Legionella infection due to other serogroups or species of
Legionella. Clinical correlation is recommended.
04/26/24 15:02 Urine Streptococcus pneumoniae Antigen (M - Final
Negative for Streptococcus pneumoniae antigen.
A negative result does not exclude infection with
Streptococcus pneumoniae. Clinical correlation is
recommended.
04/26/24 07:51 Nose Nasal Screen MRSA (PCR) - Final
MRSA not detected - performed by PCR methodology.
04/26/24 00:35 Nasal Swab Influenza Types A & B (MARNI) - Final
Negative for Influenza A & B, NAAT
Negative results must be combined with clinical observations
and patient history.
Nucleic Acid Amplification test (NAAT)performed on the
[employer] platform.
--- NOTE | 2024-04-28 14:05 | VNURNOTE ---
[facility], past admissions reviewed and patient either declined VN or did not have any VN arranged at discharge.
--- NOTE | 2024-04-28 14:30 | CM ---
CM reviewed chart- ADC >48 hours
Downgraded from ICU to tele today, extubated day prior
PT recommendation of VN but ambulation assessment deferred to next PT session
CM to continue to follow and follow up with pt on dc planning after ambulation assessment
Pt currently on 3L O2 and has home setup
CM will continue to follow for dc planning
Discharge Disposition- home, anticipate with VN, follow for higher needs
--- NOTE | 2024-04-28 15:41 | CARDSERVLU ---
Echocardiogram with Lumason completed after protocol screening completed. Allergies verified.
Patent IV site: _rt arm PICC__
IV site flushed with 0.9% NaCl pre and post administration.
Diluted bolus method utilized to enhance visualization of ventricular jackson.
Total volume given: __4.0__ mL
Patient tolerated all procedures well without complications.
[2024-04-28] MEDS: DUONEB INH (15:48)
[2024-04-28] MEDS: MUCINEX 600 MG PO (19:42)
[2024-04-29 03:10] VITALS: PULSE 2; PULSE 59
[2024-04-29 03:11] VITALS: BP 133/78
[2024-04-29] MEDS: MAXIPIME 1000 MG IV ×2 (05:25→12:54)
[2024-04-29] MEDS: STERILE WATER FOR INJECTION 10 ML IV ×2 (05:25→12:55)
[2024-04-29 06:00] LABS: Hematocrit 39.6 % (39.0-52.0); Hemoglobin 12.1 g/dL (13.0-18.0); Mean Corp Hgb Conc. 30.6 g/dL (33.0-37.0); Mean Corpuscular Hgb 23.5 pg (27.0-31.0); Mean Corpuscular Volume 76.9 fL (80.0-94.0); Mean Platelet Volume 11.1 fL (7.4-10.4); Platelet Count 152 10^3/uL (130-400); Red Blood Cell Count 5.15 10^6/uL (4.70-6.10); Red Cell Dist. Width 17.9 % (11.5-14.5); White Blood Cell Count 9.2 10^3/uL (4.8-10.8)
[2024-04-29 06:21] LABS: Blood Urea Nitrogen 53 mg/dl (9-20); Calcium 8.6 mg/dl (8.4-10.2); Chloride 91 mmol/L (98-107); Estimated Creatinine Clearance 38 ml/min; Glucose 103 mg/dl (70-99); Magnesium 2.5 mg/dl (1.6-2.3); Potassium 3.7 mmol/L (3.5-5.1); Sodium 139 mmol/L (135-145); eGFR 31.24
[2024-04-29 06:32] LABS: Carbon Dioxide 35 mmol/L (22-30)
[2024-04-29 07:00] VITALS: BP 140/68
[2024-04-29] MEDS: PULMICORT 0.5 MG INH (08:53)
[2024-04-29] MEDS: PROTONIX 40 MG PO (08:53)
[2024-04-29] MEDS: MUCINEX 600 MG PO (08:53)
[2024-04-29] MEDS: DUONEB 3 ML INH ×3 (08:53→15:08)
[2024-04-29] MEDS: HEPARIN 5000 UNITS SC (08:54)
[2024-04-29] MEDS: DELTASONE 40 MG PO (08:54)
[2024-04-29] MEDS: MIRALAX 17 GRAMS TUBE (08:54)
[2024-04-29] MEDS: ZITHROMAX 250 MG PO (08:54)
--- NOTE | 2024-04-29 09:26 | W.PN.CARDCBS ---
Addendum entered and electronically signed by Jeremy De Anda MD 04/29/24 13:42:
I saw and examined the patient.
The COOKER HELPER or PA's note was reviewed and I agree with the note.
Comment: General: Well developed, well nourished in NAD.
Neck: Supple, no JVD, HJR, carotids +2 B/L, no bruits bilaterally.
Heart: Non displaced PMI, RRR, no murmurs, No S3, S4, no rubs.
Lungs: Scattered rhonchi
Extremities: No clubbing, cyanosis or edema bilaterally.
Neuro: Grossly nonfocal, awake, alert and oriented x3.
He insist on being discharged. He is on baseline oxygen level. Restart Lasix 80 mg p.o. twice daily and check renal profile in 1 week. He is urged to take medications and follow compliant diet. Follow-up as been arranged. Discussed with primary
service.
Original Note:
Today's Communication / Plan
-
Improving creatinine 2.2.
Consider resumption of diuretics
Continue treatment of COPD/pneumonia
Impression / Plan
-
PCP: Dr. Mariee
Primary Manager Terminal: Dr. Bill
Impression:
Presented 04/25/2024 w/ acute on chronic respiratory failure
COPD exacerbation, possible pneumonia
Chronic HFpEF
Nonischemic myocardial injury with peak troponin of 1.2
TME with untreated GUCCI, pt not taking CPAP
CKD 3
h/o Pancreatic pseudocyst and necrotizing pancreatitis due to gallstone with prolonged hospitalization for multisystem organ failure, vent-dependent respiratory failure at [place] on 2017
history of VT s/p single chamber Medtronic ICD 05/15/18 as secondary prevention for syncope, VT
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
Obstructive sleep apnea, noncompliant w/ CPAP
Noncompliance
Non-obstructive CAD by cath 05/13/18
COPD/obstructive lung disease, oxygen dependent 3 lpm at rest, followed by [facility]
Pulmonary hypertension
Hypertension
Hyperlipidemia
h/o orthostatic hypotension
Osteoarthritis
h/o R subclavian vein DVT after dialysis catheter placement 2017.
h/o calf DVT (?left)
h/o traumatic amputation of R thumb
ECHO 03/28/22: Technically difficult study, Definity used, EF 70%, moderate concentric LVH, hypokinetic RV free wall, PAP 45 to 50 mmHg
ECHO 05/02/23: EF greater than 75%, posterior MAC, thickened mitral valve leaflets, trace MR, mild to moderate TR, PAP 44 mmHg, dilated hypokinetic RV, no significant change compared to prior
Echo 04/01/24: Normal left ventricular chamber size. Mild concentric left ventricular hypertrophy. Hyperdynamic left ventricular systolic function. LV ejection fraction is 65-70% by Cottrell's method of discs. Reduced right ventricular systolic
function. Pacer wire seen in right ventricle. Posterior mitral annular calcification. Mild to moderate tricuspid regurgitation.Estimated pulmonary artery pressure of 45-50 mmHg Assuming a right atrial pressure of 3 mmHg. Normal pericardium without
effusion.The aortic root is of normal size. No significant change compared to 2022 echocardiogram
Echo with Definity 04/28/2024: Limited study: EF 65 to 70%. No obvious wall motion abnormalities. No pericardial effusion
Plan:
-Acute on chronic respiratory failure, suspect this is multifactorial due to noncompliance, chronic HFpEF as well as GUCCI, pneumonia and COPD
-proBNP was 9020 on admission.
-Weight down 6 pounds since admission despite diuresis on hold secondary to MONTSERRAT on CKD
-Volume status is difficult but he does not appear to be acutely volume overloaded
-Creat slowly improving, peaked 2.6->currently 2.2. Plan is for eventual resumption of diuresis when renal function stabilizes
-Low-level troponin elevation, suspect nonischemic myocardial injury troponin elevation due to MONTSERRAT, heart failure and pneumonia, peaked at 1.17
-Repeat limited echo 04/28/2024 with preserved ejection fraction
-Nonsustained VT (4 beats) seen on admission ECG; Continues to have frequent PVCs but no additional VT
-Suspect this was precipitated by profound acidosis and hypoxia
-K+3.7, mag 2.5
-Continue to monitor on telemetry
Continue treatment for pneumonia and COPD
Progress Note - Manager Terminal
Subjective
Date of Service: April 29, 2024
Been seen and examined. Patient sitting up in chair eating breakfast. He reports he is feeling better. Significantly improved shortness of breath and lower extremity edema.
Objective
Labs:
04/29/24 05:47
04/29/24 05:47
Labs
Hgb 12.1 g/dL (13.0-18.0) L 04/29/24 05:47
Hct 39.6 % (39.0-52.0) 04/29/24 05:47
Plt Count 152 10^3/uL (130-400) 04/29/24 05:47
PT 14.7 Sec (11.4-14.6) H 04/25/24 23:00
INR 1.14 04/25/24 23:00
Sodium 139 mmol/L (135-145) 04/29/24 05:47
Potassium 3.7 mmol/L (3.5-5.1) 04/29/24 05:47
BUN 53 mg/dl (9-20) H 04/29/24 05:47
Creatinine 2.2 mg/dL (0.7-1.3) H 04/29/24 05:47
Glucose 103 mg/dl (70-99) H 04/29/24 05:47
Troponins
04/26/24 04/26/24
10:59 16:41
Troponin I 1.170 H* D 1.100 H*
Vital Signs and I&O:
Vital Signs
Temp Pulse Resp BP Pulse Ox
98.0 F 58 18 140/68 94
04/29/24 07:00 04/29/24 08:55 04/29/24 07:00 04/29/24 07:00 04/29/24 07:00
Vital Signs
Temp Pulse Resp BP Pulse Ox
98.0 F 58 18 140/68 94
04/29/24 07:00 04/29/24 08:55 04/29/24 07:00 04/29/24 07:00 04/29/24 07:00
Intake & Output
04/27/24 04/28/24 04/29/24 04/30/24
06:59 06:59 06:59 06:59
Intake Total 1139.1 / 1170.5 456.3 / 456.3 1340 / 1340
Output Total 1240 / 1340 3475 / 3625 1375 / 1375
Balance -100.9 / -169.5 -3018.7 / -3168.7 -35 / -35
Physical Exam
Physical Exam
GEN: No distress, awake, Ox3
HEENT: supple, anicteric, mmm
LUNGS: Bilateral scattered rhonchi CTA; wearing oxygen 3 L/min via nasal cannula
CV: Reg, no murmur, rub or gallop
ABD: soft, BS+, NT/ND
EXT: No edema, clubbing or cyanosis
NEURO: Gross non-focal
SKIN: No rash, dry, pink
[2024-04-29 11:00] VITALS: BP 127/71
--- NOTE | 2024-04-29 11:04 | W.PN.HOSP.TC ---
Addendum entered and electronically signed by Violet Rice MD 04/29/24 15:05:
total DC time 40 min
Original Note:
Today's Communication/Plan
-
see A/P
Assessment / Plan
Assessment / Plan
A/P:
# Acute on chronic hypercarbic respiratory failure likely multifactorial secondary to CHF exacerbation/atelectasis with mucous plugging of left lung/COPD exacerbation, cannot rule out pneumonia
Extubated 04/28
weaned back to 3L NC during day time, pt is on home O2 at 3L NC
cont abx cefepime/azithromycin
duonebs
IV decadron -> prednisone taper
cleared for solid/thin liquid per SPL eval
# Presumed septic shock from CAP
Off pressor
IV Abx cefepime/azithromycin -> Cefdinir and azithromycin for total 5 days
Blood cultures negative, MRSA screen negative, urine Legionella/Strep Ag negative
sputum culture noted Rare Usual Respiratory Hui
# Acute on chronic HFpEF
Per Card, noncompliance is a major issue
s/p IV lasix 60 mg x1
Card on board, planning on restarting lasix , recc to start PO lasix 80 mg BID (previous home dose)
Follow daily weight
Check BMP in 1 week, result to PCP
# Hyponatremia, mild
# Nonischemic myocardial injury most likely secondary to acute stress with respiratory failure/ infection
No chest pain
Trop peaked to 1.17
Follow up echo is limited, EF 65 to 70%
Cardiology on board
# Ventricular tachycardia now resolved
# History of VT status post Medtronic ICD in 2018
End of VT run noted on telemetry, patient was stable with pulses- most likely secondary to acidosis/hypoxia
VT now resolved
Amiodarone bolus given, drip not required
Cardiology on board
# MONTSERRAT on CKD 3B likely cardiorenal
Creatinine today at 2.2, was at 2.6; baseline at 1.7
Hold nephrotoxic agent
Check BMP in 1 week, result to PCP
# Hyperkalemia secondary to potassium supplement/MONTSERRAT
Status post insulin, dextrose, Lokelma
Stop potassium supplement
# Obstructive sleep apnea
# COPD
# Pulmonary hypertension
# Essential hypertension
# History of orthostatic hypotension
# Hyperlipidemia
Continue prophylactic aspirin
# Obesity
# Osteoarthritis
# History of right subclavian DVT
# History of lower extremity DVT
# History of polycythemia vera
# Anxiety/depression
Hold bupropion
Full code
DVT prophylaxis� heparin SQ
Dispo: PT recc HH
DW Card Dr De Anda, recc to restart PO Lasix 80 mg BID
Anticipated Discharge: Today
Subjective/Interval History
-
Date of Service: April 29, 2024
Objective Data
-
Labs:
Laboratory Results
04/29/24
05:47
WBC 9.2
Hgb 12.1 L
Hct 39.6
Plt Count 152
Sodium 139
Potassium 3.7
Chloride 91 L
Carbon Dioxide 35 H
BUN 53 H
Creatinine 2.2 H
Glucose 103 H
Calcium 8.6
Vital Signs:
Vital Signs
Temp Pulse Resp BP Pulse Ox
36.7 C 58 18 140/68 94
04/29/24 07:00 04/29/24 08:55 04/29/24 07:00 04/29/24 07:00 04/29/24 07:00
I&O
04/28/24 04/29/24 04/30/24
06:59 06:59 06:59
Intake Total 456.3 / 456.3 1340 / 1340
Output Total 3475 / 3625 1375 / 1375
Balance -3018.7 / -3168.7 -35 / -35
Review of Systems
-
All other systems: Reviewed and negative
Physical Exam
-
General: Well Developed, Well Nourished, Comfortable and Respiratory Distress (chronic)
HEENT: Moist Mucous Membranes and Oxygen (3L NC)
Respiratory: Clear to Auscultation and Non Labored Respirations; Negative Accessory Resp Muscle Use
Cardiac: Regular Rhythm and S1/S2
GI: Soft
Neuro: Awake and Alert
Psych: Calm and Intact Judgement/Insight
Data Reviewed
-
Diagnostic Radiology: Image personally visualized and interpreted and Report Reviewed by me
Labs: Labs Reviewed by me
--- NOTE | 2024-04-29 12:03 | CM ---
Received referral for VN services. Met with patient to discuss agency preference. He stated that he has two daughters who are nurses at home and therefore he does not feel like he needs to have any. Patient confirmed that he has o2 at Home. Patient
in agreement with discharge. IMM in chart.
Plan: Case management will continue to follow and assist with discharge planning. Home with no needs.
--- NOTE | 2024-04-29 14:45 | W.DCSUMMARY ---
Discharge Summary
Discharge Data
Date of Admission: 04/25/24
Date of Discharge: 04/29/24
-
Pending Results: No
Hospital Course
Principal Diagnosis:
Acute on chronic hypercapnic respiratory failure, multifactorial secondary to acute heart failure, atelectasis with mucous plugging of left lung, COPD exacerbation, possible community-acquired pneumonia (CAP)
Acute on chronic heart failure with preserved ejection fraction
Acute kidney injury (MONTSERRAT) on chronic kidney disease (CKD) stage IIIb, likely cardiorenal
Nonischemic myocardial injury likely secondary to acute stress with respiratory failure/ infection
Chronic Diagnoses:�
Obstructive sleep apnea
Chronic obstructive pulmonary disease
Pulmonary hypertension
Essential hypertension
History of orthostatic hypotension
Hyperlipidemia
Osteoarthritis
History of right subclavian deep vein thrombosis
History of lower extremity deep vein thrombosis
History of polycythemia vera
Anxiety/depression
Consultations:�
Cardiology
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
Procedures:�
None
Clinical course:�
This is a 69-year-old male, with past medical history as stated above, who presented with shortness of breath and productive cough for 2 days. Apparently his grandson was sick recently, and the patient was in contact with him.
Problem 1:
Acute on chronic hypercapnic respiratory failure, multifactorial secondary to acute heart failure, atelectasis with mucous plugging of left lung, COPD exacerbation, possible community-acquired pneumonia.
The patient was intubated on admission, and extubated on 04/28/2024.
He was weaned back to 3 L nasal cannula oxygen support which was what he was on at home prior to admission.
He received antibiotic as stated below.
He also received IV Decadron and was transitioned to oral prednisone. No further steroid was continued following discharge.
He was cleared for solid food with thin liquids per speech eval, which he tolerated well, prior to discharge.
Problem 2:
Presumed septic shock from CAP.
At one point he was requiring pressor which was discontinued subsequently.
The patient was treated with IV cefepime and azithromycin while in the hospital, and he can continue with oral Cefdinir and azithromycin for another 2 days (total 5 days).
Of note, his blood cultures, MRSA screen, urine Legionella and strep antigens were negative.
His sputum culture noted rare usual respiratory genie.
Problem 3:
Acute on chronic HFpEF.
According to cardiology, noncompliance is his major issue.
He was recommended to resume his prior to admission Lasix dose at 80 mg twice daily following discharge.
He can check BMP in 1 week, with result to his PCP.
Problem 4:
MONTSERRAT on CKD 3B likely cardiorenal.
His creatinine was at 2.2 on the day of discharge, of note it did peak at 2.6 during this admission; his baseline creatinine was at 1.7.
He can repeat BMP in 1 week with result to his PCP.
Problem 5:
Hyperkalemia secondary to potassium supplement.
His previous potassium supplement was discontinued.
As for the rest of his medical problems, they were stable during his hospital stay.
Discharge Plan
-
Patient Disposition: Home with Home Care
Discharge Diagnosis/Procedures: Acute on chronic hypercapnic respiratory failure likely multifactorial secondary to acute heart failure exacerbation, atelectasis with mucous plugging of left lung, possible community acquired pneumonia
Condition: Fair
Diet: As tolerated, Low Fat, Low Cholesterol, Low Sodium and Restrict fluids to 48 oz
Activity: As tolerated
Driving Restrictions: Not until seen by your Dr
Blood Work: BMP in 1 week, result to PCP
Specialty Instructions: Weigh Daily- Call MD for wt gain/loss 3 lbs overnight/5 lbs in 1 week
Instructions: *[facility] Heart Failure Instructions
Referrals:
Irais Infante PA-C [Specified Professional Personl] - 05/06/24 11:00 am (You have cardiology follow-up with Irais Infante on May 06 at 11 AM in [address] [facility]. If you are unable to make this appointment please call [phone] to
reschedule)
Jasbir Quevedo MD [Active] - in two to four weeks
Paula Mariee MD [Family Provider] - in less than 1 week
Additional Discharge Medication Instructions: Continue antibiotics Cefdinir/azithromycin for 2 more days.
Continue Lasix 80 mg twice daily.
Hold Imdur for now
Prescriptions:
New
cefdinir 300 mg capsule
300 mg PO Q12H 2 Days Qty: 4 0RF
azithromycin 500 mg tablet
500 mg PO DAILY 2 Days Qty: 2 0RF
Continued
bupropion HCl 300 MG tablet extended release 24 hr
300 mg PO DAILY
budesonide [Pulmicort] 0.5 MG/2 ML suspension for nebulization
0.5 mg IH R BID
Patient Comments:
MIX WITH ARFORMOTEROL
arformoterol [Brovana] 15 MCG/2 ML solution for nebulization
15 mcg IH R BID
albuterol sulfate 2.5 MG/3 ML solution for nebulization
2.5 mg inhalation R Q4HPRN PRN (Reason: shortness of breath )
Yupelri 175 MCG/3 ML solution for nebulization
175 mcg IH R DAILY@1200
aspirin 81 mg Tablet,Delayed Release (Dr/Ec)
81 mg PO DAILY
omeprazole 40 mg capsule,delayed release(DR/EC)
40 mg PO DAILY
gabapentin 300 mg capsule
300 mg PO HS
cholecalciferol (vitamin D3) [Vitamin D3] 50 mcg (2,000 unit) Capsule
50 mcg PO DAILY
[id number]-srb-zmspoem-ast 643-069-04-64 mg Capsule
1 cap PO DAILY
furosemide 80 MG tablet
80 mg PO BID@0800,1600 Qty: 60 0RF
Discontinued
isosorbide mononitrate 30 MG tablet extended release 24 hr
30 mg PO DAILY
potassium chloride [Klor-Con M20] 20 MEQ tablet,ER particles/crystals
20 meq PO BID
metolazone 2.5 mg Tablet
2.5 mg PO DAILYPRN PRN (Reason: weight gain) Qty: 5 0RF
Rx Instructions:
take one tab for weight gain of 2-3 pounds overnight
azithromycin 250 mg tablet
250 mg PO DAILY MDD X 4 DAYS
Discharge Orders:
Discharge Patient (As Directed); Ordered 04/29/24
Ordered By: Violet Rice
Discharge Date and Time
Print Language: TELUGU
[2024-04-29 15:00] VITALS: BP 124/69
== END 2024-04-29 16:32 | disposition home or self-care (01) | DRG 208 ==
LOC: 3 WEST ACU 23:35
PROVIDERS: Clinical Nurse Specialist Family Health; Nurse Practitioner Primary Care; Physician Assistant; ADMITTING PHYSICIAN Hospitalist; ATTENDING PHYSICIAN Internal Medicine; CONSULT PHYSICIAN Internal Medicine Cardiovascular Disease; CONSULT PHYSICIAN Internal Medicine Critical Care Medicine; EMERGENCY PHYSICIAN Emergency Medicine; FAMILY PHYSICIAN Family Medicine; OTHER PHYSICIAN Internal Medicine Cardiovascular Disease
PROC: 5A1935Z Respiratory Ventilation, Less than 24 Consecutive Hours (ICD-10-PCS; 2024-04-26)
DX: J96.22 Acute and chronic respiratory failure with hypercapnia (principal); I50.33 Acute on chronic diastolic (congestive) heart failure; A41.89 Other specified sepsis; R65.21 Severe sepsis with septic shock; G92.8 Other toxic encephalopathy; J44.1 Chronic obstructive pulmonary disease with (acute) exacerbation; J98.11 Atelectasis; J44.0 Chronic obstructive pulmonary disease with (acute) lower respiratory infection; N17.9 Acute kidney failure, unspecified; I5A Non-ischemic myocardial injury (non-traumatic); I47.20 Ventricular tachycardia, unspecified; E87.1 Hypo-osmolality and hyponatremia; Z11.52 Encounter for screening for COVID-19; I27.22 Pulmonary hypertension due to left heart disease; E87.5 Hyperkalemia; N18.32 Chronic kidney disease, stage 3b; E78.00 Pure hypercholesterolemia, unspecified; E66.9 Obesity, unspecified; F41.9 Anxiety disorder, unspecified; F32.9 Major depressive disorder, single episode, unspecified; Z91.199 Patient's noncompliance with other medical treatment and regimen due to unspecified reason
CPT/HCPCS: 93308; 31500; 36600; 71045; 80048; 80053; 81003; 81015; 82330; 82805; 83605; 83735; 83880; 84100; 84132; 84302; 84484; 85025; 85027; 85610; 87040; 87070; 87086; 87205; 87449; 87502; 87641; 87811; 87899; 92610; 93005; 93321; 93325; 94002; 94003; 94640; 94660; 96365; 96366; 96367; 96375; 97162; 97166; 99291; Q9950